=== PATIENT | female | born 1970 | race Caucasian/White ===

== ENCOUNTER 2022-05-10 18:46 | Emergency (ER) | payer BC ==
--- OUTSIDE RECORDS SUMMARY | 2022-05-10 18:49 | XMS REPORT | Continuity of Care Document ---
:1970 Author Organization [facility] t Address [address] [place] [address] Care Team Providers Name Role Phone Pcp, Patient Does Not Have A Primary Care Physician [id number] KAYLYN SAENZ Attending Clinician Unavailable KAYLYN SAENZ Attending Clinician Unavailable MEGAN LIND Attending Clinician Unavailable Tiarra Attending Clinician Unavailable Remberto Ulrich MD Attending Clinician Unavailable Lab, Ang - Db Attending Clinician Unavailable Megan Lind MD Attending Clinician REMBERTO ULRICH Attending Clinician Unavailable Doctor Unassigned, Oretta Attending Clinician Unavailable Mary Ashraf MA Attending Clinician Unavailable Juany Rubin MA Attending Clinician Unavailable Tiarra Admitting Clinician Unavailable Payers Payer Name Policy Type Policy Number Effective Date Expiration Date S ource [place] [id number] 2020 00:00:00 [place] [id number] 2020 00[place]00 [place] Problems Condition Condition Condition Status Onset Resolution Last Treating Co mments Source Name Details Category Date Date Treatment Clinician Date Menopausal Menopausal Disease Active U nivers and female and female 1-16 it y of clim[place] 00 Medica l Branch Overweight Overweight Disease Active U nivers (BMI (BMI 1-16 ity of 25.0-29.9) 25.0-29.9[place] Well woman Well woman Disease Active U nivers exam with exam with 10-28 ity of routine routine 00:00: [place] gynecologi gynecologi 00 Me dical brayden exam brayden exam Branch Hypertensi Hypertensi Disease Active Overview : Univers on on 08-14 Formattin ity of 00:00: g of this note Medical might be Branch different from the original. Last Assessmen t & Plan: Formattin g of this note might be different from the original. Based on her reported Measures at her gynecolog ist office the BP is controlle d on Losartan 50mg. No longer taking the Amlodipin e as in past visits. Will refill for 3 months and she will come in early November for blood draw then a face to face visit to assess BP. Get more exercise and continue to watch diet. 15 minutes spent with this telemed visit. Allergies, Adverse Reactions, Alerts Allergy Allergy Status Severity Reaction(s) Onset Inactive Treating Comm ents Source Name Type Date Date Clinician Hydrocod Propensi Active Unknown - Uni vers one ty to See comments 10-28 ity of adverse 00:00: [place] reaction 00 Medical s to Branch drug Penicill Propensi Active Rash Univer s ins ty to 10-28 ity of adverse 00:00: [place] reaction 00 Medical s Branch PENICILL Drug Active High Rash Univers INS Class 10-28 ity of 00:00: 00 Medical Branch HYDROCOD DRUG Active High Unknown-Cmnt Un brittany ONE INGREDI 10-28 ity of 00:00: 00 Medical Branch Penicill Propensi Active Rash Univer s ins ty to 10-28 ity of adverse 00:00: [place] reaction 00 Medical s Branch Penicill Propensi Active Rash 0 Univer s ins ty to 10-28 ity of adverse 00:00: [place] reaction 00 Medical s Branch NO KNOWN Drug Active Univers ALLERGIE Class ity of S [place] [facility] Hydrocod Allergy Active Naomi one to Orthope substanc dic e Sports Medicin e PENICILL Allergy Active Naomi INS to Orthope substanc dic e Sports Medicin e Social History Social Habit Start Date Stop Date Quantity Comments Source History [facility] o f Alcohol Std [place] Medical Drinks Branch History [facility] o f Alcohol Binge [place] Medic al Branch History [facility] o f Alcohol Comment [place] Med ical Branch Alcohol intake 2022-04-19 2022-04-19 Lifetime University of 00:00:00 00:00:00 non-drinker [facility] (finding) Branch Exposure to 2022-03-28 2022-04-07 Not sure University SARS-CoV-2 00:00:00 13:07:00 [facility] (event) Branch Tobacco use and 2021-12-29 2021-12-29 Smokeless tobacco Un iversity of exposure 00:00:00 00:00:00 non-user [facility] Branch History SDOH 2020-10-28 2020-10-28 1 University o f Alcohol Frequency 00:00:00 00:00:00 [facility] edical [place] Sex [birth year] Universit y of 00:00:00 00:00:00 [facility] Smoking Status Start Date Stop Date Source Never smoked tobacco [facility] Medications Ordered Filled Start Stop Current Ordering Indication Dosage Frequency Signature Comments Components Source Medication Medication Date Date Medication? Clinician (SIG) Name Name estradioL Yes [id number] 2g Insert 2 g Univers (ESTRACE) 1-04 into ity of 0.01 % (0.1 00:[place] mg/gram[place] 00 weekly. Medical vaginal Branch cream estradioL Yes [id number] 2g Insert 2 g Univers (ESTRACE) 1-04 into ity of 0.01 % (0.1 00:00: [place] mg/gram[place] 00 weekly. Medical vaginal Branch cream NUVARING Yes [id number] INSERT 1 Univers 0.12-0.015 7-11 RING ity of mg/24 hr 00:00: [place] vaginal 00 1 TIME Medical insert EVERY Branch MONTH. LEAVE IN PLACE FOR 3 CONSECUTIV E WEEKS, THEN REMOVE FOR 1 WEEK NUVARING Yes [id number] INSERT 1 Univers 0.12-0.015 7-11 RING ity of mg/24 hr 00:00: [place] vaginal 00 1 TIME Medical insert EVERY Branch MONTH. LEAVE IN PLACE FOR 3 CONSECUTIV E WEEKS, THEN REMOVE FOR 1 WEEK NUVARING Yes [id number] INSERT 1 Univers 0.12-0.015 7-11 RING ity of mg/24 hr 00:00: [place]ALLY [place] vaginal 00 1 TIME Medical insert EVERY Branch MONTH. LEAVE IN PLACE FOR 3 CONSECUTIV E WEEKS, THEN REMOVE FOR 1 WEEK NUVARING Yes [id number] INSERT 1 Univers 0.12-0.015 7-11 RING ity of mg/24 hr 00:00: [place]ALLY [place] vaginal 00 1 TIME Medical insert EVERY Branch MONTH. LEAVE IN PLACE FOR 3 CONSECUTIV E WEEKS, THEN REMOVE FOR 1 WEEK NUVARING Yes [id number] INSERT 1 Univers 0.12-0.015 7-11 RING ity of mg/24 hr 00:00: [place]ALLY [place] vaginal 00 1 TIME Medical insert EVERY Branch MONTH. LEAVE IN PLACE FOR 3 CONSECUTIV E WEEKS, THEN REMOVE FOR 1 WEEK NUVARING Yes [id number] INSERT 1 Univers 0.12-0.015 7-11 RING ity of mg/24 hr 00:00: [place]ALLY [place] vaginal 00 1 TIME Medical insert EVERY Branch MONTH. LEAVE IN PLACE FOR 3 CONSECUTIV E WEEKS, THEN REMOVE FOR 1 WEEK NUVARING Yes [id number] INSERT 1 Univers 0.12-0.015 7-11 RING ity of mg/24 hr 00:00: [place]AG[place]ALLY [place] vaginal 00 1 TIME Medical insert EVERY Branch MONTH. LEAVE IN PLACE FOR 3 CONSECUTIV E WEEKS, THEN REMOVE FOR 1 WEEK NUVARING Yes [id number] INSERT 1 Univers 0.12-0.015 7-11 RING ity of mg/24 hr 00:00: [place]ALLY [place] vaginal 00 1 TIME Medical insert EVERY Branch MONTH. LEAVE IN PLACE FOR 3 CONSECUTIV E WEEKS, THEN REMOVE FOR 1 WEEK NUVARING Yes [id number] INSERT 1 Univers 0.12-0.015 7-11 RING ity of mg/24 hr 00:00: [place]AG[place]ALLY [place] vaginal 00 1 TIME Medical insert EVERY Branch MONTH. LEAVE IN PLACE FOR 3 CONSECUTIV E WEEKS, THEN REMOVE FOR 1 WEEK NUVARING Yes [id number] INSERT 1 Univers 0.12-0.015 7-11 RING ity of mg/24 hr 00:00: [place]ALLY [place] vaginal 00 1 TIME Medical insert EVERY Branch MONTH. LEAVE IN PLACE FOR 3 CONSECUTIV E WEEKS, THEN REMOVE FOR 1 WEEK NUVARING Yes [id number] INSERT 1 Univers 0.12-0.015 7-11 RING ity of mg/24 hr 00:00: [place]AG[place]ALLY [place] vaginal 00 1 TIME Medical insert EVERY Branch MONTH. LEAVE IN PLACE FOR 3 CONSECUTIV E WEEKS, THEN REMOVE FOR 1 WEEK NUVARING Yes [id number] INSERT 1 Univers 0.12-0.015 7-11 RING ity of mg/24 hr 00:00: VAG[place]ALLY [place] vaginal 00 1 TIME Medical insert EVERY Branch MONTH. LEAVE IN PLACE FOR 3 CONSECUTIV E WEEKS, THEN REMOVE FOR 1 WEEK NUVARING Yes [id number] INSERT 1 Univers 0.12-0.015 7-11 RING ity of mg/24 hr 00:00: VAG[place]ALLY [place] vaginal 00 1 TIME Medical insert EVERY Branch MONTH. LEAVE IN PLACE FOR 3 CONSECUTIV E WEEKS, THEN REMOVE FOR 1 WEEK NUVARING Yes [id number] INSERT 1 Univers 0.12-0.015 7-11 RING ity of mg/24 hr 00:00: VAGINALLY [place] vaginal 00 1 TIME Medical insert EVERY Branch MONTH. LEAVE IN PLACE FOR 3 CONSECUTIV E WEEKS, THEN REMOVE FOR 1 WEEK NUVARING Yes [id number] INSERT 1 Univers 0.12-0.015 7-11 RING ity of mg/24 hr 00:00: VAGINALLY [place] vaginal 00 1 TIME Medical insert EVERY Branch MONTH. LEAVE IN PLACE FOR 3 CONSECUTIV E WEEKS, THEN REMOVE FOR 1 WEEK famotidine Yes Univers 40 mg 7-06 ity of tablet 00:00: [place] 00 Medical Branch famotidine Yes Univers 40 mg 7- ity of tablet 00:00: [place] 00 Medical Branch famotidine 2021- No Univer s 40 mg -12-29 ity of tablet 00:00: 00:00 [place] 00 :00 Medical Branch famotidine 2021- No Univer s 40 mg 10-07 ity of tablet 00:00: 00:00 [place] 00 :00 Medical Branch DULOXETINE Yes [id number] 20mg TAKE 1 U nivers 20 mg 6-06 CAPSULE BY ity of capsule 00:00: MOUTH [place] 00 DAILY Medical Branch DULOXETINE 2022-0 Yes [id number] 20mg TAKE 1 U nivers 20 mg 6-06 CAPSULE BY ity of capsule 00:00: MOUTH [place] 00 DAILY Medical Branch DULOXETINE 2022-0 Yes [id number] 20mg TAKE 1 U nivers 20 mg 6-06 CAPSULE BY ity of capsule 00:00: MOUTH [place] 00 DAILY Medical Branch DULOXETINE 2022-0 Yes [id number] 20mg TAKE 1 U nivers 20 mg 6-06 CAPSULE BY ity of capsule 00:00: MOUTH [place] 00 DAILY Medical Branch DULOXETINE 2-0 Yes [id number] 20mg TAKE 1 U nivers 20 mg 6-06 CAPSULE BY ity of capsule 00:00: MOUTH [place] 00 DAILY Medical Branch DULOXETINE 2-0 2022- No [id number] 20mg TAKE 1 Univers 20 mg 6-06 -27 CAPSULE BY ity of capsule 00:00: 00:00 [facility] 00 :00 DAILY Medical Branch DULOXETINE 2-0 2022- No [id number] 20mg TAKE 1 Univers 20 mg 6-09 10- CAPSULE BY ity of capsule 00:00: 00:00 [facility] 00 :00 DAILY Medical Branch montelukast 2021-0 Yes 10mg Take 10 mg Univers 10 mg 5-04 by mouth ity of tablet 00:00: in the [place] 00 morning. Medical Branch predniSONE 2021-0 Yes TAKE 3 Unive rs 20 mg 5-04 TABLETS BY ity of tablet 00:00: [place] [address] EVERY DAY Medical FOR 3 DAYS Branch THEN TAKE 2 TABLETS BY MOUTH EVERY DAY FOR 3 DAYS THEN TAKE 1 TABLET BY MOUTH EVERY DAY FOR 3 DAYS montelukast 2021-0 Yes 10mg Take 10 mg Univers 10 mg 5-04 by mouth ity of tablet 00:00: in the [place] 00 morning. Medical Branch predniSONE 2-0 Yes TAKE 3 Unive rs 20 mg 5-04 TABLETS BY ity of tablet 00:00: [place] [address] EVERY DAY Medical FOR 3 DAYS Branch THEN TAKE 2 TABLETS BY MOUTH EVERY DAY FOR 3 DAYS THEN TAKE 1 TABLET BY MOUTH EVERY DAY FOR 3 DAYS montelukast 2022-0 2022- No 10mg Take 10 mg Univers 10 mg 5-04 -27 by mouth ity of tablet 00:00: 00:00 in the [place] 00 :00 morning. Medical Branch predniSONE 2022-0 2021- No TAKE 3 Univ ers 20 mg 08-05 TABLETS BY ity of tablet 00:00: 00:00 MOUTH [place] 00 :00 EVERY DAY Medical FOR 3 DAYS Branch THEN TAKE 2 TABLETS BY MOUTH EVERY DAY FOR 3 DAYS THEN TAKE 1 TABLET BY MOUTH EVERY DAY FOR 3 DAYS montelukast 2021-2021- No 10mg Take 10 mg Univers 10 mg 08-05 by mouth ity of tablet 00:00: 00:00 in the [place] 00 :00 morning. Medical Branch predniSONE 2021-2021- No TAKE 3 Univ ers 20 mg 08-05 TABLETS BY ity of tablet 00:00: 00:00 MOUTH [place] 00 :00 EVERY DAY Medical FOR 3 DAYS Branch THEN TAKE 2 TABLETS BY MOUTH EVERY DAY FOR 3 DAYS THEN TAKE 1 TABLET BY MOUTH EVERY DAY FOR 3 DAYS DULoxetine Yes [id number] 30mg Take 1 U nivers (CYMBALTA) 7-27 capsule by ity of 30 mg 00:00: mouth [place] capsule 00 daily. Medical Branch DULoxetine Yes [id number] 30mg Take 1 U nivers (CYMBALTA) 7-27 capsule by ity of 30 mg 00:00: mouth [place] capsule 00 daily. Medical Branch DULoxetine Yes [id number] 30mg Take 1 U nivers (CYMBALTA) 7-27 capsule by ity of 30 mg 00:00: mouth [place] capsule 00 daily. Medical Branch DULoxetine Yes [id number] 30mg Take 1 U nivers (CYMBALTA) 7-27 capsule by ity of 30 mg 00:00: mouth [place] capsule 00 daily. Medical Branch DULoxetine Yes [id number] 30mg Take 1 U nivers (CYMBALTA) 7-27 capsule by ity of 30 mg 00:00: mouth [place] capsule 00 daily. Medical Branch DULoxetine Yes [id number] 30mg Take 1 U nivers (CYMBALTA) 7-27 capsule by ity of 30 mg 00:00: mouth [place] capsule 00 daily. Medical Branch DULoxetine Yes [id number] 30mg Take 1 U nivers (CYMBALTA) 7-27 capsule by ity of 30 mg 00:00: mouth [place] capsule 00 daily. Medical Branch DULoxetine Yes [id number] 30mg Take 1 U nivers (CYMBALTA) 7-27 capsule by ity of 30 mg 00:00: mouth [place] capsule 00 daily. [facility] Branch DULoxetine Yes [id number] 30mg Take 1 U nivers (CYMBALTA) 7-27 capsule by ity of 30 mg 00:00: mouth [place] capsule 00 daily. [facility] Branch DULoxetine Yes [id number] 30mg Take 1 U nivers (CYMBALTA) 7-27 capsule by ity of 30 mg 00:00: mouth [place] capsule 00 daily. [facility] Branch DULoxetine Yes [id number] 30mg Take 1 U nivers (CYMBALTA) 7-27 capsule by ity of 30 mg 00:00: mouth [place] capsule 00 daily. [facility] Branch DULoxetine Yes [id number] 30mg Take 1 U nivers (CYMBALTA) 7-27 capsule by ity of 30 mg 00:00: mouth [place] capsule 00 daily. [facility] Branch NUVARING Yes [id number] 1{each} Insert 1 Univers (NUVARING) 7-27 Each into ity of 0.12-0.015 00:00: vagina [place] mg/24 hr 00 once every Medic al vaginal month. Branch insert Insert vaginally and leave in place for 3 consecutiv e weeks, then remove for 1 week. DULoxetine Yes [id number] 30mg Take 1 U nivers (CYMBALTA) 7-27 capsule by ity of 30 mg 00:00: mouth [place] capsule 00 daily. [facility] Branch DULoxetine Yes [id number] 20mg Take 1 U nivers (CYMBALTA) 7-27 capsule by ity of 20 mg 00:00: mouth [place] capsule 00 daily. [facility] Branch NUVARING Yes [id number] 1{each} Insert 1 Univers (NUVARING) 7-27 Each into ity of 0.12-0.015 00:00: vagina [place] mg/24 hr 00 once every Medic al vaginal month. Branch insert Insert vaginally and leave in place for 3 consecutiv e weeks, then remove for 1 week. DULoxetine 2020- Yes [id number] 30mg Take 1 U nivers (CYMBALTA) 7-27 capsule by ity of 30 mg 00:00: mouth [place] capsule 00 daily. Medical Branch DULoxetine Yes [id number] 20mg Take 1 U nivers (CYMBALTA) 7-27 capsule by ity of 20 mg 00:00: mouth [place] capsule 00 daily. [facility] Branch NUVARING Yes [id number] 1{each} Insert 1 Univers (NUVARING) 7-27 Each into ity of 0.12-0.015 00:00: vagina [place] mg/24 hr 00 once every Medic al vaginal month. Branch insert Insert vaginally and leave in place for 3 consecutiv e weeks, then remove for 1 week. DULoxetine Yes [id number] 30mg Take 1 U nivers (CYMBALTA) 7-27 capsule by ity of 30 mg 00:00: mouth [place] capsule 00 daily. Medical Branch DULoxetine Yes [id number] 20mg Take 1 U nivers (CYMBALTA) 7-27 capsule by ity of 20 mg 00:00: mouth [place] capsule 00 daily. Medical Branch NUVARING Yes [id number] 1{each} Insert 1 Univers (NUVARING) 7-27 Each into ity of 0.12-0.015 00:00: vagina [place] mg/24 hr 00 once every Medic al vaginal month. Branch insert Insert vaginally and leave in place for 3 consecutiv e weeks, then remove for 1 week. DULoxetine Yes [id number] 30mg Take 1 U nivers (CYMBALTA) 7-27 capsule by ity of 30 mg 00:00: mouth [place] capsule 00 daily. Medical Branch DULoxetine Yes [id number] 20mg Take 1 U nivers (CYMBALTA) 7-27 capsule by ity of 20 mg 00:00: mouth [place] capsule 00 daily. [facility] Branch NUVARING Yes [id number] 1{each} Insert 1 Univers (NUVARING) 7-27 Each into ity of 0.12-0.015 00:00: vagina [place] mg/24 hr 00 once every Medic al vaginal month. Branch insert Insert vaginally and leave in place for 3 consecutiv e weeks, then remove for 1 week. DULoxetine 2020-0 Yes [id number] 30mg Take 1 U nivers (CYMBALTA) 7-27 capsule by ity of 30 mg 00:00: mouth [place] capsule 00 daily. Medical Branch DULoxetine Yes [id number] 30mg Take 1 U nivers (CYMBALTA) - capsule by ity of 30 mg 00:00: mouth [place] capsule 00 daily. Medical Branch DULoxetine Yes [id number] 30mg Take 1 U nivers (CYMBALTA) - capsule by ity of 30 mg 00:00: mouth [place] capsule 00 daily. Medical Branch DULoxetine Yes [id number] 30mg Take 1 U nivers (CYMBALTA) 10-28 capsule by ity of 30 mg 00:00: mouth [place] capsule 00 daily. Medical Branch NUVARING 2021- No [id number] 1{each} Insert 1 Univers (NUVARING) 10-28 07-11 Each into ity of 0.12-0.015 00:00: 00:00 [place] mg/24 hr 00 :00 once every Medic al vaginal month. Branch insert Insert vaginally and leave in place for 3 consecutiv e weeks, then remove for 1 week. DULoxetine 2021- No [id number] 20mg Take 1 Univers (CYMBALTA) 10-28 06-06 capsule by it y of 20 mg 00:00: 00:00 mouth [place] capsule 00 :00 daily. Medical Branch losartan 50 0 Yes Univer s mg tablet 10-23 ity of 00:00: [place] 00 Medical Branch losartan 50 2020-0 Yes Univer s mg tablet 10-23 ity of 00:00: 00 Medical Branch losartan 50 2020-0 Yes Univer s mg tablet 7-22 ity of 00:00: [place] 00 Medical Branch losartan 50 2020-0 Yes Univer s mg tablet 7-22 ity of 00:00: [place] 00 Medical Branch losartan 50 2020-0 Yes Univer s mg tablet 7- ity of 00:00: 00 Medical Branch losartan 50 2020-0 Yes Univer s mg tablet 7-22 ity of 00:00: 00 Medical Branch losartan 50 2020-0 Yes Univer s mg tablet 7-22 ity of 00:00: 00 Medical Branch losartan 50 2020-0 Yes Univer s mg tablet 7-22 ity of 00:00: Medical Branch losartan 50 2020-0 Yes Univer s mg tablet 10-23 ity of 00:00: Medical Branch losartan 50 2020-0 Yes Univer s mg tablet 10-23 ity of 00:00: Medical Branch losartan 50 2020-0 Yes Univer s mg tablet 10-23 ity of 00:00: [place] [facility] losartan 50 2020-0 Yes Univer s mg tablet 10-23 ity of 00:00: [place] Medical [facility] losartan 50 2020-0 Yes Univer s mg tablet 10-23 ity of 00:00: [place] Medical Branch losartan 50 2020-0 Yes Univer s mg tablet 10-23 ity of 00:00: [place] Medical [facility] losartan 50 2020-0 Yes Univer s mg tablet 10-23 ity of 00:00: [place] Medical Branch losartan 50 2020-0 Yes Univer s mg tablet 10-23 ity of 00:00: [place] Medical Branch losartan 50 2020-0 Yes Univer s mg tablet 10-23 ity of 00:00: [place] Medical Branch losartan 50 2020-0 Yes Univer s mg tablet 10-23 ity of 00:00: [place] Medical [facility] losartan 50 2020-0 Yes Univer s mg tablet 10-23 ity of 00:00: [place] [facility] losartan 50 2020-0 Yes Univer s mg tablet 10-23 ity of 00:00: [place] [facility] duloxetine duloxetine No duloxetine Naomi 60 mg 60 mg 60 mg Orthope capsule,del capsule,del capsule,de dic ayed ayed layed Sports release release release Medici n TAKE 1 TAKE 1 TAKE 1 e CAPSULE BY CAPSULE BY CAPSULE BY MOUTH EVERY MOUTH EVERY MOUTH DAY DAY EVERY DAY hydrocodone hydrocodone No 1 Q8H hydrocodon Naomi 5 5 e 5 Orthope mg-acetamin mg-acetamin mg-acetami dic ophen 325 ophen 325 nophen 325 Sports mg tablet mg tablet mg tablet Medicin Take 1 Take 1 Take 1 e tablet tablet tablet every 8 every 8 every 8 hours by hours by hours by oral route oral route oral route as needed. as needed. as needed. meloxicam meloxicam No 1 Q1D meloxicam Naomi 15 mg 15 mg 15 mg Orth[facility] tablet Take tablet Take tablet dic 1 tablet 1 tablet Take 1 Sport s every day every day tablet Med icin by oral by oral every day e route for route for by oral 30 days. 30 days. route for 30 days. methylpredn methylpredn No methylpred Naomi isolone 4 isolone 4 nisolone 4 Orthope mg tablets mg tablets mg tablets dic in a dose in a dose in a dose Sports pack Take pack Take pack Take Medicin by oral by oral by oral e route as route as route as directed directed directed Immunizations Ordered Filled Immunization Date Status Comments [facility] e Immunization Name Name SARS-COV-2 COVID-19 2020-11-18 Completed Unive rsity of PFIZER VACCINE 00:00:00 [facility] SARS-COV-2 COVID-19 2020-11-18 Completed Unive rsity of PFIZER VACCINE 00:00:00 [facility] SARS-COV-2 COVID-19 2020-10-28 Completed Unive rsity of PFIZER VACCINE 00:00:00 [facility] SARS-COV-2 COVID-19 2020-10-28 Completed Unive rsity of PFIZER VACCINE 00:00:00 [facility] Vital Signs Vital Name Observation Time Observation Value Comments Source Systolic blood 2022-04-07 19:23:00 101 mm[Hg] Univer sity of pressure [facility] Diastolic blood 2022-04-07 19:23:00 67 mm[Hg] Unive rsity of pressure [facility] Heart rate 2022-04-07 19:23:00 113 /min [facility] Body height 2022-04-07 19:23:00 167.6 cm [facility] Body weight 2022-04-07 19:23:00 74.39 kg [facility] BMI 2022-04-07 19:23:00 26.47 kg/m2 [facility] Oxygen saturation in 2022-04-07 19:23:00 97 /min [facility] Arterial blood by [facility] [place] [facility] Pulse oximetry Branch Height 2022-03-10 00:00:00 66 [in_i] [facility] BMI (Body Mass 2022-03-10 00:00:00 27.4 kg/m2 Naomi Orthopedic Index) Sports Medicine Body Weight 2022-03-10 00:00:00 170 [lb_av] [facility] Height 2022-02-17 00:00:00 66 [in_i] [facility] BMI (Body Mass 2022-02-17 00:00:00 27.4 kg/m2 Na[facility] Orthopedic Index) Sports Medicine Body Weight 2022-02-17 00:00:00 170 [lb_av] [facility] Height 2022-02-10 00:00:00 66 [in_i] [facility] BMI (Body Mass 2022-02-10 00:00:00 27.4 kg/m2 Naomi Orthopedic Index) Sports Medicine Body Weight 2022-02-10 00:00:00 170 [lb_av] [facility] Systolic blood 2021-12-29 15:22:00 137 mm[Hg] Univer sity of pressure [facility] Diastolic blood 2021-12-29 15:22:00 90 mm[Hg] [facility] Heart rate 2021-12-29 15:20:00 96 /min [facility] Body temperature 2021-12-29 15:20:00 36.83 [facility] Respiratory rate 2021-12-29 15:20:00 16 /min [facility] Body height 2021-12-29 15:20:00 167.6 cm [facility] Body weight 2021-12-29 15:20:00 77.61 kg [facility] BMI 2021-12-29 15:20:00 27.62 kg/m2 [facility] Oxygen saturation in 2021-12-29 15:20:00 100 /min [facility] Arterial blood by [facility] [place] [facility] Pulse oximetry Branch Procedures Procedure Date / Time Performed Performing Clinician Sour e MRI CERVICAL SPINE W/O 2022-03-04 00:00:00 Rubi morales Orthopedic CONTRAST Sports Medicine RADEX SPI LUMBOSAC 2022-02-10 00:00:00 Naomi baugh MINIMUM 4 VIEWS Sports Medicine MRI, lumbar spine, w/o 2022-02-10 00:00:00 Azale a Orthopedic contrast Sports Medicine MRI CERVICAL SPINE W/O 2022-02-10 00:00:00 Rubi morales Orthopedic CONTRAST Sports Medicine ASSIGNMENT OF BENEFITS 2021-12-29 14:59:56 Doctor Unassigned, No [facility] EXTERNAL PROVIDER 2020-12-04 05:01:00 [facility] 2019-10-17 00:00:00 Doctor Unassigned, No Uni versity [facility] EXTERNAL PAP SMEAR 2019-08-15 15:29:00 Doctor Unassigned, No Uni versity of [facility] Knee Surgery Naomi Orthopedi c Sports Medicine Encounters Start End Encounter Admission Attending Care Care Encounter Source Date/Time Date/Time Type Type Clinicians Facility Department ID 2022-06-30 2022-06-30 Outpatient R KAYLYN SAENZ [facility] [id number] Univers 09:00:00 09:00:00 KAYLYN SAENZ [facility] 2022-04-07 2022-04-07 Outpatient R KAYLYN SAENZ [facility] [id number] Univers 13:00:00 13:59:20 KAYLYN SAENZ [facility] 2022-04-07 2022-04-07 Office Eulalio [facility] [id number] [facility] 13:00:00 13:59:20 Visit Kaylyn MARRERO [id number] it y of WOMEN'S [id number] [facility] [id number] [address] 2022-04-06 2022-04-06 Outpatient R JONNY [facility] [id number] Univers 08:30:00 08:30:00 MEGAN rodriguez [facility] 2022-03-19 2022-03-19 Outpatient FOG_Taba_Ho AOSM AOSM [id number] Naomi 00:00:00 00:00:00 [place] [id number] Orthop e dic Sports Medicin e 2022-03-12 2022-03-12 Outpatient FOG_Taba_Ho AOSM AOSM [id number] Naomi 00:00:00 00:00:00 [place] [id number] Orthop e dic Sports Medicin e 2022-03-10 2022-03-10 Outpatient FOG_Taba_Ho AOSM AOSM [id number] Naomi 00:00:00 00:00:00 [place] [id number] Orthop e dic Sports Medicin e 2022-03-10 2022-03-10 [place] [facility]OS[facility] [place] - Ortho [id number] Naomi 00:00:00 00:00:00 MD Nisha: Thais Bhandari [facility] [address] [place], [place] [employer] [address], [place] [address] , Ph. [phone] 2022-03-09 2022-03-09 Outpatient FOG_Taba_Ho AOSM AOSM [id number] Naomi 00:00:00 00:00:00 Yokasta [id number] Orthop e dic Sports Medicin e 2022-03-02 2022-03-02 Outpatient Nan LIND [facility] [id number] Univers 15:00:00 15:00:00 MEGAN rodriguez [facility] 2022-02-17 2022-02-17 Outpatient FOG_Taba_Ho AOSM AOSM [id number] Naomi 00:00:00 00:00:00 Yokasta [id number] Orthop e dic Sports Medicin e 2022-02-17 2022-02-17 [place] - Ortho [id number] Naomi 00:00:00 00:00:00 MD Nisha: Thais Crowder [address] [place], [employer] [address], [place] [address] , Ph. [phone] 2022-02-10 2022-02-10 Outpatient FOG_Taba_Ho AOSM AOSM [id number] Naomi 00:00:00 00:00:00 Yokasta [id number] Orthop e dic Sports Medicin e 2022-02-10 2022-02-10 [place] - Ortho [id number] Naomi 00:00:00 00:00:00 MD Nisha: Thais Aragon - Orthope [address] [place], [place] [address], [place] [address] , Ph. [phone] 2022-02-03 2022-02-03 Outpatient FOG_Taba_Ho AOSM AOSM [id number] Naomi 00:00:00 00:00:00 Yokasta [id number] Orthop e dic Sports Medicin e 2022-02-01 2022-02-01 Refill Remberto Ulrich [facility] 1.2.840.114 [id number] Univers 00:00:00 00:00:00 JAMAAL 350.1.13.10 it [place] [id number] [address] 2022-01-28 2022-01-28 Controller [employer], Ang - Db [facility] 1.2.840.1 [id number] Univers 07:45:00 08:00:00 Visit AdMegan yousif 350.1.13.10 ity of [place] 4.2.7.2.686 Stephen as SANDEEP?BLEA [id number] [facility] [address] MEDICAL OFFICE BUILDING 2022-01-28 2022-01-28 Out[facility] [id number] Univers 07:45:00 07:45:00 MEGAN rodriguez [facility] 2022-01-26 2022-01-26 Outpatient R [facility] [id number] Univers 09:30:00 09:30:00 MEGAN rodriguez [facility] 2022-01-25 2022-01-25 [facility] 1.2.840.114 [id number] Univers 00:00:00 00:00:00 Megan MARRERO 350.1.13.10 i ty of PEDIATRIC 4.2.7.2.686 [facility] [id number] [address] 2022-01-11 2022-01-11 Refill Remberto Ulrich [facility] 1.2.840.114 [id number] Univers 00:00:00 00:00:00 JAMAAL 350.1.13.10 it [place] [id number] [address] 2021-12-30 2021-12-30 Telephone Remberto Ulrich 1.2.840.11 [id number] Univers 00:00:00 00:00:00 JAMAAL 350.1.13.10 it [place] [id number] [address] 2021-12-29 2021-12-29 Office Remberto Ulrich 1.2.840.114 [id number] Univers 10:00:00 10:48:15 Visit JAMAAL 350.1.13.10 it [place] [id number] [address] 2021-12-29 2021-12-29 Outpatient R REMBERTO ULRICH [facility] [id number] Univers 10:00:00 10:48:15 ity [facility] 2021-12-29 2021-12-29 Orders Doctor ALLIE 1.2.840.114 [id number] Univers 00:00:00 00:00:00 Only Unassigned, SURESH 350.1.13.10 ity of [place] [facility] 4.2.7.2.686 Stephen as [id number] [place] [address] [address] 2021-12-22 2021-12-22 Pre Visit SUZANNE Ashraf [id number] Univers 00:00:00 00:00:00 Outreach Mary SOTO 350.1.13.10 [place] [id number] [facility] [address] [place] 2021-10-29 2021-10-29 Outpatient R REMBERTO ULRICH [facility] [id number] Univers 10:00:00 10:00:00 ity [facility] 2021-10-22 2021-10-22 Pre Visit SUZANNE Ashraf [id number] Univers 00:00:00 00:00:00 Outreach Mary SOTO 350.1.13.10 [place] [id number] [facility] [address] 2021-10-11 2021-10-11 Refill Remberto Ulrich [place] 1.2.840.114 [id number] Univers 00:00:00 00:00:00 JAMAAL 350.1.13.10 it [place] [id number] [address] 2021-08-29 2021-08-29 Refill Remberto Ulrich [facility] 1.2.840.114 [id number] Univers 00:00:00 00:00:00 JAMAAL 350.1.13.10 it [place] [id number] [address] 2021-06-19 2021-06-19 Pre Visit SUZANNE Rubin 1.2.840.114 [id number] Univers 00:00:00 00:00:00 Outreach Juany [place] 350.1.13.10 [place] [id number] [address] 2020-12-04 2020-12-04 Orders Doctor ALLIE 1.2.840.114 [id number] Univers 00:00:00 00:00:00 Only Unassigned, SURESH 350.1.13.10 ity of [place] [facility] 4.2.7.2.686 Stephen as [id number] [facility] [address] 2020-11-11 2020-11-11 [facility] 1.2.840.11 [id number] Univers 00:00:00 00:00:00 Jamaal 350.1.13.10 it [place] [id number] [address] 2020-10-28 2020-10-28 Outpatient R REMBERTO ULRICH [facility] [id number] Univers 14:00:00 14:00:00 ity of [facility] Results This patient has no known results.
[2022-05-10] MEDS ORDERED: THIAMINE 200 MG/2 ML INJ ONE ×2 (19:22→20:11)
[2022-05-10] MEDS ORDERED: NA CHLORIDE 0.9% 1,000 ML ONE ×3 (19:22→21:52)
[2022-05-10] MEDS ORDERED: FOLIC ACID 5 MG/ML VIAL ONE (19:23)
[2022-05-10] MEDS ORDERED: MULTIVITAMINS 10 ML VIAL (INJ) IV ONE (19:24)
--- NOTE | 2022-05-10 19:42 | EDPHYS ---
Physician Documentation [facility] Name: Maria Fernanda Walker Age: 51 yrs Sex: Female : 1970 Arrival Date: 05/10/2022 Time: 18:47 Bed 4 Private MD: ED Physician Jaxon Elise HPI: 05/10 19:21 This 51 yrs old Female presents to ER via EMS with complaints of Jaundice, memo Dizziness. Historical: - Allergies: 19:02 PENICILLINS; ss 19:02 Codeine; ss - Home Meds: 19:02 losartan 50 mg oral tab 1 tab once daily [Active]; Cymbalta 60 mg oral cpDR 1 cap once ss daily [Active]; - PMHx: 19:02 Hypertensive disorder; Anxiety; ss - PSHx: 19:02 knee repair; ss - Social history:: Smoking status: unknown Patient uses alcohol, on a daily basis. ROS: 19:22 Constitutional: Negative for fever, chills, and weight loss, ENT: Negative for injury, memo pain, and discharge, Neck: Negative for injury, pain, and swelling, Respiratory: Negative for shortness of breath, cough, wheezing, and pleuritic chest pain, Abdomen/GI: Negative for abdominal pain, nausea, vomiting, diarrhea, and constipation, Back: Negative for injury and pain, : Negative for injury, bleeding, discharge, and swelling, Neuro: Negative for headache, weakness, numbness, tingling, and seizure, Psych: Negative for depression, anxiety, suicide ideation, homicidal ideation, and hallucinations, Allergy/Immunology: Negative for hives, rash, and allergies, Endocrine: Negative for neck swelling, polydipsia, polyuria, polyphagia, and marked weight changes, Hematologic/Lymphatic: Negative for swollen nodes, abnormal bleeding, and unusual bruising. 19:22 Eyes: Positive for icterus. 19:22 Cardiovascular: Positive for palpitations. 19:22 Skin: Positive for jaundice. 19:22 Neuro: Negative for altered mental status. Exam: 19:22 Constitutional: This is a well developed, well nourished patient who is awake, alert, memo and in no acute distress. Head/Face: Normocephalic, atraumatic. Eyes: Pupils equal round and reactive to light, extra-ocular motions intact. Lids and lashes normal. Conjunctiva and sclera are non-icteric and not injected. Cornea within normal limits. Periorbital areas with no swelling, redness, or edema. ENT: Nares patent. No nasal discharge, no septal abnormalities noted. Tympanic membranes are normal and external auditory canals are clear. Oropharynx with no redness, swelling, or masses, exudates, or evidence of obstruction, uvula midline. Mucous membranes moist. Neck: Trachea midline, no thyromegaly or masses palpated, and no cervical lymphadenopathy. Supple, full range of motion without nuchal rigidity, or vertebral point tenderness. No Meningismus. Chest/axilla: Normal chest wall appearance and motion. Nontender with no deformity. No lesions are appreciated. Cardiovascular: Regular rate and rhythm with a normal S1 and S2. No gallops, murmurs, or rubs. Normal PMI, no JVD. No pulse deficits. Respiratory: Lungs have equal breath sounds bilaterally, clear to auscultation and percussion. No rales, rhonchi or wheezes noted. No increased work of breathing, no retractions or nasal flaring. Back: No spinal tenderness. No costovertebral tenderness. Full range of motion. MS/ Extremity: Pulses equal, no cyanosis. Neurovascular intact. Full, normal range of motion. Neuro: Awake and alert, GCS 15, oriented to person, place, time, and situation. Cranial nerves II-XII grossly intact. Motor strength 5/5 in all extremities. Sensory grossly intact. Cerebellar exam normal. Normal gait. Psych: Awake, alert, with orientation to person, place and time. Behavior, mood, and affect are within normal limits. 19:22 Respiratory: the patient does not display signs of respiratory distress, Respirations: normal, Breath sounds: are clear throughout, Respiratory rate: 18 19:22 Abdomen/GI: Inspection: distension, that is mild, Bowel sounds: normal, Palpation: soft, Liver: is firm, is enlarged, palpable 8 cm(s) below rib margin, Hernia: not appreciated. 19:22 Skin: Appearance: Color: jaundiced, Temperature: normal temperature, Moisture: normal moisture, petechiae, not noted, ecchymosis, not noted. 19:22 Neuro: Orientation: is normal, appropriate for stated age, no acute changes, per family, Mentation: is normal, appropriate for stated age, no acute changes, Memory: is normal, appropriate for stated age, no acute changes, Cerebellar function: is grossly normal, Motor: is normal, no acute changes, moves all fours, strength is 5/5 in all extremities, Sensation: is normal, no obvious gross deficits, appropriate no acute changes, Babinski testing is normal, seizure activity, is not displayed by the patient. 20:22 ECG was reviewed by the Attending Physician. [facility] 20:22 Abdomen/GI: Rectal exam: rectal tone normal, hemorrhoid(s), are not appreciated, mass, is not appreciated, swelling, is not appreciated, tenderness, is not appreciated, fecal impaction, is not appreciated, no melena, no gross blood, the exam is chaperoned by the nurse. Vital Signs: 18:58 BP 93 / 47; Pulse 102; Resp 18; Temp 97.8(O); Pulse Ox 100% on R/A; ss 20:40 BP 102 / 58; Pulse 105; Resp 15; Pulse Ox 98% on R/A; lg3 20:57 Weight 81.65 kg; mw2 21:02 BP 102 / 59; Pulse 104; Resp 19 S; Pulse Ox 98% on R/A; ha1 23:19 BP 98 / 46; Pulse 105; Resp 17 S; Pulse Ox 99% on R/A; lg3 23:55 BP 76 / 46; Pulse 106; Resp 17; Temp 97.8(O); Pulse Ox 97% on R/A; lg3 02/07 00:40 BP 86 / 41; Pulse 108; Resp 20; Pulse Ox 97% on R/A; lg3 01:40 BP 97 / 66; Pulse 108; Resp 19; Temp 97.7; Pulse Ox 99% on R/A; lg3 02:45 BP 80 / 38; Pulse 107; Resp 19; Pulse Ox 98% on R/A; lg3 03:15 BP 99 / 74; Pulse 106; Resp 19; Temp 97.6; Pulse Ox 97% on R/A; lg3 Procedures: 01:11 Central Line: the site was prepped with Betadine, in sterile fashion, a triple lumen memo catheter was inserted, in the right femoral vein, in 1 attempts. placement was verified, by blood return, the site was dressed with using sterile technique, the patient tolerated the procedure, well. MDM: 05/10 19:05 Patient medically screened. memo 19:35 Differential diagnosis: generalized weakness, GI bleed, idiopathic dizziness. Data [facility] reviewed: vital signs, nurses notes, lab test result(s), EKG, radiologic studies, CT scan, plain films. Consideration of Admission/Observation Patient was admitted/placed on observation. Escalation of care including admission/observation considered. I considered the following discharge prescriptions or medication management in the emergency department Medications were administered in the Emergency Department. See MAR. Test considered but Not performed: MRI: mri abd pelvis. Care significantly affected by the following chronic conditions: Hypertension. 05/10 18:53 Order name: Basic Metabolic Panel; Complete Time: 20:50 snw 05/10 18:53 Order name: CBC with Diff; Complete Time: 22:10 snw 05/10 18:53 Order name: LFT's; Complete Time: 20:50 snw 05/10 18:53 Order name: Magnesium; Complete Time: 20:50 snw 05/10 18:53 Order name: NT PRO-BNP; Complete Time: 20:50 snw 05/10 18:53 Order name: PT-INR; Complete Time: 20:29 snw 05/10 18:53 Order name: Troponin HS; Complete Time: 20:50 snw 05/10 18:53 Order name: Acetaminophen; Complete Time: 20:50 snw 05/10 18:53 Order name: ETOH Level; Complete Time: 20:04 snw 05/10 18:53 Order name: Salicylate; Complete Time: 22:43 snw 05/10 19:21 Order name: Lipase; Complete Time: 20:50 memo 05/10 19:21 Order name: Blood Culture Adult (2) [facility] 05/10 19:21 Order name: Lactate w/ 2H reflex if indic.; Complete Time: 20:50 memo 05/10 18:53 Order name: XRAY Chest (1 view); Complete Time: 20:04 snw 05/10 19:22 Order name: AMMONIA; Complete Time: 20:50 memo 05/10 20:07 Order name: SARS RAPID; Complete Time: 22:10 mw2 05/10 20:12 Order name: Type And Screen [facility] 05/10 20:50 Order name: Osmolality, Serum [facility] 05/10 21:16 Order name: Manual Differential; Complete Time: 22:10 EDMS 05/10 22:33 Order name: Osmolality, Serum; Complete Time: 22:43 EDDC 05/10 23:49 Order name: Packed RBCs (Additional Unit) EDDC 05/11 01:24 Order name: CBC with Diff [facility] 05/11 01:24 Order name: Comprehensive Metabolic Panel [facility] 05/11 02:39 Order name: Manual Differential EDDC 05/10 18:53 Order name: EKG; Complete Time: 18:54 snw 05/10 18:53 Order name: Cardiac monitoring; Complete Time: 19:04 snw 05/10 18:53 Order name: EKG - Nurse/Tech; Complete Time: 19:04 snw 05/10 18:53 Order name: IV Saline Lock; Complete Time: 20:05 snw 05/10 18:53 Order name: Labs collected and sent; Complete Time: 20:05 snw 05/10 18:53 Order name: O2 Per Protocol; Complete Time: 19:04 snw 05/10 18:53 Order name: O2 Sat Monitoring; Complete Time: 19:04 snw 05/10 19:21 Order name: Foot Left 3 View XRAY; Complete Time: 20:04 [facility] 05/10 19:50 Order name: Head C Spine Cap Wo Con; Complete Time: 20:50 EDDC 05/10 20:12 Order name: Transfuse; Complete Time: 02:36 [facility] 05/10 21:01 Order name: IV Saline Lock - Large Bore; Complete Time: 23:21 [facility] 05/11 00:37 Order name: Central Line Kit; Complete Time: 00:56 [facility] EC:22 Rate is 102 beats/min. Rhythm is regular. QRS [place] is Normal. [place] interval is normal. [facility] QRS interval is normal. QT interval is normal. No Q waves. T waves are Normal. No ST changes noted. Clinical impression: Sinus tachycardia and No evidence of ischemia. Interpreted by me. Reviewed by me. Administered Medications: 19:36 Drug: Banana Bag - (NS 0.9% 1000 ml, foLIC Acid 1 mg, Thiamine 100 mg, Multivitamin 1 lg3 amp) Route: IV; Rate: 100 calculated rate; Site: right forearm; 23:22 Follow up: IV Status: Infusion continued upon transfer; IV Intake: 300ml lg3 20:32 Drug: Thiamine 100 mg Route: IV; Rate: per protocol; Site: right forearm; lg3 20:34 Follow up: IV Status: Completed infusion lg3 20:32 Drug: ProTONIX (pantoprazole) 40 mg Route: IVP; Site: right forearm; lg3 20:44 Follow up: Response: No adverse reaction lg3 20:32 Drug: NS 0.9% 1000 ml Route: IV; Rate: 1 bolus; Site: right forearm; lg3 20:45 Follow up: IV Status: Completed infusion; IV Intake: 1000ml lg3 20:45 Drug: Rocephin (cefTRIAXone) 1 grams Route: IV; Rate: per protocol; Site: right forearm;ha1 23:22 Follow up: IV Status: Completed infusion lg3 20:55 Drug: Ativan (LORazepam) 2 mg Route: IVP; Site: right forearm; ha1 23:22 Follow up: Response: No adverse reaction; RASS: Alert and Calm (0) lg3 21:01 Drug: Vitamin K1 (phytonadione) 10 mg Route: Sub-Q; Site: abdomen; ha1 23:22 Follow up: Response: No adverse reaction lg3 05/11 02:00 Drug: Magnesium Sulfate 1 grams Route: IVPB; Infused Over: 1 hrs; Site: right femoral; lg3 02:52 Follow up: Response: No adverse reaction; IV Status: Completed infusion; IV Intake: lg3 100ml 02:36 Drug: Silvadene (silver sulfADIAZINE) Cream 1 % 1 application Route: Topical; Site: lg3 affected area; 02:45 Drug: Levophed (norepinephrine) 0.1 mcg/kg/min Route: IV; Rate: calculated rate; Site: lg3 right femoral; 02:49 Follow up: Rate change 10 ml/hr lg3 03:16 Follow up: IV Status: Infusion continued upon transfer lg3 Disposition Summary: 05/10/22 19:42 Transfer Ordered Transfer Location: [facility] memo Reason: Higher level of care memo Condition: Fair memo Problem: new memo Symptoms: are unchanged memo Accepting Physician: to liver team(05/11/22 03:28) lg3 Diagnosis - Acute and subacute hepatic failure memo - Hepatic failure, unspecified without coma memo - Alcohol abuse memo - Anemia, unspecified memo - Elevated white blood cell count, unspecified memo - Hypo-osmolality and hyponatremia memo - Other acute kidney failure memo - Coronavirus infection, unspecified memo - SARS-associated coronavirus as the cause of diseases classified elsewhere [facility] Forms: - Medication Reconciliation Form memo - SBAR form [facility] Signatures: Dispatcher [employer] EDJaxon Zimmerman MD MD cha Waters, Shelly, WORD PROCESSING MACHINE OPERATOR-C WORD PROCESSING MACHINE OPERATOR-Amiew Brandee Camp RN RN ss Germán Lopez, WORD PROCESSING MACHINE OPERATOR-C WORD PROCESSING MACHINE OPERATOR-Cla1 Moni Kiser RN RN lg3 Tarsha Sanders RN RN ha1 Corrections: (The following items were deleted from the chart) 05/10 20:26 19:42 to liver team formerly [facility] 20:52 20:26 to liver team formerly [facility] 21:01 20:52 to liver team formerly [facility] 05/11 02:36 00:41 FRESH FROZEN PLASMA+BB.LAB.BRZ ordered. EDDC EDMS 03:28 05/10 21:01 to liver team [facility]
--- NOTE | 2022-05-10 19:42 | ER ---
Nurse's Notes [facility] Name: Maria Fernanda Walker Age: 51 yrs Sex: Female : 1970 Arrival Date: 05/10/2022 Time: 18:47 Bed 4 Private MD: Diagnosis: Acute and subacute hepatic failure;Hepatic failure, unspecified without coma;Alcohol abuse;Anemia, unspecified;Elevated white blood cell count, unspecified;Hypo-osmolality and hyponatremia;Other acute kidney failure;Coronavirus infection, unspecified;SARS-associated coronavirus as the cause of diseases classified elsewhere Presentation: 05/10 18:58 Chief complaint: Parent and/or Guardian states: diarrhea that began a week ago. Family ss noticed that patient's skin was yellow 2 days ago. EMS reports that BP was reading low 80/40s, prehospital glucose normal. Pt reports that she drinks 2 boxes of wine daily. Pt appears jaundice. Coronavirus screen: Client denies travel out of the [place] in the last 14 days. Ebola Screen: Patient denies exposure to infectious person. Patient denies travel to an Ebola-affected area in the 21 days before illness onset. Initial Sepsis Screen: Does the patient have a suspected source of infection? No. Patient's initial sepsis screen is negative. Initial Sepsis Screen: Does the patient meet any 2 criteria? No. Patient's initial sepsis screen is negative. Risk Assessment: Do you want to hurt yourself or someone else? Patient reports no desire to harm self or others. Onset of symptoms is unknown. 18:58 Method Of Arrival: EMS: [facility] 18:58 Acuity: YONI 2 ss Historical: - Allergies: 19:02 PENICILLINS; ss 19:02 Codeine; ss - Home Meds: 19:02 losartan 50 mg oral tab 1 tab once daily [Active]; Cymbalta 60 mg oral cpDR 1 cap once ss daily [Active]; - PMHx: 19:02 Hypertensive disorder; Anxiety; ss - PSHx: 19:02 knee repair; ss - Social history:: Smoking status: unknown Patient uses alcohol, on a daily basis. Screenin:40 [facility] ED Fall Risk Assessment (Adult) History of falling in the last 3 months, lg3 including since admission No falls in past 3 months (0 pts). Abuse screen: Denies threats or abuse. Denies injuries from another. Nutritional screening: No deficits noted. Tuberculosis screening: No symptoms or risk factors identified. Assessment: 20:40 General: Appears in no apparent distress. comfortable, Behavior is calm, cooperative. lg3 Pain: Denies pain. Neuro: No deficits noted. Clifton Agitation-Sedation Scale (RASS): 0 - Alert and Calm Level of Consciousness is awake, alert, obeys commands, Oriented to person, place, time, situation, Speech is normal. Cardiovascular: No deficits noted. Denies chest pain, shortness of breath, Capillary refill < 3 seconds Clubbing of nail beds is absent JVD is absent Patient's skin is warm and dry. Respiratory: No deficits noted. Airway is patent Trachea midline Respiratory effort is even, unlabored, Respiratory pattern is regular, symmetrical, Denies cough, shortness of breath labored breathing. GI: Abdomen is round non-distended, Abd is soft X 4 quads Abd is non tender Reports diarrhea. : No deficits noted. No signs and/or symptoms were reported regarding the genitourinary system. Reports inability to void. EENT: Eyes yellow in color. Derm: Skin is intact, is healthy with good turgor, Skin is dry, Skin is jaundiced, Skin temperature is warm. Musculoskeletal: No deficits noted. No signs and/or symptoms reported regarding the musculoskeletal system. Circulation, motion, and sensation intact. Range of motion: intact in all extremities. 21:02 Reassessment: Patient and/or family updated on plan of care and expected duration. Pain ha1 level reassessed. Patient is alert, oriented x 3, equal unlabored respirations, skin warm/dry/pink. Patient denies pain at this time. 23:19 Reassessment: Patient appears in no apparent distress at this time. No changes from lg3 previously documented assessment. Patient and/or family updated on plan of care and expected duration. Pain level reassessed. Patient is alert, oriented x 3, equal unlabored respirations, skin warm/dry/pink. Patient denies pain at this time. 05/11 01:50 Reassessment: Patient appears in no apparent distress at this time. No changes from lg3 previously documented assessment. Patient and/or family updated on plan of care and expected duration. Pain level reassessed. Patient is alert, oriented x 3, equal unlabored respirations, skin warm/dry/pink. Patient denies pain at this time. 03:20 Reassessment:. General: Appears in no apparent distress. comfortable, Behavior is calm, lg3 cooperative. Pain: Denies pain. Neuro: No deficits noted. Clifton Agitation-Sedation Scale (RASS): 0 - Alert and Calm Level of Consciousness is awake, alert, obeys commands, Oriented to person, place, time, situation, Speech is normal. Cardiovascular: No deficits noted. Denies chest pain, shortness of breath. Respiratory: No deficits noted. Musculoskeletal: No deficits noted. Circulation, motion, and sensation intact. Range of motion: intact in all extremities. 03:23 General: blood transfusion continued upon transfer . lg3 Vital Signs: 05/10 18:58 BP 93 / 47; Pulse 102; Resp 18; Temp 97.8(O); Pulse Ox 100% on R/A; ss 20:40 BP 102 / 58; Pulse 105; Resp 15; Pulse Ox 98% on R/A; lg3 20:57 Weight 81.65 kg; mw2 21:02 BP 102 / 59; Pulse 104; Resp 19 S; Pulse Ox 98% on R/A; ha1 23:19 BP 98 / 46; Pulse 105; Resp 17 S; Pulse Ox 99% on R/A; lg3 23:55 BP 76 / 46; Pulse 106; Resp 17; Temp 97.8(O); Pulse Ox 97% on R/A; lg3 07 00:40 BP 86 / 41; Pulse 108; Resp 20; Pulse Ox 97% on R/A; lg3 01:40 BP 97 / 66; Pulse 108; Resp 19; Temp 97.7; Pulse Ox 99% on R/A; lg3 02:45 BP 80 / 38; Pulse 107; Resp 19; Pulse Ox 98% on R/A; lg3 03:15 BP 99 / 74; Pulse 106; Resp 19; Temp 97.6; Pulse Ox 97% on R/A; lg3 ED Course: 05/10 18:47 Patient arrived in ED. snw 19:02 Triage completed. ss 19:02 Arm band placed on right wrist. ss 19:04 Jaxon Elise MD is Attending Physician. memo 19:14 Loren Hines, RN is Primary Nurse. ld1 19:36 XRAY Chest (1 view) In Process Unspecified. EDMS 19:36 Foot Left 3 View XRAY In Process Unspecified. EDMS 20:16 Head C Spine Cap Wo Con In Process Unspecified. EDMS 20:28 initiated a transfer with Hardeep from [facility] [place]. mw2 20:32 Type And Screen Sent. lg3 20:32 SARS RAPID Sent. lg3 20:40 Patient has correct armband on for positive identification. Placed in gown. Bed in low lg3 position. Call light in reach. Side rails up X 1. Client placed on continuous cardiac and pulse oximetry monitoring. NIBP monitoring applied. security monitor on. Door closed. Noise minimized. Warm blanket given. Family accompanied patient. 20:40 Maintain EMS IV. Dressing intact. Good blood return noted. Site clean \T\ dry. Gauge \T\ lg 3 site: 20 R forearm. 20:49 Notified ED physician of a critical lab result(s). trop 65.1, tbili 13.5, cloride 84, bb Na 119. Dr Elise notified. 20:58 contacted Hardeep to inform him about the Covid result. mw2 21:29 [facility] denied due to capacity. mw2 21:33 initiated a transfer with Maral from [facility] Transfer [place]. mw2 21:40 initiated a transfer with Aleyda from [facility] [place]. mw2 21:48 [facility] denied due to capacity. mw2 22:01 Inserted saline lock: 22 gauge in left forearm, using aseptic technique. Blood oe collected. 22:13 [facility] denied due to capacity. mw2 22:24 initiated a transfer with Phong from [facility] Transfer [place]. mw2 22:[address] Elise with the GI Doctor from [facility]. mw2 22:[address] Elise with the Inspector Rag Sorting from [facility]. mw2 22:59 administrative approval given by Phong Gregg/ patient has been accepted to [address] to the ER/ Dr. Rodríguez accepted the patient in transfer/report to be called to [phone]. 07 01:50 Assisted provider with central line placement. Set up central line tray. Triple lumen lg3 line placed in right femoral. Line placed by Jaxon Elise MD Patient tolerated well. 01:55 Comprehensive Metabolic Panel Sent. lg3 01:55 CBC with Diff Sent. lg3 02:35 Packed RBCs (Additional Unit) Sent. lg3 03:26 Patient transferred, IV remains in place. intact, No redness/swelling at site. lg3 Administered Medications: 05/10 19:36 Drug: Banana Bag - (NS 0.9% 1000 ml, foLIC Acid 1 mg, Thiamine 100 mg, Multivitamin 1 lg3 amp) Route: IV; Rate: 100 calculated rate; Site: right forearm; 23:22 Follow up: IV Status: Infusion continued upon transfer; IV Intake: 300ml lg3 20:32 Drug: Thiamine 100 mg Route: IV; Rate: per protocol; Site: right forearm; lg3 20:34 Follow up: IV Status: Completed infusion lg3 20:32 Drug: ProTONIX (pantoprazole) 40 mg Route: IVP; Site: right forearm; lg3 20:44 Follow up: Response: No adverse reaction lg3 20:32 Drug: NS 0.9% 1000 ml Route: IV; Rate: 1 bolus; Site: right forearm; lg3 20:45 Follow up: IV Status: Completed infusion; IV Intake: 1000ml lg3 20:45 Drug: Rocephin (cefTRIAXone) 1 grams Route: IV; Rate: per protocol; Site: right forearm;ha1 23:22 Follow up: IV Status: Completed infusion lg3 20:55 Drug: Ativan (LORazepam) 2 mg Route: IVP; Site: right forearm; ha1 23:22 Follow up: Response: No adverse reaction; RASS: Alert and Calm (0) lg3 21:01 Drug: Vitamin K1 (phytonadione) 10 mg Route: Sub-Q; Site: abdomen; ha1 23:22 Follow up: Response: No adverse reaction lg3 05/11 02:00 Drug: Magnesium Sulfate 1 grams Route: IVPB; Infused Over: 1 hrs; Site: right femoral; lg3 02:52 Follow up: Response: No adverse reaction; IV Status: Completed infusion; IV Intake: lg3 100ml 02:36 Drug: Silvadene (silver sulfADIAZINE) Cream 1 % 1 application Route: Topical; Site: lg3 affected area; 02:45 Drug: Levophed (norepinephrine) 0.1 mcg/kg/min Route: IV; Rate: calculated rate; Site: lg3 right femoral; 02:49 Follow up: Rate change 10 ml/hr lg3 03:16 Follow up: IV Status: Infusion continued upon transfer lg3 Medication: 05/10 23:19 VIS not applicable for this client. lg3 Intake: 20:45 IV: 1000ml; Total: 1000ml. lg3 23:22 IV: 300ml; Total: 1300ml. lg3 05/11 02:52 IV: 100ml; Total: 1400ml. lg3 Outcome: 05/10 19:42 ER care complete, transfer ordered by . [facility] 05/11 03:26 Transferred by ground EMS Transfer form completed. lg3 Condition: stable Instructed on the need for transfer, Demonstrated understanding of instructions. 03:28 Patient left the ED. 3 Signatures: Dispatcher [employer] EDMS Jaxon Elise MD MD cha Waters, Shelly, DEVELOPMENT MECHANIC-C DEVELOPMENT MECHANIC-Csnw Sonia Escamilla, RN RN bb Brandee Camp RN RN ss Alexandro Hoffmann MyKena 2 Moni Kiser RN SRIKANTH 3 Loren Hines RN RN ld1 Tarsha Sanders RN RN ha1 Corrections: (The following items were deleted from the chart) 01:51 02 23:19 No provider procedures requiring assistance completed. lg3 [facility] 05/11 01:51 02 23:19 Patient transferred, IV remains in place. intact, No redness/swelling at [facility] site. 3 05/11 03:26 02 23:19 Transferred by ground EMS Transfer form completed. lg3 lg3 05/11 03:26 02 23:19 Condition: stable lg3 3 05/11 03:26 05/10 23:19 Instructed on the need for transfer, Demonstrated understanding of 3 instructions, lg3
--- NOTE | 2022-05-10 19:43 | RAD REPORT ---
EXAM DESCRIPTION: Karla Single View05/10/2022 7:34 pm CLINICAL HISTORY: Abdominal pain COMPARISON: none FINDINGS: The lungs appear clear of acute infiltrate. The heart is normal size IMPRESSION: No acute abnormalities displayed
--- NOTE | 2022-05-10 19:46 | RAD REPORT ---
EXAM DESCRIPTION: RAD - Foot Left 3 View - 05/10/2022 7:34 pm CLINICAL HISTORY: Left Foot pain FINDINGS: Curvilinear lucency is present within the proximal to mid aspect of the first distal phala nx. This may represent a prominent trabecula or nondisplaced fracture and should be correlated clinic ally No dislocation Large plantar calcaneal spur. Moderate posterior calcaneal spur
[2022-05-10 19:53] LABS: Absolute Lymphocytes (CBC) 3.6 K/uL (0.7-4.9); Hematocrit 19.3 % (36.0-45.0); Lymphocytes % 17.5 % (15.3-44.8); MCV 96.5 fL (80-100); MPV 9.9 fL (7.6-11.3)
[2022-05-10] MEDS ORDERED: PANTOPRAZOLE 40 MG INJ ONE (20:11)
[2022-05-10] MEDS ORDERED: SILVER SULFADIAZINE 1% 25 GM TOP ONE (20:11)
[2022-05-10 20:20] LABS: Protime INR 1.41
--- NOTE | 2022-05-10 20:35 | RAD REPORT ---
EXAM DESCRIPTION: CT - Head C Spine Cap Wo Con - 05/10/2022 8:15 pm CLINICAL HISTORY: Head and neck injury with chest and abdominal pain status post fall TECHNIQUE: Computed axial tomography of head, neck, chest, abdomen and pelvis obtained. IV and oral contrast not requested. Coronal and sagittal reconstruction performed. All CT scans are performed using dose optimization technique as appropriate and may include automated exposure control or mA/KV adjustment according to patient size. COMPARISON: None FINDINGS: An intracranial bleed is not seen. The ventricles are normal in caliber. An extra-axial fluid collection is not noted. . Fluid within the sinuses/mastoids is not seen. A cervical fracture is not seen. No dislocation is noted. The evaluation of mediastinum, brandon, vessels, solid organs and bowel are limited secondary to the lac k of contrast administration. A mediastinal hematoma is not noted. A pleural effusion is not seen. A lung contusion is not present. The liver,spleen, pancreas, adrenals,kidneys and bladder do not demonstrate an acute traumatic injury The liver is moderately enlarged with marked fatty infiltration. The stomach is compressed by the ga er. Schmorl node invagination into the superior vertebral endplate of L2 5 millimeter nodular opacity of abuts the right fissure IMPRESSION: No acute intracranial abnormality is seen. A cervical fracture is not visualized. If the patient continues have symptoms to suggest intracrania l/spinal cord pathology MRI be recommended No acute traumatic abnormality involving the chest/abdomen/pelvis. Moderate hepatomegaly with marked fatty infiltration 5 millimeter nodular opacity abuts the right fissure. It probably is benign. A followup CT chest in 6 months recommended
[2022-05-10 20:46] LABS: ALT/SGPT 71 U/L (13-56); AST/SGOT 144 U/L (15-37); Alkaline Phosphatase 408 U/L (45-117); BUN Blood Urea Nitrogen 33 mg/dL (7-18); Bicarbonate 19 mmol/L (21-32); Bilirubin Direct 11.2 mg/dL (0-0.2); Bilirubin Total 13.5 mg/dL (0.2-1.0); Glomerular Filtration Rate 15 ml/min (=/>90); Glucose Level 90 mg/dL (74-106); Magnesium 1.9 mg/dL (1.6-2.4); NT PRO-BNP 943 pg/mL (<125); Protein, Total 5.9 g/dL (6.4-8.2); Sodium Level 119 mmol/L (136-145)
[2022-05-10] MEDS ORDERED: LORazepam 2 MG/ML VIAL ONE (20:47)
[2022-05-10] MEDS ORDERED: CEFTRIAXONE 1000 MG/VIAL ONE (20:48)
[2022-05-10] MEDS ORDERED: NA CHLORIDE 0.9% 50 ML ONE (20:48)
[2022-05-10] MEDS ORDERED: VITAMIN K (ADULT) 10 MG/ML ONE (20:48)
[2022-05-10 20:49] LABS: Troponin High Sensitivity 65.1 pg/mL (<58.9)
[2022-05-10 20:58] LABS: SARS-CoV-2 Antigen Rapid Res Positive (Negative)
[2022-05-10 21:16] LABS: Anisocytosis 1+; Blood Morphology Comment NOTED (NOT SEEN); Platelet Estimate ADEQ; Poikilocytosis 1+
[2022-05-10] MEDS ORDERED: NA CHLORIDE 0.9% 500 ML ONE (21:35)
[2022-05-11] MEDS ORDERED: NA CHLORIDE 0.9% 500 ML ONE (01:39)
[2022-05-11] MEDS ORDERED: MAGNESIUM SULFATE 1 gm IVPB 1 GM/100 ML BAG IV ONE (02:00)
[2022-05-11 02:21] LABS: Hematocrit 21.5 % (36.0-45.0); MCV 93.5 fL (80-100); MPV 8.5 fL (7.6-11.3)
[2022-05-11 02:36] LABS: Albumin 1.9 g/dL (3.4-5.0); Bilirubin Total 12.5 mg/dL (0.2-1.0); Potassium 4.7 mmol/L (3.5-5.1); Protein, Total 5.5 g/dL (6.4-8.2)
[2022-05-11] MEDS ORDERED: NOREPINEPHRINE BITARTRATE/D5W 4 MG/250 ML BAG IV ONE (02:46)
[2022-05-11 03:46] LABS: Blood Morphology Comment NOT SEEN (NOT SEEN); Platelet Estimate ADEQ
[2022-05-11 04:40] VITALS: BP 99/74; TEMP 97.6; O2SAT 97
== END 2022-05-11 03:28 | disposition short-term general hospital (02) ==
LOC: ER 18:46
PROC: 06HM33Z Insertion of Infusion Device into Right Femoral Vein, Percutaneous Approach (ICD-10-PCS; principal; 2022-05-11)
DX: K72.00 Acute and subacute hepatic failure without coma (principal); N17.9 Acute kidney failure, unspecified; U07.1 COVID-19; F10.10 Alcohol abuse, uncomplicated; D64.9 Anemia, unspecified; E87.1 Hypo-osmolality and hyponatremia; D72.829 Elevated white blood cell count, unspecified; I10 Essential (primary) hypertension; F41.9 Anxiety disorder, unspecified; Z88.0 Allergy status to penicillin; Z88.5 Allergy status to narcotic agent
CPT/HCPCS: 93005; 87040 ×2; 85025 ×2; 80048; 36415; 82140; 86900; 83735; 86850; 85610; 86901; 80076; 83605; 84484; 83690; 80053; 83880; 83930; 70450; 71250; 72125; 71045; 73630; 87811; 36556; J3411 ×2; J3430; C9113; J3475; P9016 ×2; J7040 ×2; J7030 ×3; G0480 ×3

== ENCOUNTER 2022-06-09 22:47 | Emergency (ER) | payer BC ==
--- OUTSIDE RECORDS SUMMARY | 2022-06-09 22:57 | XMS REPORT | Continuity of Care Document ---
:1970 Author Organization [facility] t Address [address] [place] [address] [address] [place] [address] Care Team Providers Name Role Phone PCP, PATIENT DOES NOT HAVE A Primary Care Physician Unavaila SHABANA Nayak Attending Clinician Unavailable SHABANA SAENZ Attending Clinician Unavailable SHENA RAZA Attending Clinician Unavailable Xena Govea Attending Clinician Unavailable Josesito DUKE, Sri Attending Clinician Unavailable Tania Manzano Attending Clinician [phone] Doctor Unassigned, [place] Attending Clinician Unavailable Maya Chin Attending Clinician Unavailable HANNY LANGE Attending Clinician Unavailable RAVINDRA SO Attending Clinician Unavail able Joanna Shook MD, Ravindra Lares Attending Clinician [phone] Claribel OCONNOR, Kennedy Newton Attending Clinician Ramón OCONNOR, Cecy Quintana Attending Clinician Dk OCONNOR, Kelly Prado Attending Clinician Nazario OCONNOR, Hanny Chiang Attending Clinician Trinidad OCONNOR, Haim Attending Clinician Sheikh ELVIN, Verenice Melgar Attending Clinician Edmund Palma MD Attending Clinician Oscar Hinton CRNA Attending Clinician VERENICE JOHNSON Attending Clinician Unavailable Allie Ng MD Attending Clinician Trish Jimenez Attending Clinician Unavailable Brannon Cruz Attending Clinician Unavailable MEGAN LIND Attending Clinician Unavailable Tiarra Attending Clinician Unavailable Remberto Ulrich MD Attending Clinician Unavailable Lab, Ang - Db Attending Clinician Unavailable Megan Lind MD Attending Clinician REMBERTO ULRICH Attending Clinician Unavailable Mary Ashraf MA Attending Clinician Unavailable Juany Rubin MA Attending Clinician Unavailable HAIM FELICIANO Admitting Clinician Unavailable Brannon Cruz Admitting Clinician Unavailable UNDEFINED Admitting Clinician Unavailable Tiarra Admitting Clinician Unavailable Payers Payer Name Policy Type Policy Number Effective Date Expiration Date S ource [employer] [place] [id number] 2020 00:00:00 BCBS PPO POS EPO [id number] 2020 00:00:00 CHOICE PPO/EPO - BCBS [id number] [place] [id number] [place] [id number] 2020 00:00:00 [place] Problems Condition Condition Condition Status Onset Resolution Last Treating Co mments Source Name Details Category Date Date Treatment Clinician Date Negative Negative Disease [facility] serology [facility]: Medica l 00 [place] Septic Septic Disease Active [facility] shock shock 2-10 [facility] 00:00: Medical 00 [place] Acute Acute Disease Active [facility] 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 [facility] hepatitis hepatitis 00[facility]00: [facility] brayden 00 Center JUAN PABLO (acute JUAN PABLO (acute Disease Active [facility] kidney kidney 2-10 [facility] injury) injury) 00:00: Medical 00 [place] Hyponatrem Hyponatrem Disease Active [facility] ia ia 2-10 [facility] 00:[facility] Medical 00 Center Other Other Disease Active [facility] specified specified 2-10 [facility] anemias anemias 00:00: Medical 00 Center Acute Acute Disease Active [facility] metabolic metabolic 2-10 [facility] encephalop encephalop 00:00: Me dical athy athy 00 Center Hepatitis Hepatitis Disease Active [facility] 2[facility]09 [facility] 00:[facility]: Medical 00 Center Menopausal Menopausal Disease Active U nivers and female and female 1-16 it y of climacteri [place]acter[place] 00 Medica l Branch Overweight Overweight Disease Active U nivers (BMI (BMI 1-16 ity of 25.0-29.9) 25.0-29.9) [place] Well woman Well woman Disease Active U nivers exam with exam with 7-27 ity of routine routine 00:00: [place] gynecologi gynecologi 00 Me dical brayden exam brayden exam Branch Hypertensi Hypertensi Disease Active Overview : Univers on on 08-14 Formatt[place] ity of 00:00: g of this [place] [address] note Medical might be Branch different from [...] 15 minutes spent with this telemed visit. Decompensa Decompensa Disease Active [facility] amanda Reyan hepatic hepatic Medical cirrhosis cirrhosis Cent er Allergies, Adverse Reactions, Alerts Allergy Allergy Status Severity Reaction(s) Onset Inactive Treating Comm ents Source Name Type Date Date Clinician Penicill DA Active SV [facility]ES/ [facility] TH[facility] 05-11 [place] CLOSING 00:00: Health [address] codeine DA Active SV HIVEES [facility] 2- [place] 00[facility]00: Health 00 are [facility] st Codeine Drug Active Hives [facility] Allergy 2-06 [facility] 00:00: Medical 00 [place] CODEINE Allergy Active High Hives 2023-[address] [facility] [facility] 2-06 [facility] 00[facility]00: Medical 00 Center Hydrocod Drug Active Severe Other [facility] one Allergy 7 reaction( [facility] 00:00: s): Medical 00 Unknown - Center See comments Penicill Drug Active Hives, Rash Other [facility] ins Allergy 7 reaction( [facility] 00:00: s): Medical 00 HIVES/ Center THROAT CLOSING Hydrocod Propensi Active Unknown - Uni vers one ty to See comments 7 ity of adverse 00:00: [place] reaction 00 Medical s to Branch drug Penicill Propensi Active Rash Univer s ins ty to 7 ity of adverse 00:00: [place] reaction 00 Medical s Branch PENICILL Drug Active High Rash Univers INS Class 7- ity of 00:00: [place] 00 Medical Branch HYDROCOD DRUG Active High Unknown-Cmnt Un brittany ONE INGREDI 7- ity of 00:00: [place] 00 Medical Branch Penicill Propensi Active Rash Univer s ins ty to 7 ity of adverse 00:00: [place] reaction 00 Medical s Branch Penicill Propensi Active Rash 0 Univer s ins ty to 7 ity of adverse 00:00: [place] reaction 00 Medical s Branch HYDROCOD Allergy Active High 2020- [facility] ONE 7 [facility] 00:[facility]: Medical 00 Center PENICILL Allergy Active High Hives [facility] INS 7 [facility] 00:[facility]: Medical 00 Center NO KNOWN Drug Active Univers ALLERGIE Class ity of S [facility] [place] [facility] Hydrocod Allergy Active [facility] one to [facility] e PENICILL Allergy Active [facility] INS to Orthope substanc dic e Sports Medicin e Social History Social Habit Start Date Stop Date Quantity Comments Source History SDOH [facility] Alcohol Frequency Medical Center History SDOH [facility] Alcohol Std Drinks Medica l Center History SDOH [facility] Alcohol Binge Medical Jai ter History SDOH [facility] Transport Non-Med Medical Center Alcohol intake 2022-05-25 2022-05-25 [facility]er [facility]00 of alcohol Medical Center (finding) Exposure to 2022-05-04 2022-05-[address] [facility] SARS-CoV-2 (event) 00:00:00 05:25:00 Medica l Center Tobacco use and 2022-05-14 2022-05-[address] [facility] exposure 00:00:00 00:00:00 Medical Center History [facility] 2022-05-14 2022-05-14 [address] [facility] Alcohol Comment 00:00:00 00:00:00 per pt. Medical C enter History [facility] 2022-05-14 2022-05-[address] [facility] Transport Med 00:00:00 00:00:[address] History [facility] 2022-05-14 2022-05-[address] [facility] Housing Unable to 00:00:00 00:00:00 Medical Center Pay History [facility] 2022-05-14 2022-05-[address] [facility] Housing Places 00:00:00 00:00:00 Medical Ce nter Lived History [facility] 2022-05-14 2022-05-[address] [facility] Housing Homeless 00:00:00 00:00:00 Medical Center Last Year Sex Assigned At [birth year] [facility] 00:00:00 00:00:00 Medical Center Smoking Status Start Date Stop Date Source Former smoker 2022-05-14 00:00:00 2022-05-14 00:00:[address] [facility] Never smoked tobacco [facility] Medications Ordered Filled Start Stop Current Ordering Indication Dosage Frequency Signature Comments Components Source Medication Medication Date Date Medication? Clinician (SIG) Name Name rifAXIMin Yes Hepatic 550mg Q.5D Take [address] (Xifaxan) 06-08 encephalopa tablet L ukes 550 mg Tab 00:00: thy (550 mg Medi brayden 00 total) by Center mouth 2 (two) times daily. magnesium 2023- Yes Low 400mg Q.[id number] Take [address] oxide 06-08 03-06 magnesium [id number] tablet [facility] (MAG-OX) 00:00: 23:59 level 3D (400 mg Medi brayden 400 mg 00 :00 total) by Center (241.3 mg mouth 3 magnesium) (three) tablet times daily. ergocalcife 2022- No [id number] Q7D Take [address] rol - 03-07 capsule [facility] (ERGOCALCIF 00:00: 00:00 (50,000 Me dical MIESHA) 1,250 00 :00 Units Center mcg (50,000 total) by unit) mouth once capsule a week. famotidine Yes 20mg QD Take 1 [facility] (PEPCID) 20 2-21 tablet (20 [facility] MG tablet 00:00: mg total) Med ical 00 by mouth Center daily. folic acid 2023- Yes 1mg QD Take [address] (FOLVITE) 1 -25 05- tablet (1 [facility] MG tablet 00:00: 23:59 mg total) Me dical 00 :00 by mouth Center daily. levothyroxi 2023- Yes 50ug Take [address] [facility] [facility] ne -25 05- tablet (50 [facility] (SYNTHROID, 00:00: 23:59 mcg total) Medical LEVOTHROID) 00 :00 by mouth Cent er 50 MCG Every tablet morning on an empty stomach. multivitami 2023- Yes 1{tbl} QD Take [address] n -25 05- tablet by [facility] (THERAGRAN) 00:00: 23:59 mouth Medi brayden tablet 00 :00 daily. [place] spironolact 2023- Yes 25mg QD Take [address] [facility] one 2-25 05- tablet (25 [facility] (ALDACTONE) 00:00: 23:59 mg total) Medical 25 MG 00 :00 by mouth Center tablet daily. thiamine 2023- Yes 100mg QD Take 1 [facility] 100 MG -25 05- tablet [facility] tablet 00:00: 23:59 (100 mg Medical 00 :00 total) by Center mouth daily. losartan Yes Take by [facility] potassium 2-20 mouth Dose Luke s (LOSARTAN 22:57: not known Med ical ORAL) 33 . [place] duloxetine Yes Take by [facility] HCl 2-20 mouth Dose [facility] (CYMBALTA 22:57: not known Med ical ORAL) 33 . [place] MELOXICAM 2022- No Take by [facility] ORAL 2-20 02-20 mouth [facility] 12:14: 00:00 Taking Medical 22 :00 daily Center prior to admission, unknown frequency or dose . lactulose 0 Yes 20g Q.[id number] Take [address] (CHRONULAC) 2-20 [id number] mLs (20 g [facility] 20 gram/30 00:00: 3D total) by Me dical mL solution 00 mouth 3 Cente r (three) times daily. pantoprazol 0 Yes 40mg Q.5D Take [address] [facility] e 2-20 tablet (40 [facility] (PROTONIX) 00:00: mg total) Me dical 40 MG 00 by mouth 2 Center tablet (two) times daily. pantoprazol 0 Yes 40mg Q.5D Take [address] [facility] e 2-20 tablet (40 [facility] (PROTONIX) 00:00: mg total) Me dical 40 MG 00 by mouth 2 Center tablet (two) times daily. furosemide 0 2023- Yes 20mg QD Take [address] (LASIX) 20 2-20 02-20 tablet (20 [facility] MG tablet 00:00: 23:59 mg total) Me dical 00 :00 by mouth Center daily. cholestyram 0 2023- Yes 1{packe Q.5D Take [address] [facility] ine 2-20 02-20 t} packet by [facility] (QUESTRAN) 00:00: 23:59 mouth 2 Med ical 4 gram PwPk 00 :00 (two) Center packet times daily. midodrine 2022- Yes 5mg Take 1 [facility] (PROAMATINE 2-20 -22 tablet (5 [facility] ) 5 MG 00:00: 23:59 mg total) Medic al tablet 00 :00 by mouth 2 Center (two) times daily before meals for 30 days. furosemide 0 2022- No 20mg QD Take [address] (LASIX) 20 2-20 02-20 tablet (20 [facility] MG tablet 00:00: 00:00 mg total) Me dical 00 :00 by mouth Center daily. losartan 0 Yes Take by [facility] potassium 2-11 mouth Dose Luke s (LOSARTAN 14:53: not known Med ical ORAL) 12 . Center duloxetine 0 Yes Take by [facility] HCl 2-11 mouth Dose [facility] (CYMBALTA 14:53: not known Med ical ORAL) 12 . Center MELOXICAM Yes Take by [facility] ORAL 2-11 mouth [facility] 14:53: Taking Medical 12 daily Center prior to admission, unknown frequency or dose . losartan Yes Take by [facility] St potassium 2-11 mouth Dose Luke s (LOSARTAN 14:53: not known Med ical ORAL) 12 . Center duloxetine Yes Take by [facility] St HCl 2-11 mouth Dose [facility] (CYMBALTA 14:53: not known Med ical ORAL) 12 . Center MELOXICAM Yes Take by [facility] S t ORAL 2-11 mouth [facility]ukes 14:53: Taking Medical 12 daily Center prior to admission, unknown frequency or dose . estradioL Yes [id number] 2g Insert 2 g Univers (ESTRACE) 1-04 into ity of 0.01 % (0.1 00:00: [place] mg/gram[place] 00 weekly. Medical vaginal Branch cream estradioL Yes [id number] 2g Insert 2 g Univers (ESTRACE) 1-04 into ity of 0.01 % (0.1 00:00: [place] mg/gram) 00 weekly. Medical vaginal Branch cream estradioL Yes [id number] 2g Insert 2 g Univers (ESTRACE) 1-04 into ity of 0.01 % (0.1 00:00: [place] mg/gram) 00 weekly. Medical vaginal Branch cream NUVARING Yes [id number] INSERT 1 Univers 0.12-0.015 7-11 RING ity of mg/24 hr 00:00: [place] vaginal 00 1 TIME Medical insert EVERY Branch MONTH. LEAVE IN PLACE FOR 3 CONSECUTIV E WEEKS, THEN REMOVE FOR 1 WEEK NUVARING Yes [id number] INSERT 1 Univers 0.12-0.015 7-11 RING ity of mg/24 hr 00:00: [place] vaginal 00 1 TIME Medical insert EVERY Branch MONTH. LEAVE IN PLACE FOR 3 CONSECUTIV E WEEKS, THEN REMOVE FOR 1 WEEK NUVARING Yes [id number] INSERT 1 Univers 0.12-0.015 7-11 RING ity of mg/24 hr 00:00: [place]ALLY [place] vaginal 00 1 TIME Medical insert EVERY Branch MONTH. LEAVE IN PLACE FOR 3 CONSECUTIV E WEEKS, THEN REMOVE FOR 1 WEEK NUVARING Yes [id number] INSERT 1 Univers 0.12-0.015 7-11 RING ity of mg/24 hr 00:00: [place]ALLY [place] vaginal 00 1 TIME Medical insert EVERY Branch MONTH. LEAVE IN PLACE FOR 3 CONSECUTIV E WEEKS, THEN REMOVE FOR 1 WEEK NUVARING Yes [id number] INSERT 1 Univers 0.12-0.015 7-11 RING ity of mg/24 hr 00:00: [place]AG[place]ALLY [place] vaginal 00 1 TIME Medical insert EVERY Branch MONTH. LEAVE IN PLACE FOR 3 CONSECUTIV E WEEKS, THEN REMOVE FOR 1 WEEK NUVARING Yes [id number] INSERT 1 Univers 0.12-0.015 7-11 RING ity of mg/24 hr 00:00: [place]AG[place]ALLY [place] vaginal 00 1 TIME Medical insert EVERY Branch MONTH. LEAVE IN PLACE FOR 3 CONSECUTIV E WEEKS, THEN REMOVE FOR 1 WEEK NUVARING Yes [id number] INSERT 1 Univers 0.12-0.015 7-11 RING ity of mg/24 hr 00:00: VAGINALLY [place] vaginal 00 1 TIME Medical insert EVERY Branch MONTH. LEAVE IN PLACE FOR 3 CONSECUTIV E WEEKS, THEN REMOVE FOR 1 WEEK NUVARING Yes [id number] INSERT 1 Univers 0.12-0.015 7-11 RING ity of mg/24 hr 00:00: [place]AG[place]ALLY [place] vaginal 00 1 TIME Medical insert EVERY Branch MONTH. LEAVE IN PLACE FOR 3 CONSECUTIV E WEEKS, THEN REMOVE FOR 1 WEEK NUVARING Yes [id number] INSERT 1 Univers 0.12-0.015 7-11 RING ity of mg/24 hr 00:00: [place]AG[place]ALLY [place] vaginal 00 1 TIME Medical insert EVERY Branch MONTH. LEAVE IN PLACE FOR 3 CONSECUTIV E WEEKS, THEN REMOVE FOR 1 WEEK NUVARING Yes [id number] INSERT 1 Univers 0.12-0.015 7-11 RING ity of mg/24 hr 00:00: [place]AG[place]ALLY [place] vaginal 00 1 TIME Medical insert EVERY Branch MONTH. LEAVE IN PLACE FOR 3 CONSECUTIV E WEEKS, THEN REMOVE FOR 1 WEEK NUVARING Yes [id number] INSERT 1 Univers 0.12-0.015 7-11 RING ity of mg/24 hr 00:00: [place]AG[place]ALLY [place] vaginal 00 1 TIME Medical insert EVERY Branch MONTH. LEAVE IN PLACE FOR 3 CONSECUTIV E WEEKS, THEN REMOVE FOR 1 WEEK NUVARING Yes [id number] INSERT 1 Univers 0.12-0.015 7-11 RING ity of mg/24 hr 00:00: [place]AG[place]ALLY [place] vaginal 00 1 TIME Medical insert EVERY Branch MONTH. LEAVE IN PLACE FOR 3 CONSECUTIV E WEEKS, THEN REMOVE FOR 1 WEEK NUVARING Yes [id number] INSERT 1 Univers 0.12-0.015 7-11 RING ity of mg/24 hr 00:00: VAG[place]ALLY [place] vaginal 00 1 TIME Medical insert EVERY Branch MONTH. LEAVE IN PLACE FOR 3 CONSECUTIV E WEEKS, THEN REMOVE FOR 1 WEEK NUVARING Yes [id number] INSERT 1 Univers 0.12-0.015 7-11 RING ity of mg/24 hr 00:00: VAG[place]ALLY [place] vaginal 00 1 TIME Medical insert EVERY Branch MONTH. LEAVE IN PLACE FOR 3 CONSECUTIV E WEEKS, THEN REMOVE FOR 1 WEEK NUVARING Yes [id number] INSERT 1 Univers 0.12-0.015 7-11 RING ity of mg/24 hr 00:00: VAGINALLY [place] vaginal 00 1 TIME Medical insert EVERY Branch MONTH. LEAVE IN PLACE FOR 3 CONSECUTIV E WEEKS, THEN REMOVE FOR 1 WEEK NUVARING Yes [id number] INSERT 1 Univers 0.12-0.015 7-11 RING ity of mg/24 hr 00:00: VAGINALLY [place] vaginal 00 1 TIME Medical insert EVERY Branch MONTH. LEAVE IN PLACE FOR 3 CONSECUTIV E WEEKS, THEN REMOVE FOR 1 WEEK famotidine Yes Univers 40 mg 7-06 ity of tablet 00:00: [place] 00 [facility] Branch famotidine Yes Univers 40 mg 7-06 ity of tablet 00:00: [facility] Branch famotidine 0 2021- No Univer s 40 mg 7- 09-27 ity of tablet 00:00: 00:00 [place] 00 :00 Medical Branch famotidine 2022-0 2022- No Univer s 40 mg 10-07 ity of tablet 00:00: 00:00 [place] 00 :00 Medical Branch DULOXETINE 2-0 Yes [id number] 20mg TAKE 1 U nivers 20 mg 6-06 CAPSULE BY ity of capsule 00:00: MOUTH [place] 00 DAILY Medical Branch DULOXETINE 2-0 Yes [id number] 20mg TAKE 1 U nivers 20 mg 6-06 CAPSULE BY ity of capsule 00:00: MOUTH [place] 00 DAILY Medical Branch DULOXETINE 2-0 Yes [id number] 20mg TAKE 1 U nivers 20 mg 6-06 CAPSULE BY ity of capsule 00:00: MOUTH [place] 00 DAILY Medical Branch DULOXETINE 2021-0 Yes [id number] 20mg TAKE 1 U nivers 20 mg 6-06 CAPSULE BY ity of capsule 00:00: MOUTH [place] 00 DAILY Medical Branch DULOXETINE 2-0 Yes [id number] 20mg TAKE 1 U nivers 20 mg 6-06 CAPSULE BY ity of capsule 00:00: MOUTH [place] 00 DAILY Medical Branch DULOXETINE 2021-0 2022- No [id number] 20mg TAKE 1 Univers 20 mg 612-29 CAPSULE BY ity of capsule 00:00: 00:00 [facility] 00 :00 DAILY Medical Branch DULOXETINE 2021-0 2- No [id number] 20mg TAKE 1 Univers 20 mg -09 10- CAPSULE BY ity of capsule 00:00: 00:00 [facility] 00 :00 DAILY Medical Branch montelukast 2021-0 Yes 10mg Take 10 mg Univers 10 mg 5-04 by mouth ity of tablet 00:00: in the [place] 00 morning. Medical Branch predniSONE 2021-0 Yes TAKE 3 Unive rs 20 mg 5-04 TABLETS BY ity of tablet 00:00: MOUTH [place] [address] EVERY DAY Medical FOR 3 DAYS Branch THEN TAKE 2 TABLETS BY MOUTH EVERY DAY FOR 3 DAYS THEN TAKE 1 TABLET BY MOUTH EVERY DAY FOR 3 DAYS montelukast 2021-0 Yes 10mg Take 10 mg Univers 10 mg 5-04 by mouth ity of tablet 00:00: in the [place] 00 morning. Medical Branch predniSONE 2021-0 Yes TAKE 3 Unive rs 20 mg 5-04 TABLETS BY ity of tablet 00:00: MOUTH [place] [address] EVERY DAY Medical FOR 3 DAYS Branch THEN TAKE 2 TABLETS BY MOUTH EVERY DAY FOR 3 DAYS THEN TAKE 1 TABLET BY MOUTH EVERY DAY FOR 3 DAYS montelukast 2021- No 10mg Take 10 mg Univers 10 mg 08-05 by mouth ity of tablet 00:00: 00:00 in the [place] 00 :00 morning. Medical Branch predniSONE 2021- No TAKE 3 Univ ers 20 mg 08-05 TABLETS BY ity of tablet 00:00: 00:00 MOUTH [place] 00 :00 EVERY DAY Medical FOR 3 DAYS Branch THEN TAKE 2 TABLETS BY MOUTH EVERY DAY FOR 3 DAYS THEN TAKE 1 TABLET BY MOUTH EVERY DAY FOR 3 DAYS montelukast 2021- No 10mg Take 10 mg Univers 10 mg 08-05 by mouth ity of tablet 00:00: 00:00 in the [place] 00 :00 morning. Medical Branch predniSONE 2021- No TAKE 3 Univ ers 20 mg 08-05 TABLETS BY ity of tablet 00:00: 00:00 MOUTH [place] 00 :00 EVERY DAY Medical FOR 3 DAYS Branch THEN TAKE 2 TABLETS BY MOUTH EVERY DAY FOR 3 DAYS THEN TAKE 1 TABLET BY MOUTH EVERY DAY FOR 3 DAYS DULoxetine Yes [id number] 30mg Take 1 U nivers (CYMBALTA) 7-27 capsule by ity of 30 mg 00:00: mouth [place] capsule 00 daily. Medical Branch DULoxetine Yes [id number] 30mg Take 1 U nivers (CYMBALTA) 7-27 capsule by ity of 30 mg 00:00: mouth [place] capsule 00 daily. Medical Branch DULoxetine Yes [id number] 30mg Take 1 U nivers (CYMBALTA) 7-27 capsule by ity of 30 mg 00:00: mouth [place] capsule 00 daily. Medical Branch DULoxetine Yes [id number] 30mg Take 1 U nivers (CYMBALTA) 7-27 capsule by ity of 30 mg 00:00: mouth [place] capsule 00 daily. Medical Branch DULoxetine Yes [id number] 30mg Take 1 U nivers (CYMBALTA) 7-27 capsule by ity of 30 mg 00:00: mouth [place] capsule 00 daily. Medical Branch DULoxetine Yes [id number] 30mg Take 1 U nivers (CYMBALTA) 7-27 capsule by ity of 30 mg 00:00: mouth [place] capsule 00 daily. Medical Branch DULoxetine Yes [id number] 30mg Take 1 U nivers (CYMBALTA) 7-27 capsule by ity of 30 mg 00:00: mouth [place] capsule 00 daily. Medical Branch DULoxetine Yes [id number] 30mg Take 1 U nivers (CYMBALTA) 7-27 capsule by ity of 30 mg 00:00: mouth [place] capsule 00 daily. Medical Branch DULoxetine Yes [id number] 30mg Take 1 U nivers (CYMBALTA) 7-27 capsule by ity of 30 mg 00:00: mouth [place] capsule 00 daily. Medical Branch DULoxetine Yes [id number] 30mg Take 1 U nivers (CYMBALTA) 7-27 capsule by ity of 30 mg 00:00: mouth [place] capsule 00 daily. Medical Branch DULoxetine Yes [id number] 30mg Take 1 U nivers (CYMBALTA) 7-27 capsule by ity of 30 mg 00:00: mouth [place] capsule 00 daily. Medical Branch DULoxetine Yes [id number] 30mg Take 1 U nivers (CYMBALTA) 7-27 capsule by ity of 30 mg 00:00: mouth [place] capsule 00 daily. Medical Branch DULoxetine Yes [id number] 30mg Take 1 U nivers (CYMBALTA) 7-27 capsule by ity of 30 mg 00:00: mouth [place] capsule 00 daily. Medical Branch NUVARING Yes [id number] 1{each} Insert 1 Univers (NUVARING) 7-27 Each into ity of 0.12-0.015 00:00: vagina [place] mg/24 hr 00 once every Medic al vaginal month. Branch insert Insert vaginally and leave in place for 3 consecutiv e weeks, then remove for 1 week. DULoxetine Yes [id number] 30mg Take 1 U nivers (CYMBALTA) 7-27 capsule by ity of 30 mg 00:00: mouth [place] capsule 00 daily. Medical Branch DULoxetine Yes [id number] 20mg Take 1 U nivers (CYMBALTA) 7-27 capsule by ity of 20 mg 00:00: mouth [place] capsule 00 daily. Medical Branch NUVARING 2021-0 Yes [id number] 1{each} Insert 1 Univers (NUVARING) 7-27 Each into ity of 0.12-0.015 00:00: vagina [place] mg/24 hr 00 once every Medic al vaginal month. Branch insert Insert vaginally and leave in place for 3 consecutiv e weeks, then remove for 1 week. DULoxetine 2020-0 Yes [id number] 30mg Take 1 U nivers (CYMBALTA) 7-27 capsule by ity of 30 mg 00:00: mouth [place] capsule 00 daily. Medical Branch DULoxetine 2020-0 Yes [id number] 20mg Take 1 U nivers (CYMBALTA) 7-27 capsule by ity of 20 mg 00:00: mouth [place] capsule 00 daily. Medical Branch NUVARING 0 Yes [id number] 1{each} Insert 1 Univers (NUVARING) 7-27 Each into ity of 0.12-0.015 00:00: vagina [place] mg/24 hr 00 once every Medic al vaginal month. Branch insert Insert vaginally and leave in place for 3 consecutiv e weeks, then remove for 1 week. DULoxetine 2020-0 Yes [id number] 30mg Take 1 U nivers (CYMBALTA) 7-27 capsule by ity of 30 mg 00:00: mouth [place] capsule 00 daily. Medical Branch DULoxetine 0 Yes [id number] 20mg Take 1 U nivers (CYMBALTA) 7-27 capsule by ity of 20 mg 00:00: mouth [place] capsule 00 daily. Medical Branch NUVARING 2020-0 Yes [id number] 1{each} Insert 1 Univers (NUVARING) 7-27 Each into ity of 0.12-0.015 00:00: vagina [place] mg/24 hr 00 once every Medic al vaginal month. Branch insert Insert vaginally and leave in place for 3 consecutiv e weeks, then remove for 1 week. DULoxetine 2020-0 Yes [id number] 30mg Take 1 U nivers (CYMBALTA) 7-27 capsule by ity of 30 mg 00:00: mouth [place] capsule 00 daily. Medical Branch DULoxetine 2020-0 Yes [id number] 20mg Take 1 U nivers (CYMBALTA) 7-27 capsule by ity of 20 mg 00:00: mouth [place] capsule 00 daily. Medical Branch NUVARING Yes [id number] 1{each} Insert 1 Univers (NUVARING) - Each into ity of 0.12-0.015 00:00: vagina [place] mg/24 hr 00 once every Medic al vaginal month. Branch insert Insert vaginally and leave in place for 3 consecutiv e weeks, then remove for 1 week. DULoxetine Yes [id number] 30mg Take 1 U nivers (CYMBALTA) 10-28 capsule by ity of 30 mg 00:00: mouth [place] capsule 00 daily. Medical Branch DULoxetine Yes [id number] 30mg Take 1 U nivers (CYMBALTA) 7-27 capsule by ity of 30 mg 00:00: mouth [place] capsule 00 daily. Medical Branch DULoxetine Yes [id number] 30mg Take 1 U nivers (CYMBALTA) 7- capsule by ity of 30 mg 00:00: mouth [place] capsule 00 daily. Medical Branch DULoxetine Yes [id number] 30mg Take 1 U nivers (CYMBALTA) 7-27 capsule by ity of 30 mg 00:00: mouth [place] capsule 00 daily. Medical Branch NUVARING 2021- No [id number] 1{each} Insert 1 Univers (NUVARING) 10-28 07-11 Each into ity of 0.12-0.015 00:00: 00:00 [place] mg/24 hr 00 :00 once every Medic al vaginal month. Branch insert Insert vaginally and leave in place for 3 consecutiv e weeks, then remove for 1 week. DULoxetine 2021- No [id number] 20mg Take 1 Univers (CYMBALTA) 10-28 06-06 capsule by it y of 20 mg 00:00: 00:00 mouth [place] capsule 00 :00 daily. Medical Branch losartan 50 2020-0 Yes Univer s mg tablet 7-22 ity of 00:00: [place] 00 Medical Branch losartan 50 2020-0 Yes Univer s mg tablet 7-22 ity of 00:00: [place] 00 Medical Branch losartan 50 2020-0 Yes Univer s mg tablet 7-22 ity of 00:00: [place] 00 Medical Branch losartan 50 2020-0 Yes Univer s mg tablet 7-22 ity of 00:00: [place] [facility] losartan 50 1-0 Yes Univer s mg tablet 10-23 ity of 00:00: [place] [facility] losartan 50 1-0 Yes Univer s mg tablet 10-23 ity of 00:00: [place] [facility] losartan 50 1-0 Yes Univer s mg tablet 10-23 ity of 00:00: [place] [facility] losartan 50 1-0 Yes Univer s mg tablet 10-23 ity of 00:00: [place] [facility] losartan 50 1-0 Yes Univer s mg tablet 10-23 ity of 00:00: [place] [facility] losartan 50 1-0 Yes Univer s mg tablet 10-23 ity of 00:00: [place] [facility] losartan 50 1-0 Yes Univer s mg tablet 10-23 ity of 00:00: [place] [facility] losartan 50 1-0 Yes Univer s mg tablet 10-23 ity of 00:00: [place] [facility] losartan 50 1-0 Yes Univer s mg tablet 10-23 ity of 00:00: [place] [facility] losartan 50 1-0 Yes Univer s mg tablet 10-23 ity of 00:00: [place] [facility] losartan 50 1-0 Yes Univer s mg tablet 10-23 ity of 00:00: [place] [facility] losartan 50 1-0 Yes Univer s mg tablet 10-23 ity of 00:00: [place] [facility] losartan 50 2021-0 Yes Univer s mg tablet 10-23 ity of 00:00: [place] [facility] losartan 50 1-0 Yes Univer s mg tablet 10-23 ity of 00:00: [place] [facility] losartan 50 1-0 Yes Univer s mg tablet 10-23 ity of 00:00: [place] [facility] losartan 50 1-0 Yes Univer s mg tablet 10-23 ity of 00:00: [place] [facility] losartan 50 1-0 Yes Univer s mg tablet 10-23 ity of 00:00: [place] [facility] methylpredn methylpredn No methylpred Naomi isolone 4 isolone 4 nisolone 4 [facility] mg tablets mg tablets mg tablets dic in a dose in a dose in a dose Sports pack Take pack Take pack Take Medicin by oral by oral by oral e route as route as route as directed directed directed duloxetine duloxetine No duloxetine Naomi 60 mg [...] days. 30 days. route for 30 days. Immunizations Ordered Filled Immunization Date Status Comments [facility] e Immunization Name Name SARS-COV-2 COVID-19 2020-11-18 Completed Unive rsity of PFIZER VACCINE 00:00:00 [facility] SARS-COV-2 COVID-19 2020-11-18 Completed Unive rsity of PFIZER VACCINE 00:00:00 [facility] SARS-COV-2 COVID-19 2020-11-18 Completed Unive rsity of PFIZER VACCINE 00:00:00 [facility] SARS-COV-2 COVID-19 2020-10-28 Completed Unive rsity of PFIZER VACCINE 00:00:00 [facility] SARS-COV-2 COVID-19 2020-10-28 Completed Unive rsity of PFIZER VACCINE 00:00:00 [facility] SARS-COV-2 COVID-19 2020-10-28 Completed Unive rsity of PFIZER VACCINE 00:00:00 [facility] Vital Signs Vital Name Observation Time Observation Value Comments Source WEIGHT 2022-05-24 05:24:00 85.3 kg WEIGHT 2022-05-22 05:51:00 84.913 kg WEIGHT 2022-05-21 06:00:00 85.004 kg WEIGHT 2022-05-20 06:00:00 84.913 kg WEIGHT 2022-05-17 05:53:00 85.231 kg WEIGHT 2022-05-15 05:00:00 86.1 kg WEIGHT 2022-05-14 05:00:00 84.7 kg HEIGHT 2022-05-14 04:00:00 167.6 cm WEIGHT 2022-05-13 20:00:00 84.7 kg WEIGHT 2022-05-24 05:24:00 85.3 kg WEIGHT 2022-05-22 05:51:00 84.913 kg WEIGHT 2022-05-21 06:00:00 85.004 kg WEIGHT 2022-05-20 06:00:00 84.913 kg WEIGHT 2022-05-17 05:53:00 85.231 kg WEIGHT 2022-05-15 05:00:00 86.1 kg WEIGHT 2022-05-14 05:00:00 84.7 kg HEIGHT 2022-05-14 04:00:00 167.6 cm WEIGHT 2022-05-13 20:00:00 84.7 kg WEIGHT 2022-05-24 05:24:00 85.3 kg WEIGHT 2022-05-22 05:51:00 84.913 kg WEIGHT 2022-05-21 06:00:00 85.004 kg WEIGHT 2022-05-20 06:00:00 84.913 kg WEIGHT 2022-05-17 05:53:00 85.231 kg WEIGHT 2022-05-15 05:00:00 86.1 kg WEIGHT 2022-05-14 05:00:00 84.7 kg HEIGHT 2022-05-14 04:00:00 167.6 cm WEIGHT 2022-05-13 20:00:00 84.7 kg Systolic blood 2022-04-07 19:23:00 101 mm[Hg] Univer sity of pressure [facility] Diastolic blood 2022-04-07 19:23:00 67 mm[Hg] Unive rsity of pressure [facility] Heart rate 2022-04-07 19:23:00 113 /min [facility] Body height 2022-04-07 19:23:00 167.6 cm [facility] Body weight 2022-04-07 19:23:00 74.39 kg [facility] BMI 2022-04-07 19:23:00 26.47 kg/m2 [facility] Oxygen saturation in 2022-04-07 19:23:00 97 /min [facility] Arterial blood by [facility] Pulse oximetry Branch Height 2022-03-10 00:00:00 66 [...] 15:22:00 137 mm[Hg] Univer sity of pressure [facility] Diastolic blood 2021-12-29 15:22:00 90 mm[Hg] Unive rsity of [facility] Heart rate 2021-12-29 15:20:00 96 /min [facility] Body temperature 2021-12-29 15:20:00 36.83 Mady [facility] 2021-12-29 15:20:00 16 /min [facility] Body height 2021-12-29 15:20:00 167.6 cm [facility] Body weight 2021-12-29 15:20:00 [facility] 2021-12-29 15:20:00 27.62 kg/m2 [facility] Oxygen saturation in 2021-12-29 15:20:00 100 /min University Arterial blood by [facility] Pulse oximetry Branch Heart rate 2022-05-24 16:50:00 68 /min [facility] Respiratory rate 2022-05-24 16:50:00 18 /min [facility] Oxygen saturation in 2022-05-24 16:50:00 98 /min [facility] Arterial blood by Medical Ce nter Pulse oximetry Systolic blood 2022-05-24 15:47:00 94 mm[Hg] [facility] Diastolic blood 2022-05-24 15:47:00 61 mm[Hg] [facility] Body temperature 2022-05-24 15:47:00 36.72 Mady [facility] Body weight 2022-05-24 05:24:00 85.3 kg [facility] 2022-05-24 05:24:00 30.35 kg/m2 [facility] Heart rate 2022-05-21 07:43:00 93 /min [facility] Oxygen saturation in 2022-05-21 07:43:00 99 /min [facility] Arterial blood by [facility] Pulse oximetry Systolic blood 2022-05-21 07:41:30 101 mm[Hg] [facility] Diastolic blood 2022-05-21 07:41:30 65 mm[Hg] [facility] Body weight 2022-05-21 06:00:00 85.004 kg [facility] BMI 2022-05-21 06:00:00 30.25 kg/m2 [facility] Respiratory rate 2022-05-21 05:22:24 18 /min [facility] Body temperature 2022-05-21 05:22:06 37 Mady [facility] Body weight 2022-05-20 06:00:00 84.913 kg [facility] BMI 2022-05-20 06:00:00 30.21 kg/m2 [facility] Heart rate 2022-05-20 04:31:45 89 /min [facility] Respiratory rate 2022-05-20 04:31:45 18 /min [facility] Oxygen saturation in 2022-05-20 04:31:45 100 /min [facility] Arterial blood by Medical [facility]ter Pulse oximetry Body temperature 2022-05-20 04:31:09 37.5 Mady [facility] Systolic blood 2022-05-20 04:31:00 113 mm[Hg] [facility] Diastolic blood 2022-05-20 04:31:00 67 mm[Hg] [facility] Body height 2022-05-14 15:15:00 167.6 cm [facility] Procedures Procedure Date / Time Performing Clinician Source Performed EXTERNAL PROVIDER RECORDS 2022-06-03 06:01:00 Doctor Unassigned, [facility] POCT-GLUCOSE METER 2022-05-24 17:33:00 Hanny Lange [facility] POCT-GLUCOSE METER 2022-05-24 12:48:00 Nazario Henry [facility] POCT-GLUCOSE METER 2022-05-24 08:34:00 Hanny Lange [facility] COMPREHENSIVE METABOLIC 2022-05-24 05:54:00 Hanny Lange [facility] CBC (HEMOGRAM ONLY) 2022-05-24 05:54:00 Hanny Lange [facility] MAGNESIUM 2022-05-24 05:54:00 Tracy Ruiz [facility] PREPARE LEUKO-REDUCED RBC 2022-05-23 23:54:00 Hanny Lange [facility] POCT-GLUCOSE METER 2022-05-23 21:30:00 Hanny Lange [facility] POCT-GLUCOSE METER 2022-05-23 17:47:00 Hanny Lange [facility] POCT-GLUCOSE METER 2022-05-23 12:07:00 Hanny Lange [facility] POCT-GLUCOSE METER 2022-05-23 08:33:00 Nazario Henry [facility] COMPREHENSIVE METABOLIC 2022-05-23 06:20:00 Nazario [facility] PANEL Center CBC (HEMOGRAM ONLY) 2022-05-23 06:20:00 Nazario [facility] POCT-GLUCOSE METER 2022-05-22 21:03:00 Nazario Henry [facility] POCT-GLUCOSE METER 2022-05-22 17:47:00 Nazario Henry [facility] TRANSFUSE LEUKO-REDUCED 2022-05-22 14:36:00 Nazario [facility] RED BLOOD CELLS Center POCT-GLUCOSE METER 2022-05-22 12:53:00 Nazario Henry [facility] TYPE AND SCREEN, AUTOMATED 2022-05-22 10:25:00 Nazario [facility] POCT-GLUCOSE METER 2022-05-22 07:57:00 Nazario Henry [facility] BASIC METABOLIC PANEL 2022-05-22 04:55:00 Dk [facility] CBC W/PLT COUNT & AUTO 2022-05-22 04:55:00 Dk [facility] HEPATIC FUNCTION PANEL 2022-05-22 04:55:00 Dk [facility] CBC W/PLT COUNT & AUTO 2022-05-22 04:55:00 Dk [facility] (CELLAVISION MANUAL DIFF) 2022-05-22 04:55:00 Kelly Root [facility] POCT-GLUCOSE METER 2022-05-21 21:12:00 Nazario Henry [facility] POCT-GLUCOSE METER 2022-05-21 17:13:00 Nazario Henry [facility] POCT-GLUCOSE METER 2022-05-21 12:09:00 Nazario Henry [facility] POCT-GLUCOSE METER 2022-05-21 07:44:00 Nazario Henry [facility] SARS-COV2/RT-PCR ([facility] & 2022-05-21 06:10:[facility] MAGNESIUM 2022-05-21 03:28:00 Ariane Dash [facility] BASIC METABOLIC PANEL 2022-05-21 03:28:00 [facility] & AUTO 2022-05-21 03:28:00 Dk [facility] HEPATIC FUNCTION PANEL 2022-05-21 03:28:00 Dk [facility] CBC W/PLT COUNT & AUTO 2022-05-21 03:28:00 Dk [facility] POCT-GLUCOSE METER 2022-05-20 20:39:00 Nazario Henry [facility] POCT-GLUCOSE METER 2022-05-20 11:45:00 Nazario Henry [facility] POCT-GLUCOSE METER 2022-05-20 08:21:00 Hanny Lange [facility] BASIC METABOLIC PANEL 2022-05-20 06:26:00 Dk [facility] CBC W/PLT COUNT & AUTO 2022-05-20 06:26:00 Dk [facility] HEPATIC FUNCTION PANEL 2022-05-20 06:26:00 Dk [facility] CBC W/PLT COUNT & AUTO 2022-05-20 06:26:00 Dk [facility] (CELLAVISION MANUAL DIFF) 2022-05-20 06:26:00 Dk [facility] PREPARE LEUKO-REDUCED RBC 2022-05-19 23:54:00 Ariane Dash [facility] POCT-GLUCOSE METER 2022-05-19 21:15:00 Nazario Henry [facility] REPORT OF PROCEDURE - 2022-05-19 17:15:43 Verenice Johnson [facility] ENDOSCOPY URL Center REPORT OF PROCEDURE - 2022-05-19 16:55:57 Verenice Johnson [facility] ENDOSCOPY URL Center TISSUE EXAM 2022-05-19 16:47:00 Verenice Johnson [facility] ENDOSCOPY, UPPER GI TRACT, 2022-05-19 16:09:00 Verenice Johnson i [facility] WITH BIOPSY Center COLONOSCOPY 2022-05-19 16:09:00 Verenice Johnson [facility] US BREAST BILATERAL 2022-05-19 14:22:00 Laxmi Rincon [facility] POCT-GLUCOSE METER 2022-05-19 12:42:00 Hanny Lange [facility] CAROTID DOPPLER BILATERAL 2022-05-19 11:15:00 Laxmi Rincon [facility] POCT-GLUCOSE METER 2022-05-19 07:34:00 Hanny Lange [facility] CARBOHYDRATE ANTIGEN 19-9 2022-05-19 05:54:00 Holley Garcia [facility] (CA 19-9) [place] BASIC METABOLIC PANEL 2022-05-19 05:54:00 Kelly Root [facility] CBC W/PLT COUNT & AUTO 2022-05-19 05:54:00 Dk [facility] HEPATIC FUNCTION PANEL 2022-05-19 05:54:00 Dk [facility] CARCINOEMBRYONIC ANTIGEN 2022-05-19 05:54:00 Holley Garcia [facility] (CEA) Center CBC W/PLT COUNT & AUTO 2022-05-19 05:54[facility]00 [facility] 2022-05-19 05:54:00 [facility] PO[facility]SE [facility]ER 2022-05-18 21:30:00 Dk [facility] ECHO W/ CONTRAST LIMITED 2022-05-18 18:31:11 Hiren Kim [facility] STUDY Center ZINC 2022-05-18 18:21:00 Laxmi Rincon [facility] ALPHA-1 ANTITRYPSIN 2022-05-18 18:21:00 Laxmi Rinocn [facility] MUTATION ANALYSIS Center STRONGYLOIDES ANTIBODY, 2022-05-18 18:21:00 Laxmi Rincon [facility] IGG Center CALCIUM, IONIZED 2022-05-18 18:21:00 Laxmi Rincon [facility] HEMOGLOBIN A1C 2022-05-18 18:21:00 Laxmi Rincon [facility] CBC (HEMOGRAM ONLY) 2022-05-18 18:21:00 Ariane Dash [facility] MUMPS ANTIBODY, IGG 2022-05-18 18:20:00 Laxmi Rincon [facility] CARBOHYDRATE ANTIGEN 19-9 2022-05-18 18:20:00 Laxmi Rincon [facility] (CA 19-9) Center COCCIDIOIDES ANTIBODIES 2022-05-18 18:20:00 Laxmi Rincon [facility] RUBEOLA ANTIBODY IGG 2022-05-18 18:20:00 Laxmi Rincon [facility] RUBELLA ANTIBODY, IGG 2022-05-18 18:20:00 Laxmi Rincon [facility] VARICELLA ZOSTER ANTIBODY, 2022-05-18 18:20:00 Laxmi Rincon [facility] IGG Center CRYPTOCOCCAL ANTIGEN 2022-05-18 18:20:00 Laxmi Rincon [facility] TRANSFERRIN 2022-05-18 18:20:00 Laxmi Rincon [facility] CARCINOEMBRYONIC ANTIGEN 2022-05-18 18:20:00 Laxmi Rincon [facility] (CEA) Center T3 2022-05-18 18:20:00 Laxmi Rincon [facility] T4 2022-05-18 18:20:00 Laxmi Rincon [facility] ETHANOL 2022-05-18 18:20:00 Laxmi Rincon [facility] TOXOPLASMA GONDII 2022-05-18 18:20:00 Laxmi Rincon [facility] ANTIBODY, IGG Center XR MANDIBLE 4 VIEWS MIN 2022-05-18 16:53:00 Mckenzie [facility] BLOOD GAS, ARTERIAL 2022-05-18 15:06:00 Mckenzie [facility] TRANSFUSE LEUKO-REDUCED 2022-05-18 12:50:[facility] POCT-GLUCOSE METER 2022-05-18 11:02:00 Dk [facility] TYPE AND SCREEN, AUTOMATED 2022-05-18 10:52:00 [facility] BASIC [facility]OLIC PANEL 2022-05-18 04:50:00 Dk [facility] CBC W/PLT COUNT & AUTO 2022-05-18 04:50:00 Dk [facility] HEPATIC FUNCTION PANEL 2022-05-18 04:50:00 Dk [facility] URIC ACID 2022-05-18 04:50:00 Mckenzie [facility] LIPID PANEL 2022-05-18 04:50:00 Mckenzie [facility] CBC W/PLT COUNT & AUTO 2022-05-18 04:50:00 Dk [facility] (CELLAVISION MANUAL DIFF) 2022-05-18 04:50:00 Dk [facility] PREPARE RBC 2022-05-17 23:54:00 Haim Feliciano [facility] POCT-GLUCOSE METER 2022-05-17 22:11:[address] [facility] [address] CHEST WITHOUT IV 2022-05-17 19:08:00 Hardy [facility] CONTRAST Center POCT-GLUCOSE METER 2022-05-17 17:43:00 Dk [facility] POCT-GLUCOSE METER 2022-05-17 13:20:00 Root, Kelly [facility] 2D ECHO W/ DOPPLER 2022-05-17 12:33:26 [facility] (CW/PW/COLOR) [place] PROTHROMBIN TIME/INR 2022-05-17 09:16:00 Shena Raza [facility] ALPHA FETOPROTEIN (AFP), 2022-05-17 09:16:00 Kelly Root [facility] TUMOR MARKER Center POCT-GLUCOSE METER 2022-05-17 07:41:00 Kelly Root [facility] POCT-GLUCOSE METER 2022-05-17 05:37:00 Dk [facility] BASIC METABOLIC PANEL 2022-05-17 04:02:00 Dk [facility] CBC W/PLT COUNT & AUTO 2022-05-17 04:02:00 Dk [facility] HEPATIC FUNCTION PANEL 2022-05-17 04:02:00 Kelly Root [facility] FIBRINOGEN 2022-05-17 04:02:00 [facility] CBC W/PLT COUNT & AUTO 2022-05-17 04:02:00 Dk [facility] DIFFERENTIAL [place] (CELLAVISION MANUAL DIFF) 2022-05-17 04:02:00 Dk [facility] POCT-GLUCOSE METER 2022-05-16 21:25:00 Dk [facility] TRANSFUSE LEUKO-REDUCED 2022-05-16 16:22:00 Ariane Dash [facility] RED BLOOD CELLS Center POCT-GLUCOSE METER 2022-05-16 12:01:00 Dk [facility] PT/APTT 2022-05-16 09:47:00 [facility] PROTHROMBIN TIME/INR 2022-05-16 09:47:00 Cecy Melgar [facility] B-TYPE NATRIURETIC FACTOR 2022-05-16 09:47:00 Phong Ramos [facility] (BNP) [place] FIBRINOGEN 2022-05-16 09:47:00 IsaiJoss [facility] CBC W/PLT COUNT & AUTO 2022-05-16 09:47[facility]00 [facility] & AUTO 2022-05-16 09:47:00 [facility] ([facility]UAL DIFF) 2022-05-16 09:47:00 Dk [facility] BASIC METABOLIC PANEL 2022-05-16 09:46:00 Dk [facility] HEPATIC FUNCTION PANEL 2022-05-16 09:46:00 Dk [facility] MR ABDOMEN WITH & WITHOUT 2022-05-16 09:15:00 Joss Alex [facility] CONTRAST [place] POCT-GLUCOSE METER 2022-05-16 06:48:00 Ramón [facility] POCT-GLUCOSE METER 2022-05-16 02:49:00 [facility] POCT-GLUCOSE METER 2022-05-15 21:02:00 Claribel Kennedy [facility] PROTEIN, RANDOM URINE 2022-05-15 19:57:00 Phong Ramos [facility] SODIUM, RANDOM URINE 2022-05-15 19:57:00 Phong Ramos [facility] Abigail [facility] CREATININE, RANDOM URINE 2022-05-15 19:57:00 Phong Ramos [facility] EOSINOPHIL SMEAR, URINE 2022-05-15 19:57:00 Phong Ramos [facility], [facility] POCT-GLUCOSE METER 2022-05-15 18:27:00 [facility] POCT-GLUCOSE METER 2022-05-15 11:25:00 Claribel Kennedy [facility] POCT-GLUCOSE METER 2022-05-15 07:39:00 Claribel Kennedy [facility] POCT-GLUCOSE METER 2022-05-15 05:41:00 Kennedy [facility] CBC W/PLT COUNT & AUTO 2022-05-15 05:27:00 [facility] Center HEPATIC FUNCTION PANEL 2022-05-15 05:27:00 Isai, Or [facility] BASIC METABOLIC PANEL 2022-05-15 05:27:00 Isai, Or [facility] PT/APTT 2022-05-15 05:27:00 Isai, Or [facility] FIBRINOGEN 2022-05-15 05:27:00 Isai, Or [facility] CBC W/PLT COUNT & AUTO 2022-05-15 05:27:00 Neema Horan [facility] (CELLAVISION MANUAL DIFF) 2022-05-15 05:27:00 Neema Horan [facility] POCT-GLUCOSE METER 2022-05-15 03:59:00 Kennedy [facility] POCT-GLUCOSE METER 2022-05-15 02:07:00 Claribel [facility] POCT-GLUCOSE METER 2022-05-15 00:11:00 Claribel Kennedy [facility] URINE CULTURE 2022-05-14 23:47:00 Jenaro Minaya [facility] SCREEN, URINE 2022-05-14 23:47:00 Neema Horan [facility] URINALYSIS W/ REFLEX URINE 2022-05-14 23:47:00 Jenaro Minaya [facility] CULTURE Center OSMOLALITY, URINE 2022-05-14 23:47:00 Aung Neema [facility] SODIUM, RANDOM URINE 2022-05-14 23:47:00 Aung Neema [facility] RAPID DRUG SCREEN, URINE 2022-05-14 23:47:00 Jenaro Minaya [facility] CREATININE, RANDOM URINE 2022-05-14 23:47:00 Jenaro Minaya [facility] POTASSIUM, RANDOM URINE 2022-05-14 23:47:00 Jenaro Minaya [facility] UREA NITROGEN, RANDOM 2022-05-14 23:47:00 Jenaro Minaya [facility] URINE Center POCT-GLUCOSE METER 2022-05-14 21:53:00 Kennedy [facility] POCT-GLUCOSE METER 2022-05-14 19:52:00 Claribel Kennedy [facility] POCT-GLUCOSE METER 2022-05-14 16:54:00 Claribel [facility] XR CHEST 1 VIEW PORTABLE / 2022-05-14 15:25:00 Jenaro Minaya [facility] HEREDITARY HEMOCHROMATOSIS 2022-05-14 15:23:00 Jenaro Minaya [facility] POCT-GLUCOSE METER 2022-05-14 15:21:00 Claribel Kennedy [facility] US DOPPLER AORTA / IVC 2022-05-14 12:40:00 Soni Schultz [facility] POCT-GLUCOSE METER 2022-05-14 12:19:00 Kennedy [facility] ABORH, MANUAL 2022-05-14 10:42:00 Louisa Pagan [facility] T SPOT TB 2022-05-14 10:39:00 Jenaro Minaya [facility] MITOCHONDRIA M2 ANTIBODY 2022-05-14 10:33:00 Jenaro Minaya [facility] (IGG) [place] HEMOGLOBIN AND HEMATOCRIT 2022-05-14 10:33:00 Soni Schultz CH, I [facility] FIBRINOGEN 2022-05-14 10:33:00 Jenaro Minaya [facility] [id number]\\, 2022-05-14 10:33:00 Jenaro Minaya [facility] SERUM [place] CERULOPLASMIN 2022-05-14 10:33:00 Jenaro Minaya [facility] PHOSPHATIDYLETHANOL, BLOOD 2022-05-14 10:33:00 Jenaro Minaya [facility] TYPE AND SCREEN, AUTOMATED 2022-05-14 10:33:00 Jenaro Minaya [facility] POCT-GLUCOSE METER 2022-05-14 10:30:00 Kennedy [facility] Lamar [place] ANTI-NUCLEAR ANTIBODY 2022-05-14 08:34:00 Isai, [facility] (MORENITA) [place] PTH, INTACT 2022-05-14 08:34:00 Jenaro Minaya [facility] CYTOMEGALOVIRUS ANTIBODY, 2022-05-14 08:34:00 Jenaro Minaya [facility] IGG Center EBV ANTIBODY, IGM 2022-05-14 08:34:00 Jenaro Minaya [facility] POCT-GLUCOSE METER 2022-05-14 07:44:00 Joanna Shook [facility] Ravindra Arnaud [place] MITOCHONDRIAL AB SCREEN 2022-05-14 07:03:00 Isai, Joss [facility] MITOCHONDRIAL AB TITER 2022-05-14 07:03:00 Isai, Or [facility] ACETAMINOPHEN LEVEL 2022-05-14 07:03:00 Neema Horan [facility] HEPATITIS PANEL, ACUTE 2022-05-14 07:03:00 Jenaro Minaya [facility] HEPATITIS A PANEL 2022-05-14 07:03:00 Jenaro Minaya [facility] HEPATITIS B PANEL 2022-05-14 07:03:00 [facility]TIBODY 2022-05-14 07:03:00 Jenaro Minaya [facility] ALPHA FETOPROTEIN (AFP), 2022-05-14 07:03:00 Jenaro Minaya [facility] TUMOR MARKER Center ACTIN (SMOOTH MUSCLE) 2022-05-14 07:03:00 Isai, Or [facility] ANTIBODY, IGG Center CBC W/PLT COUNT & AUTO 2022-05-14 05:02:00 Isai, Or [facility] DIFFERENTIAL Center HEPATIC FUNCTION PANEL 2022-05-14 05:02:00 Isai, Or [facility] BASIC METABOLIC PANEL 2022-05-14 05:02:00 Isai, Or [facility] PT/APTT 2022-05-14 05:02:00 Isai, Or [facility] CREATINE KINASE (CK) 2022-05-14 05:02:[address] [facility] CBC W/PLT COUNT & AUTO 2022-05-14 05:02:00 Aung [facility] DIFFERENTIAL [facility] (CELLAVISION MANUAL DIFF) 2022-05-14 05:02:00 Aung [facility] AMMONIA 2022-05-14 05:01:00 Jenaro Minaya [facility] [place] ABDOMEN COMPLETE 2022-05-14 04:10:[address] [facility] HAPTOGLOBIN 2022-05-14 00:44:00 Aung [facility] IRON, TIBC, % SAT. 2022-05-14 00:44:00 [facility] (WITHOUT FERRITIN) [facility] FERRITIN 2022-05-14 00:44:00 Aung [facility] OSMOLALITY, SERUM 2022-05-14 00:44:00 Aung [facility] POCT-GLUCOSE METER 2022-05-14 00:17:00 Joanna Shook [facility] Ravindra Arnaud [place] ECG 12-LEAD 2022-05-13 23:07:08 Unknown, H[facility] ECG 12-LEAD 2022-05-13 23:07:08 [facility] 12-[facility]AD 2022-05-13 23:07:08 Unknown, H[facility] ECG 12-LEAD 2022-05-13 23:03:08 Unknown, [facility] ECG 12-LEAD 2022-05-13 23:03:08 Unknown, Hl[facility] BLOOD CULTURE 2022-05-13 22:49:00 Aung, [facility] BLOOD CULTURE 2022-05-13 22:35:00 Aung, [facility] SARS-COV2/RT-PCR ([facility] & 2022-05-13 22:32:00 [facility] [place] CBC W/PLT COUNT & AUTO 2022-05-13 21:31:00 Aung [facility] BASIC METABOLIC PANEL 2022-05-13 21:31:00 Aung [facility] HEPATIC FUNCTION PANEL 2022-05-13 21:31:00 Aung [facility] PT/APTT 2022-05-13 21:31:00 Aung [facility] LACTIC ACID, VENOUS 2022-05-13 21:31:[address] [facility] TSH/FREE T4 IF INDICATED 2022-05-13 21:31:00 Aung [facility] VITAMIN B12 2022-05-13 21:31:00 Aung [facility] VITAMIN D, 25-HYDROXY 2022-05-13 21:31:00 Aung [facility] MAGNESIUM 2022-05-13 21:31:00 Aung [facility] PHOSPHORUS 2022-05-13 21:31:00 Aung [facility] HC LAB HIV-1 AG W/HIV-1&2 2022-05-13 21:31:00 [facility] RPR 2022-05-13 21:31:00 [facility] PERIPHERAL BLOOD SMEAR - 2022-05-13 21:31:[address] [facility] PATHOLOGIST REVIEW [facility] LACTATE DEHYDROGENASE 2022-05-13 21:31:00 Neema Horan [facility] (LDH) [facility] GAMMA GLUTAMYL TRANSFERASE 2022-05-13 21:31:00 Neema Horan [facility] (GGT) [facility] CBC W/PLT COUNT & AUTO 2022-05-13 21:31:00 [facility] DIFFERENTIAL [facility] (CELLAVISION MANUAL DIFF) 2022-05-13 21:31:00 Neema Horan [facility] [id number] 2022-05-11 00:00:00 [facility] MRI CERVICAL SPINE W/O 2022-03-04 00:00:00 Rubi morales Orthopedic CONTRAST Sports Medicine RADEX SPI LUMBOSAC MINIMUM 2022-02-10 00:00:00 Javy cash Orthopedic 4 VIEWS Sports Medicine MRI, lumbar spine, w/o 2022-02-10 00:00:00 Rubi morales Orthopedic contrast Sports Medicine MRI CERVICAL SPINE W/O 2022-02-10 00:00:00 Rubi morales Orthopedic CONTRAST Sports Medicine ASSIGNMENT OF BENEFITS 2021-12-29 14:59:56 Doctor Unassigned, [facility] EXTERNAL PROVIDER RECORDS 2020-12-04 05:01:00 Doctor Unasscristóbal, [facility] EXTERNAL MAMMOGRAM 2019-10-17 00:00:00 Doctor Unassigned, [facility] EXTERNAL PAP SMEAR 2019-08-15 15:29:00 Doctor Unassigned, [facility] Name Medical Branch Knee Surgery Naomi Orthopedi c Sports Medicine Plan of Care Planned Activity Planned Date Details Comments Source Future Scheduled Test 2032-05-19 [facility] colon (procedure) [code = 232649834] Future Scheduled Test 2032-05-19 [facility] (procedure) [code = 377794253] Future Scheduled Test 2025-05-[address] [facility] 00:00:00 (procedure) [code = [facility] 40778815] Future Scheduled Test 2025-05-[address] [facility] 00:00:00 (procedure) [code = [facility] 60810841] Future Scheduled Test 2025-05-[address] [facility] 00:00:00 (procedure) [code = [facility] 47927730] Future Scheduled Test 2023-05-[address] [facility] 00:[facility]:00 Counseling [facility] Medical Cente r Screening (12+) [code = Tobacco Cessation Counseling and Screening (12+)] Future Scheduled Test 2023-05-[address] [facility] 00:00:00 Counseling [facility] Medical Cente r Screening (12+) [code = Tobacco Cessation Counseling and Screening (12+)] Future Scheduled Test 2023-05-[address] [facility] 00:00:00 Counseling and Medical Cente r Screening (12+) [code = Tobacco Cessation Counseling and Screening (12+)] Future Scheduled Test 2022-04-[address] [facility] 00:00:00 (12+) [code = [facility] DEPRESSION SCREENING (12+)] Future Scheduled Test 2022-04-[address] [facility] 00:00:00 (12+) [code = Medical Center DEPRESSION SCREENING (12+)] Future Scheduled Test 2022-04-[address] [facility] 00:00:00 (12+) [code = Medical Center DEPRESSION SCREENING (12+)] Future Scheduled Test 2021-12-03 INFLUENZA VACCINE (#1) [facility] 00:00:00 [code = INFLUENZA Medical Ce nter VACCINE (#1)] Future Scheduled Test 2021-12-03 INFLUENZA VACCINE (#1) [facility] 00:00:00 [code = INFLUENZA Medical Ce nter VACCINE (#1)] Future Scheduled Test 2021-12-03 INFLUENZA VACCINE (#1) [facility] 00:00:00 [code = INFLUENZA Medical Ce nter VACCINE (#1)] Future Scheduled Test 2021-08-09 SHINGLES VACCINES ([address] [facility] 00:00:00 of 2) [code = SHINGLES Medic al Center VACCINES (1 of 2)] Future Scheduled Test 2021-08-09 SHINGLES VACCINES ([address] [facility] 00:00:00 of 2) [code = SHINGLES Medic al Center VACCINES (1 of 2)] Future Scheduled Test 2021-08-09 SHINGLES VACCINES ([address] [facility] 00:00:00 of 2) [code = SHINGLES Medic al Center VACCINES (1 of 2)] Future Scheduled Test 2021-04-20 COVID-19 VACCINE (3 - [facility] 00:00:00 Booster for Pfizer Medical C enter series) [code = COVID-19 VACCINE (3 - Booster for Pfizer series)] Future Scheduled Test 2021-04-20 COVID-19 VACCINE (3 - [facility] 00:00:00 Booster for Pfizer Medical C enter series) [code = COVID-19 VACCINE (3 - Booster for Pfizer series)] Future Scheduled Test 2021-04-20 COVID-19 VACCINE (3 - [facility] 00:00:00 Booster for Pfizer Medical C enter series) [code = COVID-19 VACCINE (3 - Booster for Pfizer series)] Future Scheduled Test 1992-08-09 [facility]:00 malignant neoplasm of [facility] Center cervix (procedure) [code = 492049329] Future Scheduled Test 1992-08-09 [facility]:00 malignant neoplasm of [facility] cervix (procedure) [code = 463832791] Future Scheduled Test 1992-08-09 [facility]ening [facility]:00 malignant neoplasm of [facility] Center cervix (procedure) [code = 845852922] Future Scheduled Test 1990-08-09 DTAP/TDAP/TD VACCINES [facility] 00:00:00 (1 - Tdap) [code = Medical C enter DTAP/TDAP/TD VACCINES (1 - Tdap)] Future Scheduled Test 1990-08-09 DTAP/TDAP/TD VACCINES [facility] 00:00:00 (1 - Tdap) [code = Medical C enter DTAP/TDAP/TD VACCINES (1 - Tdap)] Future Scheduled Test 1990-08-09 DTAP/TDAP/TD VACCINES [facility] 00:00:00 (1 - Tdap) [code = Medical C enter DTAP/TDAP/TD VACCINES (1 - Tdap)] Future Scheduled Test 1971 [facility]:00 malignant neoplasm of [facility] Center breast (procedure) [code = 819218001] Future Scheduled Test [address] [facility] 00:00:00 (combo) [code = CT Medical C enter Colonography (combo)] Future Scheduled Test 1971 [facility] 00:[facility]:00 malignant neoplasm of [facility] Center colon (procedure) [code = 561685611] Future Scheduled Test 1971 [facility] 00:00:00 malignant neoplasm of [facility] Center colon (procedure) [code = 037355185] Future Scheduled Test 1971 Sigmoidoscopy [code = [facility] 00:00:00 Sigmoidoscopy] Medical Cente r Future Scheduled Test 1971 [facility] 00:[facility]:00 malignant neoplasm of [facility]ica [facility] Center breast (procedure) [code = 799435961] Future Scheduled Test [address] [facility] 00:00:00 (combo) [code = CT Medical C enter Colonography (combo)] Future Scheduled Test 1971 [facility] 00:[facility]:00 malignant neoplasm of [facility] Center colon (procedure) [code = 566661324] Future Scheduled Test 1971 [facility] 00:00:00 malignant neoplasm of [facility] Center colon (procedure) [code = 233871330] Future Scheduled Test 1971 [facility] 00:00:00 malignant neoplasm of [facility] Center colon (procedure) [code = 970704442] Future Scheduled Test 1971 [facility] 00:00:00 malignant neoplasm of [facility] Center colon (procedure) [code = 580501986] Future Scheduled Test 1971 Sigmoidoscopy [code = [facility] 00:00:00 Sigmoidoscopy] Medical Darvin [place] Future Scheduled Test 1971 [facility] 00:00:00 malignant neoplasm of [facility] Center breast (procedure) [code = 723339231] Future Scheduled Test [address] [facility] 00:00:00 (combo) [code = CT Medical C enter Colonography (combo)] Future Scheduled Test 1971 [facility] 00:00:00 malignant neoplasm of [facility]ica [facility] Center colon (procedure) [code = 822732101] Future Scheduled Test 1971 [facility] 00:00:00 malignant neoplasm of [facility] Center colon (procedure) [code = 858314155] Future Scheduled Test 1971 [facility] 00:00:00 malignant neoplasm of [facility] Center colon (procedure) [code = 475952033] Future Scheduled Test 1971 [facility] 00:00:00 malignant neoplasm of [facility]ica [facility] Center colon (procedure) [code = 854306065] Future Scheduled Test 1971 Sigmoidoscopy [code = [facility] 00:00:00 Sigmoidoscopy] [place]al [place] Future Appointment 2022-06-10 Shena Raza MD, [facility] 13:00:00 [address] [facility] [address] [address] Encounters Start End Encounter Admission Attending Care Care Encounter Source Date/Time Date/Time Type Type Clinicians Facility Department ID 2022-06-30 2022-06-30 Outpatient R SHABANA SAENZ [facility] B [id number] Univers 09:00:00 09:00:00 SHABANA SAENZ [facility] 2022-06-10 2022-06-10 Outpatient DAVID CROW [facility] [id number] SLE 00:00:00 00:00:00 SHENA 2022-06-10 2022-06-10 Outpatient [facility] [id number] [facility] 00:00:00 00:00:00 2022-06-10 2022-06-10 Outpatient [facility] [id number] [facility] 00:00:00 00:00:00 2022-06-09 2022-06-09 Telephone Jeferson [facility] [id number] [facility] 00[facility]00 [facility] 2022-06-08 2022-06-08 Orders Josesito [facility] [id number] 00:00:00 00:00:00 Only [facility] 2022-06-08 2022-06-08 Documentat Jeferson [facility] [id number] [facility] 00:[facility] 00:00:00 ion [facility] 2022-06-08 2022-06-08 [id number] 00:[facility]00 00:00:00 [facility] 2022-06-08 2022-06-08 Orders Josesito [facility] [id number] 00:00:00 00:00:00 Only [facility] 2022-06-07 2022-06-07 Documentat Tab [facility] [id number] 00:00:00 00:00:00 ion [facility] 2022-06-03 2022-06-03 Orders Doctor KELLEY 1.2.840.114 [id number] Univers 00:00:00 00:00:00 Only Unassigned, SURESH 350.1.13.10 ity of [place] [facility] 4.2.7.2.686 Stephen as [id number] [place] [address] [place] 2022-06-03 2022-06-03 Telephone Josesito [facility] [id number] 00:00:00 00:00:00 [facility] 2022-06-03 2022-06-03 Telephone Josesito [facility] [id number] 00:00:00 00:00:00 [facility] 2022-06-03 2022-06-03 Orders Josesito [facility] [id number] 00:00:00 00:00:00 Only [facility] 2022-06-01 2022-06-01 Documentelly Chin, [facility] [id number] 00:00[facility]00 00:00:00 [facility] 2022-06-01 2022-06-01 Documentelly Chin [facility] [id number] 00:00:00 00:00:00 [facility] 2022-05-26 2022-05-26 Documentelly Chin [facility] [id number] 00:00[facility]00 00:00:00 [facility] 2022-05-13 2022-05-24 Inpatient UR DAVID LANGE [facility] [id number] SLE 19:09:00 22:55:00 HANNY 2022-05-13 2022-05-24 [facility] [id number] [facility] 19:09:00 22:55:00 [facility] Hanny Lange Dana 2022-05-24 2022-05-24 Documentelly Chin [facility] [id number] 00:00:00 00:00:00 [facility] 2022-05-24 2022-05-24 Kelsey Chin [facility] [id number] 00:00:00 00:00:00 [facility] 2022-05-20 2022-05-20 Documentelly Chin [facility] [id number] 00:00:00 00:00:00 [facility] 2022-05-20 2022-05-20 Kelsey Chin [facility] [id number] 00:00:00 00:00:00 [facility] 2022-05-19 2022-05-19 John Johnson [facility] [id number] 16:45:00 17:40:00 [facility] 2022-05-19 2022-05-19 Surgery , [facility] [id number] 16:45:00 17:40:00 [facility] 2022-05-19 2022-05-19 Anesthesia Edmund Palma [facility] [id number] 16:19:00 17:30:00 Event [facility] 2022-05-19 2022-05-19 Anesthesia Edmund Palma [facility] [id number] 16:19:00 17:30:00 Event [facility] 2022-05-19 2022-05-19 Outpatient SHEIKH [facility] [id number] [facility] 08:12:42 08:12:42 [facility] 2022-05-19 2022-05-19 Outpatient SHEIKH [facility] [id number] [facility] 08:12:32 08:12:32 [facility] 2022-05-19 2022-05-19 Documentelly Chin [facility] [id number] 00:00:00 00:00:00 [facility] 2022-05-19 2022-05-19 Documentat Jeferson [facility] [id number] [facility] 00:00[facility]00 00:00:00 [facility] 2022-05-19 2022-05-19 Kelsey Chin [facility] [id number] 00:00:00 00:00:00 [facility] 2022-05-19 2022-05-19 Documentat Jeferson [facility] [id number] [facility] 00:00:00 00:00:00 [facility] 2022-05-18 2022-05-18 Kelsey Chin [facility] [id number] 00:00:00 00:00:00 [facility] 2022-05-18 2022-05-18 Documentelly Giuseppe [facility] [id number] 00:00:00 00:00:00 [facility] 2022-05-14 2022-05-14 Abstract Allie Ng [facility] [id number] 00:00:00 00:00:00 [facility] 2022-05-14 2022-05-14 Travel [facility] [id number] [facility] 00:00:00 00:00:00 [facility] 2022-05-14 2022-05-14 Documentelly Jimenez [facility] [id number] 00:00:00 00:00:00 [facility] 2022-05-14 2022-05-14 Abstract Berenice Allie [facility] [id number] 00:00:00 00:00:00 [facility] 2022-05-14 2022-05-14 Travel [facility] [id number] [facility] 00:00:00 00:00:00 [facility] 2022-05-14 2022-05-14 Documentelly Jimenez [facility] [id number] 00:00:00 00:00:00 [facility] 2022-05-11 2022-05-13 Inpatient EM Brannon Cruz [facility] [id number] [facility] 04:40:00 18:00:00 16 [facility] 2022-05-13 2022-05-13 Orders [facility] [id number] 00:00:00 00:00:00 Only [facility] 2022-05-13 2022-05-13 Telephone Joanna [facility] [id number] 00:00:00 00:00:00 [facility] 2022-05-13 2022-05-13 Orders [facility] [id number] 00:00:00 00:00:00 Only [facility] 2022-05-13 2022-05-13 Telephone Joanna [facility] [id number] [facility] 00:00:00 00:00:00 Lj Shook [facility] 2022-05-12 2022-05-12 Outpatient Brannon Cruz HCANW REF BN0 [id number] [facility] 08:13:00 08:13:00 01 [facility] 2022-04-07 2022-04-07 Outpatient R SHABANA SAENZ [facility] B [id number] [facility] 13:00:00 13:59:20 SHABANA SAENZ [facility] 2022-04-07 2022-04-07 Office Eulalio [facility] 1.2.840.114 [id number] [facility] 13:00:00 13:59:20 Visit Shabana HINTON 350.1.13.10 y WOMENS 4.2.7.2.686 [facility] [id number] [address] 2022-04-06 2022-04-06 Outpatient R JONNY [facility] [id number] Univers 08:30:00 08:30:00 MEGAN rodriguez [facility] 2022-03-19 2022-03-19 Outpatient FOG_Taba_Ho [facility]OSM AOSM [id number] Naomi 00:00:00 00:00:00 Yokasta [id number] [facility] 2022-03-12 2022-03-12 Outpatient FOG_Taba_Ho AOSM AOSM [id number] Naomi 00:00:00 00:00:00 Yokasta [id number] [facility] 2022-03-10 2022-03-10 Outpatient FOG_Taba_Ho AOSM AOSM [id number] Naomi 00:00:00 00:00:00 Yokasta [id number] [facility] 2022-03-10 2022-03-10 Houtan A AOS[facility] [place] - [place]o [id number] 00:00:00 00:00:00 MD Nisha: Thais Crowder [address] [place], [address], [place] [address] , Ph. [phone] 2022-03-09 2022-03-09 Outpatient FOG_Taba_Ho AOSM AOSM [id number] Naomi 00:00:00 00:00:00 Yokasta [id number] [facility] 2022-03-02 2022-03-02 Outpatient Nan LIND [facility] [id number] Univers 15:00:00 15:00:00 MEGAN rodriguez [facility] 2022-02-17 2022-02-17 Outpatient FOG_Taba_Ho AOSM AOSM [id number] Naomi 00:00:00 00:00:00 Yokasta [id number] [facility] 2022-02-17 2022-02-17 [place]outan A [facility] [place] - [place] [id number] Naomi 00:00:00 00:00:00 MD Nisha: Thais Bhandari Orthopausten [address] [place], [address], [place] [address] , Ph. [phone] 2022-02-10 2022-02-10 Outpatient FOG_Taba_Ho AOSM AOSM [id number] Naomi 00:00:00 00:00:00 Yokasta [id number] [facility] 2022-02-10 2022-02-10 [place] [facility] [place] [id number] Naomi 00:00:00 00:00:00 MD Nisha: Thais Bhandari Orthopausten [address] [place], [address], [place] [address] , Ph. [phone] 2022-02-03 2022-02-03 Outpatient FOG_Taba_Ho AOSM AOSM [id number] Naomi 00:00:00 00:00:00 Yokasta 537021 [facility] 2022-02-01 2022-02-01 Refill FishEldern [facility] 1.2.840.114 [id number] Univers 00:00:00 00:00:00 JAMAAL 350.1.13.10 it [place] [id number] [address] 2022-01-28 2022-01-28 Retrieval Specialist Lab, Ang - Db [facility] 1.2.840.1 [id number] Univers 07:45:00 08:00:00 Visit Adnica Megan PABON 350.1.13.10 ity of [place] 4.2.7.2.686 Stephen as SANDEEP?BLEA [id number] [address] MEDICAL OFFICE BUILDING 2022-01-28 2022-01-28 [facility] [id number] Univers 07:45:00 07:45:00 MEGAN [facility] 2022-01-26 2022-01-26 [facility] [id number] Univers 09:30:00 09:30:00 MEGAN [facility] 2022-01-25 2022-01-25 Telephone [facility] 1.2.840.114 [id number] Univers 00:00:00 00:00:00 Megan HINTON 350.1.13.10 i [place] [facility] [id number] [address] 2022-01-11 2022-01-11 Refill Remberto Ulrich [facility] 1.2.840.114 [id number] Univers 00:00:00 00:00:00 JAMAAL 350.1.13.10 [place] [id number] [address] 2021-12-30 2021-12-30 Telephone Remberto Ulrich [facility] 1.2.840.11 [id number] Univers 00:00:00 00:00:00 JAMAAL 350.1.13.10 it [place] [id number] [address] 2021-12-29 2021-12-29 Office Remberto Ulrich JUDITH 1.2.840.114 [id number] Univers 10:00:00 10:48:15 Visit JAMAAL 350.1.13.10 it [place] [id number] [address] 2021-12-29 2021-12-29 Outpatient R REMBERTO ULRICH [facility] [id number] Univers 10:00:00 10:48:15 ity [facility] 2021-12-29 2021-12-29 Orders Doctor ALLIE 1.2.840.114 [id number] Univers 00:00:00 00:00:00 Only Unassigned, SURESH 350.1.13.10 ity [place] [facility] 4.2.7.2.686 Setphen as [id number] [address] 2021-12-22 2021-12-22 Pre Visit SUZANNE Ashraf 1.2.016.524 [id number] Univers 00:00:00 00:00:00 Outreach Mary SOTO 350.1.13.10 [place] [id number] [address] 2021-10-29 2021-10-29 Outpatient R REMBERTO ULRICH [facility] [id number] Univers 10:00:00 10:00:00 ity of [facility] 2021-10-22 2021-10-22 Pre Visit SUZANNE Ashraf 1.2.270.258 [id number] Univers 00:00:00 00:00:00 Outreach Mary SOTO 350.1.13.10 [place] [id number] [place] [address] [place] 2021-10-11 2021-10-11 Refill Remberto Ulrich [facility] 1.2.840.114 [id number] Univers 00:00:00 00:00:00 JAMAAL 350.1.13.10 it [place] [id number] [address] 2021-08-29 2021-08-29 Refill Remberto Ulrich [facility] 1.2.840.114 [id number] Univers 00:00:00 00:00:00 JAMAAL 350.1.13.10 it [place] [phone] [facility] [address] 2021-06-19 2021-06-19 Pre Visit SUZANNE Rubin 1.2.840.114 [id number] Univers 00:00:00 00:00:00 Outreach Juany Soco [place] 350.1.13.10 [place] [id number] [facility] [address] 2020-12-04 2020-12-04 Orders Doctor ALLIE 1.2.840.114 [id number] Univers 00:00:00 00:00:00 Only Unassigned, SURESH 350.1.13.10 ity of [place] [facility] 4.2.7.2.686 Stephen as [id number] [facility] [address] 2020-11-11 2020-11-11 Telephone Remberto Ulrich [facility] 1.2.840.11 4 [id number] Univers 00:00:00 00:00:00 Jamaal 350.1.13.10 [place] [id number] [facility] [address] 2020-10-28 2020-10-28 Outpatient R REMBERTO ULRICH [facility] [id number] Univers 14:00:00 14:00:00 ity of [facility] Results Test Description Test Time Test Comments Results Result Comments Source Tissue Exam 2022-05-25 09:48:55 Test Item Value Reference Range Interpretation Comme nts Case Report (test code = 104) Surgical Pathology Report Case: [id number] Authorizing Provider: Verenice Johnson MD Collected: 05/19/2022 04:47 PM Ordering Location: [address] Received: 05/20/2022 08:15 AM Service Pathologist: Jayleen Craven MD Specimens: A) - Biopsy, Gastric, bx random r/o H-Pylori B) - Biopsy, Gastroesophageal Junction, bx G-junction nodule ADDENDUM (test code = 3381) p5ihjCPtEDTqyZZ4VuUlNSEah8ewm2JvbDLprSD yXG mhsVOxvlEuzh06kJV8dI16HC2jHUJaCxP2ILUtpqL4 Ttn6ALDjTIMypNUaW165m7hmx7kwioRtfHD8lUmnAS JrquxsEuY3UDmcJGLhwcqbYQb5YFhpNROprJS1LSDg rXCzL7NuVLYtXZ4ownb8VYQ7AZuhMXHaGlR8LMBkgQ WuMEMjaYiiNLvkk323FYA3RuUjHBGrwgElsXwoiG0h HcZmSHUOMZUGG04dDm2RAOHOQDEPLZSIIxMHCcNKAU GOIiQvAS3DRN3MI4KJZS3kY12tQEEDXWBYRGUvlmlu TWZcUaEHMNfMQjtqYRNaVZ9HIO3LU5MBWS7tIv3EAX vvPRrZR4SNFaTDTHeQDGsYMG5pxCJxaC== DIAGNOSIS (test code = 3220) h1zdhGWqFSHxz6fmFKBkyVUcJwIxWjYsCdYjRr pcdW TcFWlxadGdFOnyyJwgVWUmPcngpaCxKSXrgOWpZ9Mu xckdOHytMA4xIG1qrGonhUYwwZBgFLAoWpXqc3ksi0 93wDGwj5sgKHFSulptrDq6nGcrM37cn8C3KapqY0tm OZPiNWotZYEoHNufrBRuQDv8OSQduIFczzZzVuJbEG LddBTsbXC9KMSlEF0nutnsZYtpZDroLGFiugU9SVPe cDXpS3SoZTHjKY8digwvUOO1RGayHHDjPXX7EkUsEV Wfl6Maicw3NpVkzDKeSLgnlFCktbzbjwGwKNSwRUwv JfQpS6THBXZHTNqwAXFoRATYQE7NB89sKJZbHZTMKC 1QF1wuYnPxERBLGXHmAEB1CXHykdvmEhQxWZ6wOZEF NHYDRYWLLdOuI1zXPgYSDnRLOKUYM3EoL3wXIANSAM mQGVVUEr0ZDBXbXG6HGWRISBSEGJ8CDBUbludhBtEw LS1lWU6YT1WRVNSAUXOVNeWVEKgZE20BGVVMZSDaQQ sYX9NFMY6CB5VELPNRAkMRNKTOInZfY3OVEW3anKTh BFHcNOCZCHdTMCgWDDWOF9PfFW2LESNLBA3VFNJVYZ FTHHcOT4wQBLUTSTXQJNZPQDTfLQ7GLTuSAaSPL2pn tCXsGRThQSivALGySz8bR0ZFSHGDPLGHFJkJB9NMUK UWYY2BKQbXRcoqNa9HMCiCEFSXDO9TQ9w3YMHdehjh QwYxFC0lFRNbKNKkEZ3YEQQSRBYiM35UIX0PQCAuZ0 AtYHLRBGQQV1MuQ9wJEJGzQ7QySB4JUQQMHTQIWoRO AS1QMZsRNngOCNTUKKfOJvJBQvLQELCCYWTRPIFpL0 TkNMPMNNpGHF3VGBrqUNWyYF7pBZ1WVGCxN6dQF12I ElJPNcTWWD2LOQJIT78uWX4RARKILIPPWZBVPKXKBX 8FHKWwvZLnzJlwloUrZVsoi7UeFUyiICGdPM7hlTwh KBFcKA3hUZVgK0ctmL9vury9EcUdHBHlGgB6QUVmdk Z6Ifb2AABlDCkhs5bgb0FoDWQpFKo6cBjrYaBjFELn m6amsrZpSsJwRTPsIRByZXYjiTHaT864s5qqh0moiu OfsIB5NYTpYWD1OIkzmmZdhiT0XHlrmRZoFkT0WAha ldGpUBuecjPaefNcBte2QJKyL575CSH0nVpog8krOM O6UOTuFUFkFbShCt6dvTQeC079GIRiLMHDLAXhaGx6 MWKdqmSmvdXlwDAKh558K913r0kaBLMqskKseEgJun keb9qqK719NVHroXWzerKkKqIpHFMubPXoaVT6DPQp MY6oklstPLphYRzzLQOsazV3FLRmkVTuC7CfSZUdKV 2elchgVIR8PQnaBQBfUUY9ZyNoIIOnv3Hadps7MiUi jo9mfz75SLF8o8QxcRhwCBG6FTK6TkAqLy6jhTYqIM UvUS0uBmBpyVWlXHHtkv58yHjbZXoxUYC0RDFlmxCz p1Koi0moFzDahaHzB6bfL9LaLWTsGCDpZCJaWwAugz Wha8Yka4TcnEResQq7g6ccBVVaLUAkyQpic0udYSB7 DMRdoZPtM2laoT9iPFWjDA9rnvqhb4ctGFnkDJptLT EmjFD7hxC9XIAvbZZkW8YhbQ8uJHPaTOcqSYSxlsy7 TwQfVi4bkEGgoJyhWIjnJcjkOKwsXAIqmnNtmrMdzW duZGVjXHBsYWluXHBsYWluXGYwXGZzMjRccWxcbGFu XzCcAsNwoVkjtFilHIqrNvWnFEJrJEpsG2kyOtFuTs DzDpa9EZYsnLBwIWAiPkd0IBGbiZOfNDFYiVvvzS5q VNSpzLhhzW3jfKQ2FRAfnrIqjRSYeT6mMUMQvH2cCj Z0HBBqQhn3NKI7OlOxdKKtaK4= COMMENT (test code = 3359) h3xonHSxSXLmuNR0OxFaQQJui0jsp0EzcJZdvUCv XG fpcYDwxwCtsx38cDG6gJ33OW9oMBJpTwP5XXUymdU3 Dys4WZOdEDPilYIxN600s2tmb3xhdrGxnLO3sEnnQS VltjeuVyF5FYhcARTmurkwKFe6RKwwAJSueMR4YXEq eGWbY5HaMXLkRK0vvlt7LBW7QOhqZMMrBoB9UIAyrY NeELXxkXitCMzli802EHW5YdKrQLWwdqVqkWljoS2t KuUuYTEWCzVSjV81ud9vuUQfvmTrl1RlCA8gfUkafi oamVVevNScBQgrVdBjqvGye2kmmHCuQVZaMTEfasVq JAWcesSoiuWzSBUpzzE0fN6tnGNvSGQvauZlpOLugB == CPT Code(s) (test code = 7234) k6mkgDQcKFLwjDJ9NdQqDZGzv3xpx9HhuVOv cGFyXG oopBConvJwnu30uRX6bB93IA8dZGQaUrF2EAHrvoF3 Hre5UDPiZGLjrBEhX839i0ztq4rgllTbeIW3hDesOV VfbfoeZlF6FPjmBLXvtiohVHl0TWhpLZSugED9JBSm pMTxW6TiMFPlAK3osno1HFU8LVslFSTbNvK9UCWooF GnZPGzeHetMZyjk661DEV4ZcPkWKEycgMhzWqzbJ8w PrQpLBK8EDQgGDgxPRDchdY8QXX1LfljEUS5 CLINICAL HISTORY (test code = 7546) q1mggUVeTWZjgHE9SoXzSRSwx2rj l8KfpHHqoOEoIJ bhvBJdhtCxhk44oIV5jS78PT4yOMJtYjK7SUIlmeP1 Iyt6OHDhDHNgmYYvJ020v5uly2zudwWazHB0zXpyBH QdqdctZxG8CBvjAITjfcebLTo8YEqaOXOecGJ0HBIp yEJrJ2ZfGHQuGK8ckkm6UUZ4LBilAUGjSqL4PXFbsL KvLBHbfDixFCmmv134UXS1NjSzQEMpbrCvgYvjdA4t HqXfHCHVIWQ8pk6kjqJby2TjdwZsCAauxI8sxlfvQ6 WhPBQoDN0gHKdeHYN0 GROSS DESCRIPTION (test code = j6kjhTDlBXEjbHFXIULxI3fvuwHbLUYwrGZv [facility] [id number]) dfSOsiCL8tLC3lnGeivCPvzHVfDF7IOLObCbMdGUDs gSMvewQlFcLeJXDtkZHrjWY2LGIwSO5iudmlFQvdQY lsJLXzlcA5FBNgmVPiP0DgKVQwEM2cfmdvYFC8NCkv fW9vuhWCJuspGy3gySUgyYyjSuTxUdHaJLRsGGNwKD EjrTlgPLOcCDp9xE9OIicjR80ad6W2Wgi9CQHmYIYd R3KbMD9ySXSmmUOrW04KXpniPCD1AODWVlytUGIyNO 4Uq0lnWTVpyRZwOGQ9ZPvoiLKjWSEkLBDrLMn8QWXx RSadpFVnVQ9foFakNtlbpJuim3IwaUKtRTeaMMKcTD VyKPvgIJVwOU3QYhOiNFl6UlHvXhPzAXo1IJp3HD6C ElPtYNPvOgFaTDr0CkJnHEq4VLpmMA3UWYM3XKpsWu WgWQL0WKHhDZBwINPhYwRmMHOhZMWcJGljVHgxjWPm UT1eeSgegJDjzxVBOfZTpW2ow4tzXWitq6JzxFAmCK BhciANClxlcGljTmVzdERvYzEgDQpcbHRycGFyXGxp bjBccmluMCANClxsdHJjaFxjZjFcZnMyMCBSZWNlaX GuMXYlmaVtf4KvDOdfdcKpIPSriSEsVMlvuAsokIpb EEKijWnoxoLcQ2M6rqHnVY2hXVYhYCDdZ6DkXKSnH8 2iGRRahH4sDOKrSE0xEZv4OSLtKMTxSbsfUozgxLZ8 HCQoOHW3iwydCmQavaHvNwH7KI5tq32hdEM0wTQjgH HdVtXcE97tmoAiZBSbiadyrjlzMH2oDXGhJgAstMHk fLMqfJS1OMWucB7nnA29drKjinBYOX2haESsKK0FSR BhciANClxjZjBcZnMyMiANClxwbGFpblxlcGljTmVz iSHeWzUeyNaqjI79EQBtjJLxLXB0BF8jBVFglmarZD XeMLXiOOL1EVeilO91eIIvPWGtUIGhyERzrQ2Py0yt JXWpuSHdASL9SKmvmBJpETMpISUiZNapNuRtL7VSSJ HeUgN6RLWvBpFbSEm0XVdbK2KYXETeKLOtDgCaLvC4 KgG2AXq8XQQBYf3eYvy5CSF7TrOhGBO3JHKxWJhdoE QkYVpyHyVOtsmciOJbQYVsPUmoigP4LERwUUBxeLdy tO3sRn2fLgqhvXG2VUEWBWH6ul9ah41acVHaZBVaTG t8ttE0sI2xLgjbVEOgRKufPIHoY22zc3YGp0KqKS5F LXy7tcCwzqdgaS1jOVYvgxRkBMbhxLDcS5vkO1RiWU KyHkUvFsReUNm8DCKjxN1hMz5ilMEogM8hmFMmEXww QAT7hZIbKJPfINNjTXTfXU47SXwLUUTkqtRdQHugvG VkaWNhbCByZWNvcmQgbnVtYmVyIGFuZCBcdTgyMjAg NLf6G8Uvm4PjsDocI0TmdFKqRFUdpZpvN7DegNPvxA 5nuQltlzEbpCApYLDfUtBhN29nl7fhxRMdc93oeYJ2 zHItgSVwLeKwH58ghfCff3VmjOr1hLNiWXyhELKrqT 8unP1oYgBbQBDvmhPJRlmwCQHcVDsLmKWdw1AqRRtf ZKYuBWJIJREoJRPQOIyGM9GRGAJoFEXpjyKHHolaOV BtFZryA5IvBSMkKfMgDEhqpZwcfL4pFBPoW59ir6MQ y1YqWBUyJQxyr5fsiSnhv3YteHEpDIppYBZusVOjHH mosY8kKtGss0avcOb1JSbiexE1XVVrec9XJecmtS7e PyZor5pzaHt2TTSQXmywiiO7v7jhjFdvp2NgtEQmSD 0NCn0= MICROSCOPIC DESCRIPTION (test code = y6hqzECwTGRxpGD5GzTgYDY bn1hlx1CyuXKujYVrKG 3371) udkTJntgNfzo79dEI8hE46FO9tRXIwGzH9SWSaojG4 Kgn0PBOkPSJhkNGwC671p1nsk0wjgzRkzKW8oGckRQ HzzqxcIkA9WAyrLGUkuuxyXMq3HMnlONPdpQB9YHCq bSUpU4SyVIHzUE8hhtt7GOL2QPbwNWEhEbT1UMYxlM RgGEHwtJrdXKjft221HFP6NiTpXSAtstJtfCxvbL7r EaMbIRZMSJCuf2DuURArOKWmhkubZXQgYCMaqk2= SPECIAL STUDIES (test code = 3376) a1ksvNOaQKQhb6vkGVMlpHBuQoOuJcJf ZnRuYmpcdW VkAVhcgmJwLNymm6GrI3HaIbNmELdqpaQuRHEnEkzm ulekHWOsEMA6kuUdQAIrZFhrBIZqYPsxJz9ftZEasM tkLoUvHHJji5rqkaLAtyhtqWt8w9raIKBcFwX4jKTy AHtnG3taanAlaBYfS2ZilBBofBf0y4yuCzXgRgW5hN NyTQueJ2crhyEskNClURVrUUu5yM08OHNydP9ygFUp BYdrdqQlNgQ9KTtsWAIlXuL6TPBikPYtADRkW4dtUC FlPBtbXEUzKFgybTUyHTR5pIxfo3V9vZPwpORunJtj VvZaHhIpHuLPj4VjKPf9cGonG4ZtEZWoObS0hPJyIV XhGQbzSYYzIMPfdtE7cVjbhqKmm41pnKTlPJQuAGGq XbMvySwpACMvSELZk0HciAxaQAS6gNi0iFghEowdJZ U7Kht3TH9gwf01kgo5mQwwSHWikpauNxI9DGinDCPi yzwbXCo7EIvqLZHduFI0VGZweXDrM9GrXHOcBW1jvr o5OUJ6ANptKNDqHeV5ZSYvmUCpZKWqmSdiRSzwu245 OCW4ZoGgUZ4dW5Mbi3Z8qM7qyPUaPLJrhCLrXzYlUN Wbaw0fnUVuWGzwl9XfRVY6mpE8zDWcyCBjZLZfNS41 Ocxgu1QyVligv8JqD99cxVS7NAgxy8zkTT5yGpH7ef HxYOfmu6igmR9cDaS4FFmrAC5cIC8rFZOgpY9hrvbq WMVbOmOprirpCKKjfFookzYoIj3scOwuSCW1TBesH5 nwwY3sLaN6UFtcT9ffmC9sEQa7JQdnuTJ2YPVyxZ7k KV6yspzka7wzYEtqOCqlDOPasbR5tyF3XRAemXTlD4 KyfP9eRLAkNQ4hceuad4wfXBM2WGqzORIaSEP4ElZj BBPfa2Ejned6GsMxm6SjiPAxXIvvG89tv114RLKsrl GsV2fzoVKtfizzuONtijhwWNecanD1MVGqAXOwHVrp XGYxXGZzMjJcbGFuZzEwMzNcaGljaFxmMVxkYmNoXG OpTYznG6mdJnHfG2IdZJLkIxSqQEkrOPlugIRsoRNw uPF8mW8pAD3fGLZbsSHkX9OgGFNyewDjiAQvBOA1sV QmgKLyPE5oRHekfMFfl4oyh2YbR1lbgPkklJP7AQ4i BKPvENYxRNraq8CxsS6gKhainXPwagyfXBvyeeJoQR lrhojdKRPcFDqbO9kuTjCcFGMwaXjjCFlar2VnUYMr DXUeOmpzsbEeFRo8mcGsIBGzdxrfWRTqjVojlZ0iEj ZyRgCuMxznDJ3xWDHbM1apqIJzGGJwMFKnR2brRwWs zE4lnTxxOJruEiAyNnFxLrOVq506ww5mJKTtjPKbqj RWyERoaE9zJJltWTagVWsjsMBzQQcwg4xeBYZco8l9 zWApYCWokgOai1ktUOwgcbCrIONtiFNozZJmHILbh3 0bGOjikPlacSaoPDNae2EywNdbe3UqDbHaFCadc4Qz E82peZPxeZItmMngWAJsclVgDQSik07da7zkNCSyFx B9dYJorRA2pPImwYRpq1SqvPjhKJIuv1huIAYfwf4u oydyeWSlm5RmyR5gpwnrNJvhqNIogcHwESSmd6n7iL LfGAXsPWGuBTgyzKu4ZLUvo759wb2hojZ3dGOfSUV3 YWlsYWJsZSBhcmUgZXZhbHVhdGVkXHBsYWluXGYxXG ZzMjJcbGFuZzEwMzNcaGljaFxmMVxkYmNoXGYxXGxv D0xoXcBlJ3QiJZHgJuYwfFBeJ7mgwLEvNAMhVIdkSG YxXGZzMjJcbGFuZzEwMzNcaGljaFxmMVxkYmNoXGYx MPdnE0ksDkUwG2SvHVJzXeYiOVeqqGTvgufiPBxqrs TaQDvaudijHOKrJAebX5luNnNsZPIfpSvhHFqwn7Zx CMItBYYjOnadkfCoVTh5hkMjDQFsagberPJkbtjmFS cevsCmEAfycppdSUXyJHpaF3frKvDhRAVpfBafKXoa e0YfNWNgFRMnNvnenbKxFHhikQVwm3dxm8UgJ9funF nynOC9OXMnZ7hesVHabVD3EKM7fQ7zWEwplmTtXMKs k7WcMDKwBLPbEcY8jM9xXKJ9RlYTvCmfIPPxBCinTN YxXGZzMjJcbGFuZzEwMzNcaGljaFxmMVxkYmNoXGYx QLkvJ7akDzKpY3DeUUGoJvWgiEbvGZriLRv2HzuueW PwgjyeIPuqcpHiXCxyrmqsIAZjHYjcP6giHbLjPZQd pBpjSPyhi8PtQBUjHIBaLlzihgCzAWBqEQXvlZTqwD VYIS94YGHeEPKxmMrsaA6yaRSDBCAowxY7t3U5ASgb UFKzZMi8QKkvfkLrQYWknE8eHJHwWQ7fWCy3caBnGR Pkx9KbYZ0oTFOqpYRkLIG8BLBzc1WuI2Eox9QsWFBc HUIpcf2aziBeXoURdBDaSNFbku55TKSxLY2vT1npWH MbARZhuyFfzFDhp0EcPXUkuJE6oAMwOA8KGbTAu56e POQlORIJtcAmGKTjfOujsCX7dgY4yZ8hRuDLvSNlGw HHCLszqrBjJYVfyw4droKwKLHcDPZdg7BkkIDeiIBz cqOwD7Fel8SnKMVwtj50ADhhuRJrid21KH4rX0Fnb8 JmpL7dHDzuXYLow7WecWXdcPTxLYMwp6JqP3uuhqzd PKijnYQawQ7gZLHsTBp1XAVtk2UkLFPyp0VsTrAqba NyBEQdNRBeIDAicQ93HYE0lTqfuHnmhfAfHT1fIRHc bcSoYAOcYGTqcA7rSOifkbEsKJJnfuD7j1D6QDmwOA YawfQqGyduCEY1ftMggjX9xSFlK5ysssjjEMljKQAm s6TclQ2eqOCPwABli3CrkFEiuWNFwQLtSF8csoVpCX 3rEFD4MDtpXYGFFYSdJMlbIIYbAZH9PMqgPatrCKD7 tsBhOFFlq3HlAHdaT1vcU93zhHantNu8vRQetTimrV LerPZdHRXxnsN4v6X7NTLnm3FyivnqJIGwSDczFMFx XGZzMjJcbGFuZzEwMzNcaGljaFxmMlxkYmNoXGYyXG tzZ6uaTwSmOkCfNkvkMGY8sL== [facility] [id number] 09:48:55Surgical Pathology Report Case: [id number] Authorizing Provider: Verenice Johnson MD Collected: 05/19/2022 04:47 PM Ordering Location: [address] Received: 05/20/2022 08:15 AM Service Pathologist: Jayleen Craven MD Specimens: A) - Biopsy, Gastric, bx random r/o H-Pylori B) - Biopsy, Gastroesophageal Junction, bx G-junction nodule REASON FOR ADDENDUM: TO REPORT IMMUNOSTAIN ON PART A RESULT:IMMUNOSTAIN FOR H.PYLORI: NEGATIVE.Addendum electronically signed by Jayleen Craven MD on 05/25/2022 at 9:48 AMA. STOMACH, RANDOM BIOPSIES: - ANTRAL AND OXYNTIC MUCOSA WITH MILD CHRONIC INFLAMMATION - NEGATIVE FOR HELICOBACTER PYLORI ORGANISMS BY H&E STAIN - NEGATIVE FOR INTESTINAL META PLASIA, DYSPLASIA, MALIGNANCYB. GASTROESOPHAGEAL JUNCTION, NODULE, BIOPSY: - POLYPOID COLUMNAR MUCOSA WITH NO EVIDENCE OF GOBLET CELLS OR DYSPLASIA OR MALIGNANCY - MILD CHRONIC INFLAMMATION AND REACTIVE CHANGES Signing Pathologist Direct Phone Line: [phone] signed by Jayleen Craven MD on 05/21/2022 at 9:36 AMA. Immunostain for H.pylori is pending and will be reported in an addendum.[id number] hemorrhage, anemiaA. Biopsy, Gastric.Received in formalin labeled with the patient's name, medical record number and "biopsy, gastric" are 3 dominguez soft tissue fragments ranging 0.1- 0.3 cm submitted in toto in A1.B. Biopsy, Gastroesophageal Junction.Received in formalin labeled with the patient's name, medical record number and "biopsy, gastroesophageal junction" is a 0.2 cm white soft tissue fragment submitted in toto in B1.TANA Rachel PA (ASCP)cmPerformed.Theinterpretation of this case included the use of immunohistochemistry or special stains.Control Slides Examined: In-house known positive controls were evaluated along with the test tissue. These controlslides run alongside of the patients sample show appropriate staining. Internal positive and negative controls when available are evaluated Immunohistochemistry technical testing was performed at [facility], Pathology Laboratory where it was developed and its performance characteristics were determined. It has not been cleared or approved by the U.S. Food and Drug Administration. The FDA has determined that such clearance or approval is not necessary. The test is used for clinical purposes. It should not be regarded as investigational or for research. This laboratory is certified under the Clinical Laboratory Improvement Amendments of 1988 (CLIA-88) as qualified to perform high complexity clinical laboratory testing.POC-Glucose [id number] 17:47:46 Test Item Value Reference Range Interpretation Comments POC-Glucose Meter (test 98 mg/dL 70-110 : TE STED AT [facility] code = 1538) [address] [facility], 770 30: Shopper Marketing Manager/Techni shaunna ID = [id number] for ARIANA, SABINO Lab Interpretation (test Normal code = 34051-5) [facility] [place] [id number] 17:47:46 Test Item Value Reference Range Interpretation Comments POC-GLUCOSE METER 98 mg/dL 70-110 : TESTED A T [facility] 6720 (BEAKER) (test code = [facility], 153) [address]: Shopper Marketing Manager/Techni shaunna ID = [id number] for GLORIA OS, SABINO POCT-GLUCOSE [id number] 13:05:17 Test Item Value Reference Range Interpretation Comments POC-GLUCOSE METER 93 mg/dL 70-110 : TESTED A T [facility] 6720 (BEAKER) (test code = [facility], 1538) [address]1723: Shopper Marketing Manager/Techni shaunna ID = [id number] for GLORIA OS, SABINO POCT-GLUCOSE [id number] 08:51:23 Test Item Value Reference Range Interpretation Comments POC-GLUCOSE METER 91 mg/dL 70-110 : TESTED A T [facility] 6720 (BEAKER) (test code = [facility], 153) [address]35: Shopper Marketing Manager/Techni shaunna ID = [id number] for GLORIA OS, SABINO COMPREHENSIVE METABOLIC [id number] 06:27:35 Test Item Value Reference Range Interpretation Comments TOTAL PROTEIN 4.9 gm/dL 6.0-8.3 L (BEAKER) (test code = 770) ALBUMIN (BEAKER) 2.2 g/dL 3.5-5.0 L (test code = 1145) ALKALINE 204 U/L 40-150 H PHOSPHATASE (BEAKER) (test code = 346) BILIRUBIN TOTAL 18.2 mg/dL 0.2-1.2 H (BEAKER) (test code = 377) SODIUM (BEAKER) 134 meq/L 136-145 L (test code = 381) POTASSIUM (BEAKER) 3.6 meq/L 3.5-5.1 (test code = 379) CHLORIDE (BEAKER) 109 meq/L 98-107 H (test code = 382) CO2 (BEAKER) (test 15 meq/L 22-29 L code = 355) BLOOD UREA 21 mg/dL 7-21 NITROGEN (BEAKER) (test code = 354) CREATININE 0.81 mg/dL 0.57-1.25 (BEAKER) (test code = 358) GLUCOSE RANDOM 96 mg/dL 70-105 (BEAKER) (test code = 652) CALCIUM (BEAKER) 8.3 mg/dL 8.4-10.2 L (test code = 697) AST (SGOT) 154 U/L 5-34 H (BEAKER) (test code = 353) ALT (SGPT) 92 U/L 6-55 H (BEAKER) (test code = 347) EGFR (BEAKER) 88 Interpretatio n of eGFR (test code = 1092) mL/min/1.[address] age Description sq m Result G1 Renetta l or high >=90 G2 Mildly decreased 60-89 G3a Mildl y to moderately 45-5 9 G3b Moderately to s everely 30-44 G4 Severl y decreased 15-29 G5 Kidney failure <15Reported eGF R is based on the CKD-EPI 2021 equation that d oes not use a race coefficientEsti mated GFR is not as accur ate as Creatinine Chiquita conklin in predicting glom erular filtration rate . Estimated GFR is not appl icable for dialysis patien ts Shopper Marketing Manager ID - MARCOSpecimen markedly [id number] 06:27:34 Test Item Value Reference Range Interpretation Comments MAGNESIUM (BEAKER) (test code = 1.5 mg/dL 1.6-2.6 L 627) Shopper Marketing Manager ID - MARCOCBC (HEMOGRAM ONLY)2022-05-24 06:11:33 Test Item Value Reference Range Interpretation Comments WHITE BLOOD CELL COUNT (BEAKER) 15.1 K/ L 3.5-10.5 H (test code = 775) RED BLOOD CELL COUNT (BEAKER) 2.52 M/ L 3.93-5.22 L (test code = 761) HEMOGLOBIN (BEAKER) (test code = 7.8 GM/DL 11.2-15.7 L 410) HEMATOCRIT (BEAKER) (test code = 22.6 % 34.1-44.9 L 411) MEAN CORPUSCULAR VOLUME (BEAKER) 90 fL 79-95 (test code = 753) MEAN CORPUSCULAR HEMOGLOBIN 31.0 pg 25.6-32.2 (BEAKER) (test code = 751) MEAN CORPUSCULAR HEMOGLOBIN CONC 34.5 GM/DL 32.2-35.5 (BEAKER) (test code = 752) RED CELL DISTRIBUTION WIDTH 19.5 % 11.7-14.4 H (BEAKER) (test code = 412) PLATELET COUNT (BEAKER) (test 262 K/CU MM 150-450 code = 756) MEAN PLATELET VOLUME (BEAKER) 11.6 fL 9.4-12.3 (test code = 754) NUCLEATED RED BLOOD CELLS 0 /100 WBC 0-0 (BEAKER) (test code = 413) Prepare Leuko-Red [id number] 23:54:00 Test Item Value Reference Range Interpretation Comments CROSSMATCH (test code = 2264) COMPATIBLE Unit ABO (test code = O Neg [id number]) UNIT NUMBER (test code = [id number] 934-0) Status (test code = 9481624) TX_TIMEINCHART Blood Bank Product (test code RED BLOOD CELLS = 2263) PRODUCT CODE (test code = S0235L54 933-2) [facility] [place] [id number] 21:42:25 Test Item Value Reference Range Interpretation Comments POC-GLUCOSE METER 96 mg/dL 70-110 : TESTED A T [facility] 6720 (BEAKER) (test code = [place], 1538) [id number]: Shopper Marketing Manager/Techni shaunna ID = [id number] for SANDER WHITNEY POCT-GLUCOSE [id number] 18:01:08 Test Item Value Reference Range Interpretation Comments POC-GLUCOSE METER 85 mg/dL 70-110 : TESTED A T [facility] 6720 (BEAKER) (test code = [facility], 1538) [id number]: Shopper Marketing Manager/Techni shaunna ID = [id number] for LISA IRCHARD, ABDIAZIZ POCT-GLUCOSE [id number] 12:19:44 Test Item Value Reference Range Interpretation Comments POC-GLUCOSE METER 106 mg/dL 70-110 : TESTED A T [facility] 6720 (BEAKER) (test code = [facility], 1538) 30940: Shopper Marketing Manager/Techni shaunna ID = [id number] for ABDIAZIZ MARAVILLA POCT-GLUCOSE [id number] 08:50:27 Test Item Value Reference Range Interpretation Comments POC-GLUCOSE METER 95 mg/dL 70-110 : TESTED A T [facility] 6720 (BEAKER) (test code = [facility], 1538) 57636: Shopper Marketing Manager/Techni shaunna ID = [id number] for LISA RICHARD, ABDIAZIZ COMPREHENSIVE METABOLIC [id number] 07:13:01 Test Item Value Reference Range Interpretation Comments TOTAL PROTEIN 5.2 gm/dL 6.0-8.3 L (BEAKER) (test code = 770) ALBUMIN (BEAKER) 2.3 g/dL 3.5-5.0 L (test code = 1145) ALKALINE 207 U/L 40-150 H PHOSPHATASE (BEAKER) (test code = 346) BILIRUBIN TOTAL 18.7 mg/dL 0.2-1.2 H (BEAKER) (test code = 377) SODIUM (BEAKER) 134 meq/L 136-145 L (test code = 381) POTASSIUM (BEAKER) 3.9 meq/L 3.5-5.1 (test code = 379) CHLORIDE (BEAKER) 109 meq/L 98-107 H (test code = 382) CO2 (BEAKER) (test 16 meq/L 22-29 L code = 355) BLOOD UREA 20 mg/dL 7-21 NITROGEN (BEAKER) (test code = 354) CREATININE 0.99 mg/dL 0.57-1.25 (BEAKER) (test code = 358) GLUCOSE RANDOM 98 mg/dL 70-105 (BEAKER) (test code = 652) CALCIUM (BEAKER) 8.4 mg/dL 8.4-10.2 (test code = 697) AST (SGOT) 161 U/L 5-34 H (BEAKER) (test code = 353) ALT (SGPT) 101 U/L 6-55 H (BEAKER) (test code = 347) EGFR (BEAKER) 69 Interpretatio n of eGFR (test code = 1092) mL/min/1.[address] age Description sq m Result G1 Norm al or high >=90 G2 Mildly decreased 60-89 G3a Mildl y to moderately 45-5 9 G3b Moderately to s everely 30-44 G4 Severl y decreased 15-29 G5 Kidne y failure <15Reported eGF R is based on the CKD-EPI 2020 equation that d oes not use a race coefficientEsti mated GFR is not as accur ate as Creatinine Chiquita rubin in predicting glom erular filtration rate . Estimated GFR is not appl icable for dialysis patien ts Shopper Marketing Manager ID - MARCOSpecimen markedly ictericCBC (HEMOGRAM ONLY)2022-05-23 07:00:38 Test Item Value Reference Range Interpretation Comments WHITE BLOOD CELL COUNT (BEAKER) 18.2 K/ L 3.5-10.5 H (test code = 775) RED BLOOD CELL COUNT (BEAKER) 2.78 M/ L 3.93-5.22 L (test code = 761) HEMOGLOBIN (BEAKER) (test code = 8.5 GM/DL 11.2-15.7 L 410) HEMATOCRIT (BEAKER) (test code = 24.8 % 34.1-44.9 L 411) MEAN CORPUSCULAR VOLUME (BEAKER) 89 fL 79-95 (test code = 753) MEAN CORPUSCULAR HEMOGLOBIN 30.6 pg 25.6-32.2 (BEAKER) (test code = 751) MEAN CORPUSCULAR HEMOGLOBIN CONC 34.3 GM/DL 32.2-35.5 (BEAKER) (test code = 752) RED CELL DISTRIBUTION WIDTH 19.8 % 11.7-14.4 H (BEAKER) (test code = 412) PLATELET COUNT (BEAKER) (test 261 K/CU MM 150-450 code = 756) MEAN PLATELET VOLUME (BEAKER) 11.7 fL 9.4-12.3 (test code = 754) NUCLEATED RED BLOOD CELLS 0 /100 WBC 0-0 (BEAKER) (test code = 413) POCT-GLUCOSE [id number] 21:15:15 Test Item Value Reference Range Interpretation Comments POC-GLUCOSE METER 96 mg/dL 70-110 : TESTED A T [facility] 6720 (BEAKER) (test code = [facility], 1538) 41936: Shopper Marketing Manager/Techni shaunna ID = [id number] for Lilly Victoria POCT-GLUCOSE [id number] 17:59:29 Test Item Value Reference Range Interpretation Comments POC-GLUCOSE METER 91 mg/dL 70-110 : TESTED A T [facility] 6720 (BEAKER) (test code = [facility], 1538) 685[address]: Shopper Marketing Manager/Techni shaunna ID = [id number] for ANA MORENOINA POCT-GLUCOSE [id number] 14:26:12 Test Item Value Reference Range Interpretation Comments POC-GLUCOSE METER 99 mg/dL 70-110 : TESTED A T [facility] 6720 (BEAKER) (test code = [facility], 1538) 49064: Shopper Marketing Manager/Techni shaunna ID = [id number] for GLORIA KENNEDY, SABINO POCT-GLUCOSE [id number] 08:17:17 Test Item Value Reference Range Interpretation Comments POC-GLUCOSE METER 99 mg/dL 70-110 : TESTED A T [facility] 6720 (BEAKER) (test code = [facility], 1538) 81356: Shopper Marketing Manager/Techni shaunna ID = [id number] for GLORIA OS, SABINO (CELLAVISION MANUAL DIFF)2022-05-22 06:19:21 Test Item Value Reference Range Interpretation Comments NEUTROPHILS - REL 77 % (CELLAVISION)(BEAKER) (test code = 2816) LYMPHOCYTES - REL 5 % (CELLAVISION)(BEAKER) (test code = 2817) MONOCYTES - REL 7 % (CELLAVISION)(BEAKER) (test code = 2818) EOSINOPHILS - REL 1 % (CELLAVISION)(BEAKER) (test code = 2819) BASOPHILS - REL 1 % (CELLAVISION)(BEAKER) (test code = 2820) BANDS - REL (CELLAVISION)(BEAKER) 9 % 0-10 (test code = 2826) NEUTROPHILS - ABS 12.01 K/ul 1.56-6.13 H (CELLAVISION)(BEAKER) (test code = 2830) LYMPHOCYTES - ABS 0.78 K/ul 1.18-3.74 L (CELLAVISION)(BEAKER) (test code = 2831) MONOCYTES - ABS 1.09 K/uL 0.24-0.36 H (CELLAVISION)(BEAKER) (test code = 2832) EOSINOPHILS - ABS 0.16 K/uL 0.04-0.36 (CELLAVISION)(BEAKER) (test code = 2834) BASOPHILS - ABS 0.16 K/uL 0.01-0.08 H (CELLAVISION)(BEAKER) (test code = 2835) BANDS - ABS (CELLAVISION)(BEAKER) 1.40 K/uL 0.00-0.80 H (test code = 2840) TOTAL COUNTED (BEAKER) (test code 100 = 1351) WBC MORPHOLOGY (BEAKER) (test code Normal = 487) GIANT PLATELETS (BEAKER) (test Present code = 313) ANISOCYTOSIS (BEAKER) (test code = 1+ few 961) TARGET CELLS (BEAKER) (test code = 1+ few 480) SARAH CELLS (BEAKER) (test code = 1+ few 474) ARTIFACT (CELLAVISION)(BEAKER) Present (test code = 3432) PLATELET CONCENTRATION Adequate (CELLAVISION)(BEAKER) (test code = 3438) Shopper Marketing Manager ID - Maddie Villa comments: Slide comments:CBC W/PLT COUNT & AUTO [id number] 06:19:20 Test Item Value Reference Range Interpretation Comments WHITE BLOOD CELL COUNT (BEAKER) 15.6 K/ L 3.5-10.5 H (test code = 775) RED BLOOD CELL COUNT (BEAKER) 2.21 M/ L 3.93-5.22 L (test code = 761) HEMOGLOBIN (BEAKER) (test code = 6.8 GM/DL 11.2-15.7 L 410) HEMATOCRIT (BEAKER) (test code = 20.0 % 34.1-44.9 L 411) MEAN CORPUSCULAR VOLUME (BEAKER) 91 fL 79-95 (test code = 753) MEAN CORPUSCULAR HEMOGLOBIN 30.8 pg 25.6-32.2 (BEAKER) (test code = 751) MEAN CORPUSCULAR HEMOGLOBIN CONC 34.0 GM/DL 32.2-35.5 (BEAKER) (test code = 752) RED CELL DISTRIBUTION WIDTH 20.5 % 11.7-14.4 H (BEAKER) (test code = 412) PLATELET COUNT (BEAKER) (test 212 K/CU MM 150-450 code = 756) MEAN PLATELET VOLUME (BEAKER) 12.0 fL 9.4-12.3 (test code = 754) NUCLEATED RED BLOOD CELLS 0 /100 WBC 0-0 (BEAKER) (test code = 413) BASIC METABOLIC [id number] 06:00:53 Test Item Value Reference Range Interpretation Comments SODIUM (BEAKER) 134 meq/L 136-145 L (test code = 381) POTASSIUM 3.6 meq/L 3.5-5.1 (BEAKER) (test code = 379) CHLORIDE (BEAKER) 108 meq/L 98-107 H (test code = 382) CO2 (BEAKER) 16 meq/L 22-29 L (test code = 355) BLOOD UREA 21 mg/dL 7-21 NITROGEN (BEAKER) (test code = 354) CREATININE 1.02 mg/dL 0.57-1.25 (BEAKER) (test code = 358) GLUCOSE RANDOM 96 mg/dL 70-105 (BEAKER) (test code = 652) CALCIUM (BEAKER) 8.3 mg/dL 8.4-10.2 L (test code = 697) EGFR (BEAKER) 67 Interpretatio n of eGFR (test code = mL/min/1.73 values Stage De scription 1092) sq m Result G1 Renetta l or high >=90 G2 Mildly decreased 60-89 G3a Mildl y to moderately 45-5 9 G3b Moderately to s everely 30-44 G4 Severl y decreased 15-29 G5 Kidney failure <15Reported eGF R is based on the CKD-EPI 2020 equation that d oes not use a race coefficientEsti mated GFR is not as accur ate as Creatinine Chiquita conklin in predicting glom erular filtration rate . Estimated GFR is not appl icable for dialysis patien ts Shopper Marketing Manager ID - Cuongn markedly ictericHEPATIC FUNCTION [id number] 06:00:53 Test Item Value Reference Range Interpretation Comments TOTAL PROTEIN (BEAKER) (test code 5.0 gm/dL 6.0-8.3 L = 770) ALBUMIN (BEAKER) (test code = 2.3 g/dL 3.5-5.0 L 1145) BILIRUBIN TOTAL (BEAKER) (test 16.8 mg/dL 0.2-1.2 H code = 377) BILIRUBIN DIRECT (BEAKER) (test 11.8 mg/dL 0.1-0.5 H code = 706) ALKALINE PHOSPHATASE (BEAKER) 190 U/L 40-150 H (test code = 346) AST (SGOT) (BEAKER) (test code = 166 U/L 5-34 H 353) ALT (SGPT) (BEAKER) (test code = 100 U/L 6-55 H 347) Shopper Marketing Manager ID - Dinorah markedly ictericPOCT-GLUCOSE [id number] 21:24:32 Test Item Value Reference Range Interpretation Comments POC-GLUCOSE METER 100 mg/dL 70-110 : TESTED A T [facility] 6720 (BEAKER) (test code = [facility], 1538) 58348: Shopper Marketing Manager/Techni hsaunna ID = [id number] for SA GENAO, JOANA POCT-GLUCOSE [id number] 17:26:06 Test Item Value Reference Range Interpretation Comments POC-GLUCOSE METER 93 mg/dL 70-110 : TESTED A T [facility] 6720 (BEAKER) (test code = [facility], 1538) 31845: Shopper Marketing Manager/Techni shaunna ID = [id number] for HIDA LGO, AGLAE POCT-GLUCOSE [id number] 12:21:38 Test Item Value Reference Range Interpretation Comments POC-GLUCOSE METER 91 mg/dL 70-110 : TESTED A T [facility] 6720 (BEAKER) (test code = [facility], 1538) 89558: Shopper Marketing Manager/Techni shaunna ID = [id number] for HIDA LGO, AGLAE [id number] 09:45:06 Test Item Value Reference Range Interpretation Comments MAGNESIUM (BEAKER) (test code = 1.4 mg/dL 1.6-2.6 L 627) Shopper Marketing Manager ID - MARCOPOC-Glucose [id number] 08:04:13 Test Item Value Reference Range Interpretation Comments POC-Glucose Meter (test 98 mg/dL 70-110 : TE STED AT [facility] code = 1538) [address] [place], [address]: Shopper Marketing Manager/Techni shaunna ID = [id number] for ESCALANTE, AGLAE Lab Interpretation (test Normal code = 51635-5) [facility] [place] [id number] 08:04:13 Test Item Value Reference Range Interpretation Comments POC-GLUCOSE METER 98 mg/dL 70-110 : TESTED A T [facility] 6720 (DANIEL) (test code = [place] [facility], 1538) 98856: Shopper Marketing Manager/Techni shaunna ID = [id number] for HIDA LGO, AGLAE SARS-CoV2/RT-PCR (Asymptomatic ONLY)2022-05-21 07:38:40 Test Item Value Reference Interpretation Comments Range SARS-COV2/RT-PCR Negative Negative The SARS-Co V-2 (test code = target nucleic 96382-8) acids are not detected in thi s specimen. Negat ace results do not preclude SARS-C oV-2 infection and should not be u sed as the sole bas is for patient management decisions. Nega tive results must be combined with clinical observations, patient history , and epidemiolog ical information. A false negative result may occu r if a specimen is improperly collected, transported or handled. This S ARS CoV-2 test is a rapid, real-jennifer e RT-PCR test intended for th e qualitative detection of nucleic acid fr om SARS-CoV-2 in a nasopharyngeal swab specimen collec amanda from individual s suspected of COVID-19 by the ir healthcare provider. CA (test code = This test has been CA) authorized by FDA under an EUA for use by authorized laboratories. This test is only authorized for the duration of the declaration that circumstances exist justifying the authorization of emergency use of in vitro diagnostic tests for detection and/or diagnosis of COVID-19 under Section 564(b)(1) of the Federal Food, Drug and Cosmetic Act, 21 U.S.C. 360bbb-3(b)(1), unless the authorization is terminated or revoked sooner. Fact Sheet for Healthcare Providers: https://www.myBest[employer]/Documents/Xp ert%20Xpress%20SAR S%20CoV-2/Fact%20S heets/302-3802%20S ARS-COV-2%20HEALTH CARE%20PROVIDERS%2 0FACT%20SHEET.pdf Fact Sheet for Healthcare Patients: https://www.[employer]/Documents/Xp ert%20Xpress%20SAR S%20CoV-2/Fact%20S heets/302-3801%20S ARS-COV-2%20PATIEN T%20FACT%20SHEET.p df Lab Interpretation Normal (test code = 45576-8) [facility]2022-05-21 07:38:40 Test Item Value Reference Interpretation Comments Range SARS-COV2/RT-PCR Negative Negative The SARS-Co V-2 (test code = target nucleic 71236-7) acids are not detected in thi s specimen. Negat ace results do not preclude SARS-C oV-2 infection and should not be u sed as the sole bas is for patient management decisions. Nega tive results must be combined with clinical observations, patient history , and epidemiolog ical information. A false negative result may occu r if a specimen is improperly collected, transported or handled. This S ARS CoV-2 test is a rapid, real-jennifer e RT-PCR test intended for th e qualitative detection of nucleic acid fr om SARS-CoV-2 in a nasopharyngeal swab specimen [facility] from individual s suspected of COVID-19 by the ir healthcare provider. CA (test code = This test has been CA) authorized by FDA under an EUA for use by authorized laboratories. This test is only authorized for the duration of the declaration that circumstances exist justifying the authorization of emergency use of in vitro diagnostic tests for detection and/or diagnosis of COVID-19 under Section 564(b)(1) of the Federal Food, Drug and Cosmetic Act, 21 U.S.C. 360bbb-3(b)(1), unless the authorization is terminated or revoked sooner. Fact Sheet for Healthcare Providers: https://www.myBestHelper/Documents/Xp ert%20Xpress%20SAR S%20CoV-2/Fact%20S heets/302-3802%20S ARS-COV-2%20HEALTH CARE%20PROVIDERS%2 0FACT%20SHEET.pdf Fact Sheet for Healthcare Patients: https://www.myBestHelper/Documents/Xp ert%20Xpress%20SAR S%20CoV-2/Fact%20S heets/302-3801%20S ARS-COV-2%20PATIEN T%20FACT%20SHEET.p df Lab Interpretation Normal (test code = 59074-5) [facility])2022-05-21 07:38:40 Test Item Value Reference Range Interpretation Comments SARS-COV2/RT-PCR Negative Negative The SARS-Co V-2 target (test code = nucleic acids a re not 1262062) detected in thi s specimen. Negative result s do not preclude SARS-C oV-2 infection and s hould not be used as the deidra e basis for patient managem ent decisions. Nega tive results must be combine d with clinical observ ations, patient history , and epidemiological information. A false negativ e result may occur if a spec imen is improperly leatha ected, transported or handled. This SARS CoV-2 test is a rapid, real-time RT-PC R test intended for th e qualitative detection of nu cleic acid from SARS-CoV-2 in a nasopharyngeal swab specimen collected from individuals suspected of CO VID-19 by their healthcar e provider. This test has been authorized by FDA under an EUA for use by authorized laboratories. This test is only authorized for the duration of the declaration that circumstances exist justifying the authorization of emergency use of in vitro diagnostic tests for detection and/or diagnosis of COVID-19 under Section 564(b)(1) of the Federal Food, Drug and Cosmetic Act, 21 U.S.C. 360bbb-3(b)(1), unless the authorization is terminated or revoked sooner. Fact Sheet for Healthcare Providers: https://www.[employer] m/Documents/Xpert%20Xpress%20SARS%20CoV-2/Fact%20Sheets/302-3802%31ERTG-ZFZ-2%20 HEALTHCARE%20PROVIDERS%20FACT%20SHEET.pdf Fact Sheet for Healthcare Patients: https://www.[employer]/Documents/Xpert%20Xp ress%20SARS%20CoV-2/Fact%20Sheets/302-3801%92MTIF-PSD-4%20PATIENT%20FACT%20SHEET .pdfBASIC METABOLIC [id number] 04:54:56 Test Item Value Reference Range Interpretation Comments SODIUM (BEAKER) 138 meq/L 136-145 (test code = 381) POTASSIUM 3.4 meq/L 3.5-5.1 L (BEAKER) (test code = 379) CHLORIDE (BEAKER) 111 meq/L 98-107 H (test code = 382) CO2 (BEAKER) 16 meq/L 22-29 L (test code = 355) BLOOD UREA 23 mg/dL 7-21 H NITROGEN (BEAKER) (test code = 354) CREATININE 0.99 mg/dL 0.57-1.25 (BEAKER) (test code = 358) GLUCOSE RANDOM 97 mg/dL 70-105 (BEAKER) (test code = 652) CALCIUM (BEAKER) 8.8 mg/dL 8.4-10.2 (test code = 697) EGFR (BEAKER) 69 Interpretati on of eGFR (test code = mL/min/1.73 values Stage De scription 1092) sq m Result G1 Renetta l or high >=90 G2 Mildly decreased 60-89 G3a Mildl y to moderately 45-5 9 G3b Moderately to s everely 30-44 G4 Severl y decreased 15-29 G5 Kidney failure <15Reported eGF R is based on the CKD-EPI 2021 equation that d oes not use a race coefficientEsti mated GFR is not as accur ate as Creatinine Chiquita conklin in predicting glom erular filtration rate . Estimated GFR is not appl icable for dialysis patien ts Shopper Marketing Manager ID - MARCOSpecimen markedly ictericHEPATIC FUNCTION [id number] 04:54:56 Test Item Value Reference Range Interpretation Comments TOTAL PROTEIN (BEAKER) (test code 5.2 gm/dL 6.0-8.3 L = 770) ALBUMIN (BEAKER) (test code = 2.5 g/dL 3.5-5.0 L 1145) BILIRUBIN TOTAL (BEAKER) (test 17.2 mg/dL 0.2-1.2 H code = 377) BILIRUBIN DIRECT (BEAKER) (test 12.3 mg/dL 0.1-0.5 H code = 706) ALKALINE PHOSPHATASE (BEAKER) 191 U/L 40-150 H (test code = 346) AST (SGOT) (BEAKER) (test code = 189 U/L 5-34 H 353) ALT (SGPT) (BEAKER) (test code = 105 U/L 6-55 H 347) Shopper Marketing Manager ID - MARCOSpecimen markedly ictericCBC W/PLT COUNT & AUTO [id number] 04:35:06 Test Item Value Reference Range Interpretation Comments WHITE BLOOD CELL COUNT (BEAKER) 14.2 K/ L 3.5-10.5 H (test code = 775) RED BLOOD CELL COUNT (BEAKER) 2.34 M/ L 3.93-5.22 L (test code = 761) HEMOGLOBIN (BEAKER) (test code = 7.1 GM/DL 11.2-15.7 L 410) HEMATOCRIT (BEAKER) (test code = 21.3 % 34.1-44.9 L 411) MEAN CORPUSCULAR VOLUME (BEAKER) 91 fL 79-95 (test code = 753) MEAN CORPUSCULAR HEMOGLOBIN 30.3 pg 25.6-32.2 (BEAKER) (test code = 751) MEAN CORPUSCULAR HEMOGLOBIN CONC 33.3 GM/DL 32.2-35.5 (BEAKER) (test code = 752) RED CELL DISTRIBUTION WIDTH 20.6 % 11.7-14.4 H (BEAKER) (test code = 412) PLATELET COUNT (BEAKER) (test 207 K/CU MM 150-450 code = 756) MEAN PLATELET VOLUME (BEAKER) 12.0 fL 9.4-12.3 (test code = 754) NUCLEATED RED BLOOD CELLS 0 /100 WBC 0-0 (BEAKER) (test code = 413) NEUTROPHILS RELATIVE PERCENT 76 % (BEAKER) (test code = 429) LYMPHOCYTES RELATIVE PERCENT 10 % (BEAKER) (test code = 430) MONOCYTES RELATIVE PERCENT 10 % (BEAKER) (test code = 431) EOSINOPHILS RELATIVE PERCENT 2 % (BEAKER) (test code = 432) BASOPHILS RELATIVE PERCENT 0 % (BEAKER) (test code = 437) NEUTROPHILS ABSOLUTE COUNT 10.80 K/ L 1.56-6.13 H (BEAKER) (test code = 670) LYMPHOCYTES ABSOLUTE COUNT 1.40 K/ L 1.18-3.74 (BEAKER) (test code = 414) MONOCYTES ABSOLUTE COUNT (BEAKER) 1.46 K/ L 0.24-0.36 H (test code = 415) EOSINOPHILS ABSOLUTE COUNT 0.28 K/ L 0.04-0.36 (BEAKER) (test code = 416) BASOPHILS ABSOLUTE COUNT (BEAKER) 0.05 K/ L 0.01-0.08 (test code = 417) IMMATURE GRANULOCYTES-RELATIVE 1.10 % 0.00-1.00 H PERCENT (BEAKER) (test code = 2801) POCT-GLUCOSE [id number] 20:55:08 Test Item Value Reference Range Interpretation Comments POC-GLUCOSE METER 98 mg/dL 70-110 : TESTED A T [facility] 6720 (BEAKER) (test code = [facility], 1538) 13427: Shopper Marketing Manager/Techni shaunna ID = [id number] for DAE TOM POCT-GLUCOSE [id number] 12:30:07 Test Item Value Reference Range Interpretation Comments POC-GLUCOSE METER 106 mg/dL 70-110 : TESTED A T [facility] 6720 (BEAKER) (test code = [facility], 1538) 51406: Shopper Marketing Manager/Techni shaunna ID = [id number] for NTSABINO KENNEDY MR, ABDOMEN, [id number] 10:29:00Reason for Exam:->Jaundice Please add: MRCP and ELASTOGRAPHY per Javy Sher. [facility] 1970 Sex: FAddendum BeginsREPORT STATUS:A Addendum: IMPRESSION: 3. Early enhancing lesion in the segment 8 of liver with minimal delayed washout, LI RADS category 4. Signed: Deandre Warner MDReport Verified Date/Time: 05/20/2022 10:29:52 Reading Location: [facility] [id number] CT Body Reading RoomAddendum EndsAddendum BeginsREPORT STATUS:A Addendum: IMPRESSION: 3. Early enhancing lesion in the segment 8 of the liver with delayed washout suspicious for hepatocellular carcinoma, LI RADS category 5. Signed: Deandre Warner MDReport Verified Date/Time: 05/18/2022 10:32:37 Reading Location: [facility] [id number] CT Body Reading RoomAddendum EndsFINAL REPORT MRI of the abdomen dated May 16, 2022 Comment: Multiplanar T1 and T2-weighted images of the abdomen, postcontrast axial andcoronal T1-weighted images of the abdomen were obtained. Liver is enlarged and cirrhotic in appearance with the ureter margins. Liver measures 21.4 cm in the right midclavicular line. A 1.2 cm early enhancing lesion is seen in the segment to 8 of liver with delayed washout. This is best seen image #101, series #2001. The mean liver stiffness value estimated from MR elastography images was: 8.4 kPa at60 Hz. MR elastography estimates of hepatic fibrosis (at 60 Hz) correlates with hepatic fibrosis stage: Stage IV fibrosis or cirrhosis.* These results should be interpreted with clinical and laboratory findings for other possible causes of increased liver stiffness. The calculated liver fat fraction is 35%. Severe hepatic steatosis References:*Stiffness threshold correlation to fibrosis based on meta-analysis by Al, MRI Clin N Am 2014Hepatic Fat Fraction Thresholds based on Abdom Radiol 2020;45(3):661- 671. Spleen is enlarged measuring 12.2 x 4.6 x 12.4 cm. The splenic, superior mesenteric, portal, and hepatic veins are patent. Main portal vein measures 1.2 cm. No portal vein thrombosis is present. Gallbladder is distended. No gallstone or biliary dilatation is seen. Pancreas and adrenals are unremarkable. Both kidneys are normal in size and functioning. A small amount of ascites is seen in the abdomen. The visualized small and large bowel are unremarkable. Subcutaneous soft tissue edema is seen in the abdomen and pelvis. IMPRESSION:1. Cirrhosis with hepatosplenomegaly.2. Severe hepatic steatosis.3. Early enhancing lesion in the segment 8 of the liver without delayed washout to suspicious for hepatocellular carcinoma, LI RADS category 5.4. Small ascites and subcutaneous soft tissueedema. Signed: Deandre Warner MDReport Verified Date/Time: 05/16/2022 14:37:38 Reading Location: [facility] [id number] CT Body Reading Room POCT-GLUCOSE [id number] 08:39:22 Test Item Value Reference Range Interpretation Comments POC-GLUCOSE METER 87 mg/dL 70-110 : TESTED A T [facility] 6720 ([facility]) (test code = [place] [facility], 1538) [address]66[address]: Shopper Marketing Manager/Techni shaunna ID = [id number] for SABINO MORENO CBC W/PLT COUNT & AUTO [id number] 08:11:16 Test Item Value Reference Range Interpretation Comments WHITE BLOOD CELL COUNT (BEAKER) 16.4 K/ L 3.5-10.5 H (test code = 775) RED BLOOD CELL COUNT (BEAKER) 2.45 M/ L 3.93-5.22 L (test code = 761) HEMOGLOBIN (BEAKER) (test code = 7.5 GM/DL 11.2-15.7 L 410) HEMATOCRIT (BEAKER) (test code = 22.1 % 34.1-44.9 L 411) MEAN CORPUSCULAR VOLUME (BEAKER) 90 fL 79-95 (test code = 753) MEAN CORPUSCULAR HEMOGLOBIN 30.6 pg 25.6-32.2 (BEAKER) (test code = 751) MEAN CORPUSCULAR HEMOGLOBIN CONC 33.9 GM/DL 32.2-35.5 (BEAKER) (test code = 752) RED CELL DISTRIBUTION WIDTH 19.9 % 11.7-14.4 H (BEAKER) (test code = 412) PLATELET COUNT (BEAKER) (test 219 K/CU MM 150-450 code = 756) MEAN PLATELET VOLUME (BEAKER) 11.6 fL 9.4-12.3 (test code = 754) NUCLEATED RED BLOOD CELLS 0 /100 WBC 0-0 (BEAKER) (test code = 413) (CELLAVISION MANUAL DIFF)2022-05-20 08:11:16 Test Item Value Reference Range Interpretation Comments NEUTROPHILS - REL 84 % (CELLAVISION)(BEAKER) (test code = 2816) LYMPHOCYTES - REL 6 % (CELLAVISION)(BEAKER) (test code = 2817) MONOCYTES - REL 8 % (CELLAVISION)(BEAKER) (test code = 2818) BANDS - REL (CELLAVISION)(BEAKER) 1 % 0-10 (test code = 2826) NEUTROPHILS - ABS 13.78 K/ul 1.56-6.13 H (CELLAVISION)(BEAKER) (test code = 2830) LYMPHOCYTES - ABS 0.98 K/ul 1.18-3.74 L (CELLAVISION)(BEAKER) (test code = 2831) MONOCYTES - ABS 1.31 K/uL 0.24-0.36 H (CELLAVISION)(BEAKER) (test code = 2832) BANDS - ABS (CELLAVISION)(BEAKER) 0.16 K/uL 0.00-0.80 (test code = 2840) TOTAL COUNTED (BEAKER) (test code 100 = 1351) WBC MORPHOLOGY (BEAKER) (test Normal code = 487) PLT MORPHOLOGY (BEAKER) (test Normal code = 486) ANISOCYTOSIS (BEAKER) (test code 2+ moderate = 961) MACROCYTES (BEAKER) (test code = 2+ moderate 964) POIKILOCYTES (BEAKER) (test code 1+ few = 966) TARGET CELLS (BEAKER) (test code 1+ few = 480) OVALOCYTES (BEAKER) (test code = 1+ few 477) TEAR DROP CELLS (BEAKER) (test 1+ few code = 481) SARAH CELLS (BEAKER) (test code = 1+ few 474) ARTIFACT (CELLAVISION)(BEAKER) Present (test code = 6492) PLATELET CONCENTRATION Adequate (CELLAVISION)(BEAKER) (test code = 4193) Shopper Marketing Manager ID - [place] comments: Slide comments:HEPATIC FUNCTION PANEL 2022-05-20 07:37:11 Test Item Value Reference Range Interpretation Comments TOTAL PROTEIN (BEAKER) (test code 5.5 gm/dL 6.0-8.3 L = 770) ALBUMIN (BEAKER) (test code = 2.7 g/dL 3.5-5.0 L 1145) BILIRUBIN TOTAL (BEAKER) (test 18.1 mg/dL 0.2-1.2 H code = 377) BILIRUBIN DIRECT (BEAKER) (test 12.7 mg/dL 0.1-0.5 H code = 706) ALKALINE PHOSPHATASE (BEAKER) 197 U/L 40-150 H (test code = 346) AST (SGOT) (BEAKER) (test code = 227 U/L 5-34 H 353) ALT (SGPT) (BEAKER) (test code = 105 U/L 6-55 H 347) Shopper Marketing Manager ID - Davidimen markedly ictericBASIC METABOLIC [id number] 07:37:10 Test Item Value Reference Range Interpretation Comments SODIUM (BEAKER) 137 meq/L 136-145 (test code = 381) POTASSIUM 3.5 meq/L 3.5-5.1 (BEAKER) (test code = 379) CHLORIDE (BEAKER) 109 meq/L 98-107 H (test code = 382) CO2 (BEAKER) 19 meq/L 22-29 L (test code = 355) BLOOD UREA 26 mg/dL 7-21 H NITROGEN (BEAKER) (test code = 354) CREATININE 0.80 mg/dL 0.57-1.25 (BEAKER) (test code = 358) GLUCOSE RANDOM 86 mg/dL 70-105 (BEAKER) (test code = 652) CALCIUM (BEAKER) 9.0 mg/dL 8.4-10.2 (test code = 697) EGFR (BEAKER) 90 Interpretatio n of eGFR (test code = mL/min/1.73 values Stage De scription 1092) sq m Result G1 Renetta l or high >=90 G2 Mildly decreased 60-89 G3a Mildl y to moderately 45-5 9 G3b Moderately to s everely 30-44 G4 Severl y decreased 15-29 G5 Kidney failure <15Reported eGF R is based on the CKD-EPI 2020 equation that d oes not use a race coefficientEsti mated GFR is not as accur ate as Creatinine Chiquita conklin in predicting glom erular filtration rate . Estimated GFR is not appl icable for dialysis patien ts Shopper Marketing Manager ID - MARCOSpecimen markedly ictericPrepare Leuko-Red [id number] 23:54:00 Test Item Value Reference Range Interpretation Comments CROSSMATCH (test code = 2264) COMPATIBLE Unit ABO (test code = O Neg 2035990) UNIT NUMBER (test code = [id number] 934-0) Status (test code = 5239235) [facility]INCH[facility] Blood Bank Product (test code RED BLOOD CELLS = 2263) PRODUCT CODE (test code = C2549C78 933-2) [facility] [id number] 23:54:00 Test Item Value Reference Range Interpretation Comments CROSSMATCH (test code = 2264) COMPATIBLE Unit ABO (test code = O Neg 2669832) UNIT NUMBER (test code = [id number] 934-0) Status (test code = 8515260) [facility] Product (test code RED BLOOD CELLS = 2263) PRODUCT CODE (test code = C7207G50 933-2) [facility] [id number] 21:29:04 Test Item Value Reference Range Interpretation Comments POC-Glucose Meter (test 100 mg/dL 70-110 : TE STED AT [facility] code = 1538) [address] [facility], [address]: Shopper Marketing Manager/Techni shaunna ID = [id number] for SASUABRAHAMJOANA Lab Interpretation (test Normal code = 31867-5) [facility]-GLUCOSE [id number] 21:29:04 Test Item Value Reference Range Interpretation Comments POC-GLUCOSE METER 100 mg/dL 70-110 : TESTED A T [facility] 6720 (BEAKER) (test code = [place] [facility], 1538) [address]: Shopper Marketing Manager/Techni shaunna ID = [id number] for SA GENAO, JOANA MM, U/S, BREAST, [id number] 15:04:00Reason for exam:->exclude any breast masses; liver transplant evaluation Should this be performedat the bedside?->Yes[facility] : 1970 Sex: FMRN#: [id number] - MM, U/S, BREAST, BILATERAL ULTRASOUND OF BOTH BREASTS: 05/19/2022LINICAL: Screeningpre-transplant. Real-time ultrasound of both breasts was performed. Van scale images of the real-time examination were reviewed. No suspicious solid mass is seen in either breast. Bilateral non-specific axillary lymph nodes are noted. IMPRESSION: BENIGN There is no sonographic evidence of malignancy in either breast. Laura Baron M.D. glenda/:05/19/2022 15:04:29 Normal Exam Ultrasound BI-RADS: 2 Benign 44732 CRYPTOCOCCAL [id number] 14:30:49 Test Item Value Reference Range Interpretation Comments CRYPTOCOCCAL ANTIGEN, SERUM Negative Negative, Interference (BEAKER) (test code = 1828) Carotid doppler [id number] 13:39:50Ejection FractionSLEH ECHO HEARTLAB MKCKESSON [facility]ot[facility] doppler [id number] 13:39:50Ejection FractionSLEH ECHO HEARTLAB MKCKESSON [facility]anoCarotid doppler [id number] 13:39:50Ejection FractionSLEH ECHO HEARTLAB MKCKQueen [facility] HospitalPOCT-GLUCOSE [id number] 12:57:16 Test Item Value Reference Range Interpretation Comments POC-GLUCOSE METER 86 mg/dL 70-110 : TESTED A T [facility] 6720 (BEAKER) (test code = [place], 1538) [address]: Shopper Marketing Manager/Techni shaunna ID = [id number] for SABINO MORENO RUBELLA ANTIBODY, [id number] 10:52:32 Test Item Value Reference Range Interpretation Comments RUBELLA IGG QUANTITATION (BEAKER) 23.0 IU/mL <8.0 H (test code = 572) Rubella IgG Result Interpretation: </= 7.0 IU/mL Negative - Presumed non- immune 8.0 - 9.9 IU/mL Equivocal >= 10.0 IU/mL Positive - Presumed immune VARICELLA ZOSTER ANTIBODY, [id number] 10:52:32 Test Item Value Reference Range Interpretation Comments VARICELLA ZOSTER IGG (AL) (BEAKER) 4.1 (test code = 3197) VARICELLA ZOSTER RESULT INTERPRETATIONS: <=0.8 Al Nonreactive: Presumed non- immune to VZV 0.9-1.0Al Equivocal >=1.1 Al Reactive: Presumed immune to VZV TOXOPLASMA GONDII ANTIBODY, [id number] 10:52:32 Test Item Value Reference Range Interpretation Comments TOXOPLASMA GONDII IGG QUANTITATIVE < IU/mL <10.0 (BEAKER) (test code = 3428) Toxoplasma Gondii IgG Result Interpretation: </= 9.9 IU/mL Normal 10-11 IU/mL Equivocal >/= 12IU/mL [id number] 10:22:44 Test Item Value Reference Range Interpretation Comments T3 TOTAL (BEAKER) (test code = 656) < ng/mL 0.60-1.81 L Shopper Marketing Manager ID - [id number] SPOT [id number] 10:05:06 Test Item Value Reference Range Interpretation Comments T-SPOT TB (BEAKER) (test code = See attachment 1167) NEG CONTROL SPOT COUNT (BEAKER) See attachment (test code = 5064) PANEL A SPOT (BEAKER) (test code See attachment = 1685) PANEL B SPOT (BEAKER) (test code See attachment = 1686) POS CONTROL SPOT CT (BEAKER) See attachment (test code = 1687) SCAN RESULT (test code = 8119704) Echo w contrast limited [id number] 09:58:43Ejection FractionSLEH ECHO HEARTLAB MKCKESSON [facility]anoEcho w contrast limited study 2022-05-19 09:58:43Ejection FractionSLEH ECHO HEARTLAB MKCKESSON [facility] w contrast limited [id number] 09:58:43Ejection FractionSLEH ECHO HEARTLAB MKCKESSON [facility]anoHEMOGLOBIN [id number] 09:43:02 Test Item Value Reference Range Interpretation Comments HEMOGLOBIN A1C 4.8 % See_Comment [Automated m essage] ELECTROPHORESIS (BEAKER) The system which (test code = 3811) generated this result transmitted ref erence range: <=5.6%. The reference range was not used to int erpret this result as normal/abnormal . "The A1c is measured using a NGSP-certified method. HbA1c value equal to or greater than 6.5% as thediagnosis cutoff for diabetes. An HbA1c value of 5.7- 6.4% indicates increased risk for diabetes (prediabetes)."(CELLAVISION MANUAL DIFF)2022-05-19 07:57:58 Test Item Value Reference Range Interpretation Comments NEUTROPHILS - REL 84 % (CELLAVISION)(BEAKER) (test code = 2816) LYMPHOCYTES - REL 4 % (CELLAVISION)(BEAKER) (test code = 2817) MONOCYTES - REL 5 % (CELLAVISION)(BEAKER) (test code = 2818) EOSINOPHILS - REL 1 % (CELLAVISION)(BEAKER) (test code = 2819) MYELOCYTES - REL 1 % 0-0 H (CELLAVISION)(BEAKER) (test code = 2822) BANDS - REL (CELLAVISION)(BEAKER) 5 % 0-10 (test code = 2826) NEUTROPHILS - ABS 13.44 K/ul 1.56-6.13 H (CELLAVISION)(BEAKER) (test code = 2830) LYMPHOCYTES - ABS 0.64 K/ul 1.18-3.74 L (CELLAVISION)(BEAKER) (test code = 2831) MONOCYTES - ABS 0.80 K/uL 0.24-0.36 H (CELLAVISION)(BEAKER) (test code = 2832) EOSINOPHILS - ABS 0.16 K/uL 0.04-0.36 (CELLAVISION)(BEAKER) (test code = 2834) MYELOCYTES-ABS 0.16 K/uL 0.00-0.00 H (CELLAVISION)(BEAKER) (test code = 2837) BANDS - ABS (CELLAVISION)(BEAKER) 0.80 K/uL 0.00-0.80 (test code = 2840) TOTAL COUNTED (BEAKER) (test code 100 = 1351) WBC MORPHOLOGY (BEAKER) (test Normal code = 487) PLT MORPHOLOGY (BEAKER) (test Normal code = 486) ANISOCYTOSIS (BEAKER) (test code 2+ moderate = 961) MACROCYTES (BEAKER) (test code = 2+ moderate 964) POIKILOCYTES (BEAKER) (test code 2+ moderate = 966) TARGET CELLS (BEAKER) (test code 2+ moderate = 480) ARTIFACT (CELLAVISION)(BEAKER) Present (test code = 3432) PLATELET CONCENTRATION Adequate (CELLAVISION)(BEAKER) (test code = 3438) Shopper Marketing Manager ID - Haim OverholtUser comments: Slide comments:CBC W/PLT COUNT & AUTO [id number] 07:57:57 Test Item Value Reference Range Interpretation Comments WHITE BLOOD CELL COUNT (BEAKER) 16.0 K/ L 3.5-10.5 H (test code = 775) RED BLOOD CELL COUNT (BEAKER) 2.48 M/ L 3.93-5.22 L (test code = 761) HEMOGLOBIN (BEAKER) (test code = 7.5 GM/DL 11.2-15.7 L 410) HEMATOCRIT (BEAKER) (test code = 22.3 % 34.1-44.9 L 411) MEAN CORPUSCULAR VOLUME (BEAKER) 90 fL 79-95 (test code = 753) MEAN CORPUSCULAR HEMOGLOBIN 30.2 pg 25.6-32.2 (BEAKER) (test code = 751) MEAN CORPUSCULAR HEMOGLOBIN CONC 33.6 GM/DL 32.2-35.5 (BEAKER) (test code = 752) RED CELL DISTRIBUTION WIDTH 19.7 % 11.7-14.4 H (BEAKER) (test code = 412) PLATELET COUNT (BEAKER) (test 201 K/CU MM 150-450 code = 756) MEAN PLATELET VOLUME (BEAKER) 11.2 fL 9.4-12.3 (test code = 754) NUCLEATED RED BLOOD CELLS 0 /100 WBC 0-0 (BEAKER) (test code = 413) POCT-GLUCOSE [id number] 07:53:37 Test Item Value Reference Range Interpretation Comments POC-GLUCOSE METER 86 mg/dL 70-110 : TESTED A T [facility] 6720 (BEAKER) (test code = [place], 1538) [address]: Shopper Marketing Manager/Techni shaunna ID = [id number] for SABINO MORENO CARCINOEMBRYONIC ANTIGEN (CEA)2022-05-19 06:52:05 Test Item Value Reference Range Interpretation Comments CARCINOEMBRYONIC ANTIGEN (BEAKER) 14.5 ng/mL 0.0-5.0 H (test code = 685) Shopper Marketing Manager ID - BSHEPATIC FUNCTION [id number] 06:32:40 Test Item Value Reference Range Interpretation Comments TOTAL PROTEIN (BEAKER) (test code 5.5 gm/dL 6.0-8.3 L = 770) ALBUMIN (BEAKER) (test code = 2.8 g/dL 3.5-5.0 L 1145) BILIRUBIN TOTAL (BEAKER) (test 19.6 mg/dL 0.2-1.2 H code = 377) BILIRUBIN DIRECT (BEAKER) (test 12.8 mg/dL 0.1-0.5 H code = 706) ALKALINE PHOSPHATASE (BEAKER) 207 U/L 40-150 H (test code = 346) AST (SGOT) (BEAKER) (test code = 183 U/L 5-34 H 353) ALT (SGPT) (BEAKER) (test code = 87 U/L 6-55 H 347) Shopper Marketing Manager ID - BSSpecimen markedly ictericBASIC METABOLIC [id number] 06:32:39 Test Item Value Reference Range Interpretation Comments SODIUM (BEAKER) 140 meq/L 136-145 (test code = 381) POTASSIUM 3.5 meq/L 3.5-5.1 (BEAKER) (test code = 379) CHLORIDE (BEAKER) 109 meq/L 98-107 H (test code = 382) CO2 (BEAKER) 19 meq/L 22-29 L (test code = 355) BLOOD UREA 30 mg/dL 7-21 H NITROGEN (BEAKER) (test code = 354) CREATININE 0.72 mg/dL 0.57-1.25 (BEAKER) (test code = 358) GLUCOSE RANDOM 96 mg/dL 70-105 (BEAKER) (test code = 652) CALCIUM (BEAKER) 9.3 mg/dL 8.4-10.2 (test code = 697) EGFR (BEAKER) 102 Interpretatio n of eGFR (test code = mL/min/1.73 values Stage De scription 1092) sq m Result G1 Renetta l or high >=90 G2 Mildly decreased 60-89 G3a Mildl y to moderately 45-5 9 G3b Moderately to s everely 30-44 G4 Severl y decreased 15-29 G5 Kidney failure <15Reported eGF R is based on the CKD-EPI 2020 equation that d oes not use a race coefficientEsti mated GFR is not as accur ate as Creatinine Chiquita rubin in predicting glom erular filtration rate . Estimated GFR is not appl icable for dialysis patien ts Shopper Marketing Manager ID - BSSpecimen markedly ictericBLOOD [id number] 00:01:16 Test Item Value Reference Range Interpretation Comments CULTURE (BEAKER) (test No growth in 5 days code = 1095) BLOOD [id number] 00:01:16 Test Item Value Reference Range Interpretation Comments CULTURE (BEAKER) (test No growth in 5 days code = 1095) POCT-GLUCOSE [id number] 21:42:49 Test Item Value Reference Range Interpretation Comments POC-GLUCOSE METER 89 mg/dL 70-110 : TESTED A T [facility] 6720 (BEAKER) (test code = [place], 1538) [address]: Shopper Marketing Manager/Techni shaunna ID = [id number] for JOHNNY MCLEAN [id number] 20:05:50 Test Item Value Reference Range Interpretation Comments T4 TOTAL (BEAKER) (test code = 895) 2.0 ug/dL 4.9-11.7 L Shopper Marketing Manager ID - MARCOCARCINOEMBRYONIC ANTIGEN (CEA)2022-05-18 19:24:22 Test Item Value Reference Range Interpretation Comments CARCINOEMBRYONIC ANTIGEN (BEAKER) 16.1 ng/mL 0.0-5.0 H (test code = 685) Shopper Marketing Manager ID - [id number] 19:05:24 Test Item Value Reference Range Interpretation Comments ETHANOL (BEAKER) (test code = 400) < mg/dL <=10 Shopper Marketing Manager ID - EKTAMBEEYFSLJBIB5928-25-41 19:03:58 Test Item Value Reference Range Interpretation Comments TRANSFERRIN (BEAKER) (test code = 58 mg/dL 174-382 L 541) Shopper Marketing Manager ID - BSSpecimen markedly ictericCBC (HEMOGRAM ONLY)2022-05-18 18:54:20 Test Item Value Reference Range Interpretation Comments WHITE BLOOD CELL COUNT (BEAKER) 17.2 K/ L 3.5-10.5 H (test code = 775) RED BLOOD CELL COUNT (BEAKER) 2.74 M/ L 3.93-5.22 L (test code = 761) HEMOGLOBIN (BEAKER) (test code = 8.2 GM/DL 11.2-15.7 L 410) HEMATOCRIT (BEAKER) (test code = 24.9 % 34.1-44.9 L 411) MEAN CORPUSCULAR VOLUME (BEAKER) 91 fL 79-95 (test code = 753) MEAN CORPUSCULAR HEMOGLOBIN 29.9 pg 25.6-32.2 (BEAKER) (test code = 751) MEAN CORPUSCULAR HEMOGLOBIN CONC 32.9 GM/DL 32.2-35.5 (BEAKER) (test code = 752) RED CELL DISTRIBUTION WIDTH 18.8 % 11.7-14.4 H (BEAKER) (test code = 412) PLATELET COUNT (BEAKER) (test 210 K/CU MM 150-450 code = 756) MEAN PLATELET VOLUME (BEAKER) 11.5 fL 9.4-12.3 (test code = 754) NUCLEATED RED BLOOD CELLS 0 /100 WBC 0-0 (BEAKER) (test code = 413) CALCIUM, [id number] 18:48:00 Test Item Value Reference Range Interpretation Comments CALCIUM IONIZED (BEAKER) (test 1.21 mmol/L 1.12-1.27 code = 698) PH, BLOOD (BEAKER) (test code = 7.39 1810) RAD, MANDIBLE, MIN 4 [id number] 17:17:00Reason for exam:->liver transplant evaluationShould this be performed at the bedside?->Yes [facility] 1970 Sex: FFINAL REPORT EXAMINATION: RAD, MANDIBLE, MIN 4 VIEWS INDICATION: Liver transplant evaluation COMPARISON: None FINDINGS: Radiographs of the mandible demonstrate no acute fracture or dislocation. Alignment is anatomic. Osseous density appears unremarkable. Paranasal sinuses are well aerated.Partially visualized lung bases are clear. IMPRESSION: Unremarkable exam. Signed: Lidia Lundberg MDReport Verified Date/Time: 05/18/2022 17:17:00 Blood gas, [id number] 15:13:07 Test Item Value Reference Range Interpretation Comments pH, Arterial (test code 7.48 7.35-7.45 H = 2744-1) pCO2, Arterial (test 25 See_Comment L [Autom ated code = 2019-8) message] The system which generated this result transmitted reference range : 35 - 45 mm Hg. The reference range was not used to interpret this result as normal/abnormal . pO2, Arterial (test 123 See_Comment H [Automa amanda code = 2703-7) message] The system which generated this result transmitted reference range : 80 - 90 mm Hg. The reference range was not used to interpret this result as normal/abnormal . O2 Sat, Arterial (test 98.7 % 96.0-97.0 H code = 2708-6) HCO3, Arterial (test 18 mmol/L 21-29 L code = 1960-4) Base Excess, Arterial -4.3 mmol/L -2.0-3.0 L (test code = 1925-7) Patient Temperature 36.7 (test code = 8310-5) FIO2 (test code = 1819) 21 Lab Interpretation Abnormal (test code = 48430-9) [facility] gas, [id number] 15:13:07 Test Item Value Reference Range Interpretation Comments pH, Arterial (test code 7.48 7.35-7.45 H = 2744-1) pCO2, Arterial (test 25 See_Comment L [Autom ated code = 2018-11) message] The system which generated this result transmitted reference range : 35 - 45 mm Hg. The reference range was not used to interpret this result as normal/abnormal . pO2, Arterial (test 123 See_Comment H [Automa amanda code = 2703-7) message] The system which generated this result transmitted reference range : 80 - 90 mm Hg. The reference range was not used to interpret this result as normal/abnormal . O2 Sat, Arterial (test 98.7 % 96.0-97.0 H code = 2708-6) HCO3, Arterial (test 18 mmol/L 21-29 L code = 1960-4) Base Excess, Arterial -4.3 mmol/L -2.0-3.0 L (test code = 1925-7) Patient Temperature 36.7 (test code = 8310-5) FIO2 (test code = 1819) 21 Lab Interpretation Abnormal (test code = 33653-0) [facility] gas, [id number] 15:13:07 Test Item Value Reference Range Interpretation Comments pH, Arterial (test code 7.48 7.35-7.45 H = 2744-1) pCO2, Arterial (test 25 See_Comment L [Autom ated code = 2018-11) message] The system which generated this result transmitted reference range : 35 - 45 mm Hg. The reference range was not used to interpret this result as normal/abnormal . pO2, Arterial (test 123 See_Comment H [Automa amanda code = 2703-7) message] The system which generated this result transmitted reference range : 80 - 90 mm Hg. The reference range was not used to interpret this result as normal/abnormal . O2 Sat, Arterial (test 98.7 % 96.0-97.0 H code = 2708-6) HCO3, Arterial (test 18 mmol/L 21-29 L code = 1960-4) Base Excess, Arterial -4.3 mmol/L -2.0-3.0 L (test code = 1925-7) Patient Temperature 36.7 (test code = 8310-5) FIO2 (test code = 1819) 21 Lab Interpretation Abnormal (test code = 47186-2) [facility] [id number] 15:13:07 Test Item Value Reference Range Interpretation Comments PH ARTERIAL (BEAKER) (test code = 7.48 7.35-7.45 H 383) PCO2 ARTERIAL (BEAKER) (test code 25 mm Hg 35-45 L = 384) PO2 ARTERIAL (BEAKER) (test code 123 mm Hg 80-90 H = 385) O2 SATURATION ARTERIAL (BEAKER) 98.7 % 96.0-97.0 H (test code = 386) HCO3 ARTERIAL (BEAKER) (test code 18 mmol/L 21-29 L = 388) BASE EXCESS ARTERIAL (BEAKER) -4.3 mmol/L -2.0-3.0 L (test code = 387) PATIENT TEMPERATURE (BEAKER) 36.7 (test code = 1818) FIO2 (BEAKER) (test code = 1819) 21.0 LIPID [id number] 14:40:41 Test Item Value Reference Range Interpretation Comments TRIGLYCERIDES (BEAKER) 130 mg/dL (test code = 540) CHOLESTEROL (BEAKER) 89 mg/dL (test code = 631) HDL CHOLESTEROL (BEAKER) < mg/dL (test code = 976) LDL CHOLESTEROL > mg/dL Unable to ca lculate CALCULATED (BEAKER) (test code = 633) Triglyceride Reference Range: Low Risk <150 Borderline 150-199 High Risk 200- 499 Very High Risk >=500Cholesterol Reference Range: Low Risk <200 Borderline 200-239 High Risk >240HDL Cholesterol Reference Range: Low Risk >=60 High Risk <40LDL Cholesterol Reference Range: Optimal <100 Near Optimal 100-129 Borderline 130-159 High 160-189 Very High >=190 Shopper Marketing Manager ID - MARCOSpecimenmarkedly ictericURIC [id number] 14:38:06 Test Item Value Reference Range Interpretation Comments URIC ACID (DANIEL) (test code = 6.0 mg/dL 2.6-7.2 773) Shopper Marketing Manager ID - MARCOSpecimen markedly ictericPOCT-GLUCOSE [id number] 11:23:40 Test Item Value Reference Range Interpretation Comments POC-GLUCOSE METER 109 mg/dL 70-110 : TESTED A T [facility] 6720 (DANIEL) (test code = [place], 1538) [address]: Shopper Marketing Manager/Techni shaunna ID = [id number] for [place], [place]abel CT, CHEST, WITHOUT [id number] 10:21:00Unlisted Reason for Exam - Click Yes and Enter Reason Below->[facility] 1970 Sex: FFINAL REPORT CT, CHEST, WITHOUT CONTRAST INDICATION: Cancer of unknown primary, staging COMPARISON: Abdominal MRI 05/16/2022 TECHNIQUE: CT, CHEST, WITHOUT CONTRAST. This exam was performed according to our departmental dose optimization program which includes automated exposure control, adjustment of the mA and/or kV according to patient size and/or use of iterative reconstruction technique. FINDINGS: Lungs: Peribronchovascular and subpleural patchy groundglass opacities in the bilateral upper lobes, with smaller groundglass opacities in the right middle lobe and left lower lobe. Trace right lower lobe atelectasis. A solid 0.8 x 1.0 cm nodule in the right middle lobe abutting the major and minor fissures. A calcified right middle lobe pulmonary nodule suggesting old granulomatous disease.Central airways: Patent.Pleura: Small right pleural effusion. No pneumothorax. Trace left pleural effusion.Lymph nodes: Suboptimal evaluation of the hilar lymph nodes without IV contrast. Otherwise unremarkableCardiovascular: UnremarkableThyroid gland: Visualized portion unremarkableEsophagus: UnremarkableIncluded upper abdomen: Cirrhosis with steatosis and confluent fibrosis. Trace ascites in the upper abdomen.Bones: Unremarkable. IMPRESSION: 1.Groundglass opacities bilaterally concerning for an atypical multifocal pneumonia. 2.Solid nodule in the right middle lobe measuring 1.0 x 0.8 cm, could be an intrapulmonary lymph node. Follow-up guidelines below. 2017 Fleischner Society Recommendations for Single Solid Lung Nodule Follow-Up based on size (average of long- and short-axis diameters) >8 mm Low-Risk Patient: Consider CT, PET/CT or tissue sampling at 3 months>8 mm High-Risk Patient: Same as for low-risk patient 3. Cirrhotic and fatty liver, small right and trace left pleural effusions and small volume free ascites. Signed: Charles Boothe [facility] Verified Date/Time: 05/18/2022 10:21:59Reading Location: [facility] C[address] Consult Reading Room (CELLAVISION MANUAL DIFF)2022-05-18 06:47:30 Test Item Value Reference Range Interpretation Comments NEUTROPHILS - REL 79 % (CELLAVISION)(BEAKER) (test code = 2816) LYMPHOCYTES - REL 7 % (CELLAVISION)(BEAKER) (test code = 2817) MONOCYTES - REL 5 % (CELLAVISION)(BEAKER) (test code = 2818) EOSINOPHILS - REL 3 % (CELLAVISION)(BEAKER) (test code = 2819) METAMYELOCYTES - REL 1 % 0-0 H (CELLAVISION)(BEAKER) (test code = 2821) BANDS - REL (CELLAVISION)(BEAKER) 5 % 0-10 (test code = 2826) NEUTROPHILS - ABS 14.22 K/ul 1.56-6.13 H (CELLAVISION)(BEAKER) (test code = 2830) LYMPHOCYTES - ABS 1.26 K/ul 1.18-3.74 (CELLAVISION)(BEAKER) (test code = 2831) MONOCYTES - ABS 0.90 K/uL 0.24-0.36 H (CELLAVISION)(BEAKER) (test code = 2832) EOSINOPHILS - ABS 0.54 K/uL 0.04-0.36 H (CELLAVISION)(BEAKER) (test code = 2834) METAMYELOCYTES - ABS 0.18 K/uL 0.00-0.00 H (CELLAVISION)(BEAKER) (test code = 2836) BANDS - ABS (CELLAVISION)(BEAKER) 0.90 K/uL 0.00-0.80 H (test code = 2840) TOTAL COUNTED (BEAKER) (test code 100 = 1351) WBC MORPHOLOGY (BEAKER) (test code Normal = 487) GIANT PLATELETS (BEAKER) (test Present code = 313) HYPOCHROMIA (BEAKER) (test code = 1+ few 963) ANISOCYTOSIS (BEAKER) (test code = 1+ few 961) MACROCYTES (BEAKER) (test code = 1+ few 964) POIKILOCYTES (BEAKER) (test code = 1+ few 966) OVALOCYTES (BEAKER) (test code = 1+ few 477) TEAR DROP CELLS (BEAKER) (test 1+ few code = 481) ARTIFACT (CELLAVISION)(BEAKER) Present (test code = 3432) HELMET CELLS (CELLAVISION)(BEAKER) 1+ few (test code = 3434) PLATELET CONCENTRATION Adequate (CELLAVISION)(BEAKER) (test code = 3438) Shopper Marketing Manager ID - Sandra Devine comments: Slide comments:CBC W/PLT COUNT & AUTO [id number] 06:47:29 Test Item Value Reference Range Interpretation Comments WHITE BLOOD CELL COUNT (BEAKER) 18.0 K/ L 3.5-10.5 H (test code = 775) RED BLOOD CELL COUNT (BEAKER) 2.26 M/ L 3.93-5.22 L (test code = 761) HEMOGLOBIN (BEAKER) (test code = 6.8 GM/DL 11.2-15.7 L 410) HEMATOCRIT (BEAKER) (test code = 20.9 % 34.1-44.9 L 411) MEAN CORPUSCULAR VOLUME (BEAKER) 93 fL 79-95 (test code = 753) MEAN CORPUSCULAR HEMOGLOBIN 30.1 pg 25.6-32.2 (BEAKER) (test code = 751) MEAN CORPUSCULAR HEMOGLOBIN CONC 32.5 GM/DL 32.2-35.5 (BEAKER) (test code = 752) RED CELL DISTRIBUTION WIDTH 19.7 % 11.7-14.4 H (BEAKER) (test code = 412) PLATELET COUNT (BEAKER) (test 201 K/CU MM 150-450 code = 756) MEAN PLATELET VOLUME (BEAKER) 11.5 fL 9.4-12.3 (test code = 754) NUCLEATED RED BLOOD CELLS 0 /100 WBC 0-0 (BEAKER) (test code = 413) BASIC METABOLIC [id number] 05:49:33 Test Item Value Reference Range Interpretation Comments SODIUM (BEAKER) 139 meq/L 136-145 (test code = 381) POTASSIUM 3.5 meq/L 3.5-5.1 (BEAKER) (test code = 379) CHLORIDE (BEAKER) 110 meq/L 98-107 H (test code = 382) CO2 (BEAKER) 20 meq/L 22-29 L (test code = 355) BLOOD UREA 32 mg/dL 7-21 H NITROGEN (BEAKER) (test code = 354) CREATININE 1.16 mg/dL 0.57-1.25 (BEAKER) (test code = 358) GLUCOSE RANDOM 112 mg/dL 70-105 H (BEAKER) (test code = 652) CALCIUM (BEAKER) 9.1 mg/dL 8.4-10.2 (test code = 697) EGFR (BEAKER) 57 Interpretatio n of eGFR (test code = mL/min/1.73 values Stage De scription 1092) sq m Result G1 Renetta l or high >=90 G2 Mildly decreased 60-89 G3a Mildl y to moderately 45-5 9 G3b Moderately to s everely 30-44 G4 Severl y decreased 15-29 G5 Kidney failure <15Reported eGF R is based on the CKD-EPI 2020 equation that d oes not use a race coefficientEsti mated GFR is not as accur ate as Creatinine Chiquita conklin in predicting glom erular filtration rate . Estimated GFR is not appl icable for dialysis patien ts Shopper Marketing Manager ID - Dinorah markedly ictericHEPATIC FUNCTION [id number] 05:49:33 Test Item Value Reference Range Interpretation Comments TOTAL PROTEIN (BEAKER) (test code 5.4 gm/dL 6.0-8.3 L = 770) ALBUMIN (BEAKER) (test code = 2.9 g/dL 3.5-5.0 L 1145) BILIRUBIN TOTAL (BEAKER) (test 17.6 mg/dL 0.2-1.2 H code = 377) BILIRUBIN DIRECT (BEAKER) (test 11.9 mg/dL 0.1-0.5 H code = 706) ALKALINE PHOSPHATASE (BEAKER) 216 U/L 40-150 H (test code = 346) AST (SGOT) (BEAKER) (test code = 166 U/L 5-34 H 353) ALT (SGPT) (BEAKER) (test code = 74 U/L 6-55 H 347) Shopper Marketing Manager ID - Dinorah markedly ictericPrepare [id number] 23:54:00 Test Item Value Reference Range Interpretation Comments CROSSMATCH (test code = 2264) COMPATIBLE Unit ABO (test code = O Neg 7841343) UNIT NUMBER (test code = [id number] 934-0) Status (test code = 3461898) [facility] Blood [facility] Product (test code RED BLOOD CELLS = 2263) PRODUCT CODE (test code = S1913X16 933-2) [facility] [id number] 23:54:00 Test Item Value Reference Range Interpretation Comments CROSSMATCH (test code = 2264) COMPATIBLE Unit ABO (test code = O Neg [id number]) UNIT NUMBER (test code = [id number] 934-0) Status (test code = 8934274) TX_TIMEINCHART Blood Bank Product (test code RED BLOOD CELLS = 2263) PRODUCT CODE (test code = E5180P45 933-2) [facility] [id number] 23:54:00 Test Item Value Reference Range Interpretation Comments CROSSMATCH (test code = 2264) COMPATIBLE Unit ABO (test code = O Neg 6982332) UNIT NUMBER (test code = [id number] 934-0) Status (test code = 8353217) [facility] Blood Bank Product (test code RED BLOOD CELLS = 2263) PRODUCT CODE (test code = F2645W27 933-2) [facility] [id number] 22:22:17 Test Item Value Reference Range Interpretation Comments POC-GLUCOSE METER 122 mg/dL 70-110 H : TESTED A T [facility] 6720 (BEAKER) (test code = [facility], 1538) [address]: Shopper Marketing Manager/Techni shaunna ID = [id number] for Lilly Rico POCT-GLUCOSE [id number] 17:55:48 Test Item Value Reference Range Interpretation Comments POC-GLUCOSE METER 120 mg/dL 70-110 H : TESTED A T [facility] 6720 (BEAKER) (test code = [facility], 153) [address]: Shopper Marketing Manager/Techni shaunna ID = [id number] for SA NTOS, SABINO 2D Echo W/Doppler(CW/PW/Color)2022-05-17 16:53:14Ejection FractionSLEH ECHO HEARTLAB [facility] Echo W/Doppler(CW/PW/Color)2022-05-17 16:53:14Ejection FractionSLEH ECHO HEARTLAB [facility] Echo W/Doppler(CW/PW/Color) 2022-05-17 16:53:14Ejection FractionSLE ECHO [facility]LAB [facility] [id number] 13:33:20 Test Item Value Reference Range Interpretation Comments POC-GLUCOSE METER 112 mg/dL 70-110 H : TESTED A T [facility] 6720 (BEAKER) (test code = [facility], 153) [address]: Shopper Marketing Manager/Techni shaunna ID = [id number] for SA NTOS, SABINO ANTI-NUCLEAR ANTIBODY (MORENITA)2022-05-17 12:56:04 Test Item Value Reference Range Interpretation Comments ANTI-NUCLEAR ANTIBODY (MORENITA) (AKER) Negative Negative (test code = 418) Test performed by IFA method.Test performed by IFA method.ALPHA FETOPROTEIN (AFP), TUMOR [id number] 12:13:34 Test Item Value Reference Range Interpretation Comments ALPHA-FETOPROTEIN (BEAKER) (test 2.5 ng/mL <10.0 code = 1094) Shopper Marketing Manager ID - ADMINPROTHROMBIN TIME/[id number] 10:04:27 Test Item Value Reference Range Interpretation Comments PROTIME (BEAKER) (test code = 17.2 seconds 11.9-14.2 H 759) INR (BEAKER) (test code = 370) 1.50 <=5.90 RECOMMENDED COUMADIN/WARFARIN INR THERAPY RANGESSTANDARD DOSE: 2.0 - 3.0 Includes: PROPHYLAXIS for venous thrombosis, systemic embolization; TREATMENT for venous thrombosis and/or pulmonary embolus.HIGH RISK: Target INR is 2.5-3.5 for patients with mechanical heart valves.POCT-GLUCOSE [id number] 08:06:33 Test Item Value Reference Range Interpretation Comments POC-GLUCOSE METER 112 mg/dL 70-110 H : TESTED A T [facility] 6720 (BEAKER) (test code = [place], 1538) [address]: Shopper Marketing Manager/Techni shaunna ID = [id number] for SABINO LOGAN (CELLAVISION MANUAL DIFF)2022-05-17 07:02:06 Test Item Value Reference Range Interpretation Comments NEUTROPHILS - REL 81 % (CELLAVISION)(BEAKER) (test code = 2816) LYMPHOCYTES - REL 7 % (CELLAVISION)(BEAKER) (test code = 2817) MONOCYTES - REL 2 % (CELLAVISION)(BEAKER) (test code = 2818) EOSINOPHILS - REL 1 % (CELLAVISION)(BEAKER) (test code = 2819) BASOPHILS - REL 1 % (CELLAVISION)(BEAKER) (test code = 2820) BANDS - REL (CELLAVISION)(BEAKER) 7 % 0-10 (test code = 2826) ATYPICAL LYMPHOCYTES - REL 1 % 0-0 H (CELLAVISION)(BEAKER) (test code = 2829) NEUTROPHILS - ABS 15.55 K/ul 1.56-6.13 H (CELLAVISION)(BEAKER) (test code = 2830) LYMPHOCYTES - ABS 1.34 K/ul 1.18-3.74 (CELLAVISION)(BEAKER) (test code = 2831) MONOCYTES - ABS 0.38 K/uL 0.24-0.36 H (CELLAVISION)(BEAKER) (test code = 2832) EOSINOPHILS - ABS 0.19 K/uL 0.04-0.36 (CELLAVISION)(BEAKER) (test code = 2834) BASOPHILS - ABS 0.19 K/uL 0.01-0.08 H (CELLAVISION)(BEAKER) (test code = 2835) BANDS - ABS (CELLAVISION)(BEAKER) 1.34 K/uL 0.00-0.80 H (test code = 2840) ATYPICAL LYMPHOCYTES - ABS 0.19 K/uL 0.00-0.00 H (CELLAVISION)(BEAKER) (test code = 2858) TOTAL COUNTED (BEAKER) (test code 100 = 1351) PLT MORPHOLOGY (BEAKER) (test Normal code = 486) SMUDGE CELLS (BEAKER) (test code Present = 1371) HYPOCHROMIA (BEAKER) (test code = 2+ moderate 963) ANISOCYTOSIS (BEAKER) (test code 2+ moderate = 961) MACROCYTES (BEAKER) (test code = 2+ moderate 964) POIKILOCYTES (BEAKER) (test code 2+ moderate = 966) TARGET CELLS (BEAKER) (test code 1+ few = 480) OVALOCYTES (BEAKER) (test code = 1+ few 477) TEAR DROP CELLS (BEAKER) (test 1+ few code = 481) SARAH CELLS (BEAKER) (test code = 2+ moderate 474) PLATELET CONCENTRATION Adequate (CELLAVISION)(BEAKER) (test code = 3438) Shopper Marketing Manager ID - Micheal Dato-onUser comments: Slide comments:CBC W/PLT COUNT & AUTO [id number] 07:02:05 Test Item Value Reference Range Interpretation Comments WHITE BLOOD CELL COUNT (BEAKER) 19.2 K/ L 3.5-10.5 H (test code = 775) RED BLOOD CELL COUNT (BEAKER) 2.38 M/ L 3.93-5.22 L (test code = 761) HEMOGLOBIN (BEAKER) (test code = 7.2 GM/DL 11.2-15.7 L 410) HEMATOCRIT (BEAKER) (test code = 21.7 % 34.1-44.9 L 411) MEAN CORPUSCULAR VOLUME (BEAKER) 91 fL 79-95 (test code = 753) MEAN CORPUSCULAR HEMOGLOBIN 30.3 pg 25.6-32.2 (BEAKER) (test code = 751) MEAN CORPUSCULAR HEMOGLOBIN CONC 33.2 GM/DL 32.2-35.5 (BEAKER) (test code = 752) RED CELL DISTRIBUTION WIDTH 18.8 % 11.7-14.4 H (BEAKER) (test code = 412) PLATELET COUNT (BEAKER) (test 188 K/CU MM 150-450 code = 756) MEAN PLATELET VOLUME (BEAKER) 11.1 fL 9.4-12.3 (test code = 754) NUCLEATED RED BLOOD CELLS 0 /100 WBC 0-0 (BEAKER) (test code = 413) POCT-GLUCOSE [id number] 05:49:58 Test Item Value Reference Range Interpretation Comments POC-GLUCOSE METER 120 mg/dL 70-110 H : TESTED A T [facility] 6720 (BEAKER) (test code = [place], 1538) [address]: Shopper Marketing Manager/Techni shaunna ID = [id number] for JOANA KOROMA BASIC METABOLIC [id number] 05:24:51 Test Item Value Reference Range Interpretation Comments SODIUM (BEAKER) 137 meq/L 136-145 (test code = 381) POTASSIUM 3.6 meq/L 3.5-5.1 (BEAKER) (test code = 379) CHLORIDE (BEAKER) 107 meq/L 98-107 (test code = 382) CO2 (BEAKER) 20 meq/L 22-29 L (test code = 355) BLOOD UREA 34 mg/dL 7-21 H NITROGEN (BEAKER) (test code = 354) CREATININE 1.39 mg/dL 0.57-1.25 H (BEAKER) (test code = 358) GLUCOSE RANDOM 112 mg/dL 70-105 H (BEAKER) (test code = 652) CALCIUM (BEAKER) 9.1 mg/dL 8.4-10.2 (test code = 697) EGFR (BEAKER) 46 Interpretatio n of eGFR (test code = mL/min/1.73 values Stage De scription 1092) sq m Result G1 Renetta l or high >=90 G2 Mildly decreased 60-89 G3a Mildl y to moderately 45-5 9 G3b Moderately to s everely 30-44 G4 Severl y decreased 15-29 G5 Kidney failure <15Reported eGF R is based on the CKD-EPI 2020 equation that d oes not use a race coefficientEsti mated GFR is not as accur ate as Creatinine Chiquita rubin in predicting glom erular filtration rate . Estimated GFR is not appl icable for dialysis patien ts Shopper Marketing Manager ID - JENARO LSpecimen markedly ictericHEPATIC FUNCTION [id number] 05:24:51 Test Item Value Reference Range Interpretation Comments TOTAL PROTEIN (BEAKER) (test code 5.6 gm/dL 6.0-8.3 L = 770) ALBUMIN (BEAKER) (test code = 3.1 g/dL 3.5-5.0 L 1145) BILIRUBIN TOTAL (BEAKER) (test 17.3 mg/dL 0.2-1.2 H code = 377) BILIRUBIN DIRECT (BEAKER) (test 12.1 mg/dL 0.1-0.5 H code = 706) ALKALINE PHOSPHATASE (BEAKER) 225 U/L 40-150 H (test code = 346) AST (SGOT) (BEAKER) (test code = 179 U/L 5-34 H 353) ALT (SGPT) (BEAKER) (test code = 72 U/L 6-55 H 347) Shopper Marketing Manager ID - JENARO VILLAGOMEZpecimen markedly [id number] 05:09:12 Test Item Value Reference Range Interpretation Comments FIBRINOGEN LEVEL (BEAKER) (test 274 mg/dl 225-434 code = 658) POCT-GLUCOSE [id number] 21:37:37 Test Item Value Reference Range Interpretation Comments POC-GLUCOSE METER 118 mg/dL 70-110 H : TESTED A T [facility] 6720 (BEAKER) (test code = [place], 1538) [address]: Shopper Marketing Manager/Techni shaunna ID = [id number] for JOANA KOROMA POCT-GLUCOSE [id number] 12:13:56 Test Item Value Reference Range Interpretation Comments POC-GLUCOSE METER 157 mg/dL 70-110 H : TESTED A T [facility] 6720 (BEAKER) (test code ANIKET [place], = 1538) [address]: Shopper Marketing Manager/Techni shaunna ID = [id number] for CHINO STEPHENS Urine [id number] 10:49:02 Test Item Value Reference Range Interpretation Comments Result (test code = 6463-4) [id number] 10:49:02 Test Item Value Reference Range Interpretation Comments Result (test code = 6463-4) No growth [facility] [id number] 10:49:02 Test Item Value Reference Range Interpretation Comments Result (test code = 6463-4) No growth [facility] [id number] 10:39:20 Test Item Value Reference Range Interpretation Comments TOTAL PROTEIN (BEAKER) (test code 5.6 gm/dL 6.0-8.3 L = 770) ALBUMIN (BEAKER) (test code = 2.9 g/dL 3.5-5.0 L 1145) BILIRUBIN TOTAL (BEAKER) (test 18.7 mg/dL 0.2-1.2 H code = 377) BILIRUBIN DIRECT (BEAKER) (test 12.7 mg/dL 0.1-0.5 H code = 706) ALKALINE PHOSPHATASE (BEAKER) 268 U/L 40-150 H (test code = 346) AST (SGOT) (BEAKER) (test code = 200 U/L 5-34 H 353) ALT (SGPT) (BEAKER) (test code = 80 U/L 6-55 H 347) Shopper Marketing Manager ID - PIAYA LSpecimen markedly ictericBASIC METABOLIC [id number] 10:39:14 Test Item Value Reference Range Interpretation Comments SODIUM (BEAKER) 135 meq/L 136-145 L (test code = 381) POTASSIUM 3.7 meq/L 3.5-5.1 (BEAKER) (test code = 379) CHLORIDE (BEAKER) 105 meq/L 98-107 (test code = 382) CO2 (BEAKER) 20 meq/L 22-29 L (test code = 355) BLOOD UREA 37 mg/dL 7-21 H NITROGEN (BEAKER) (test code = 354) CREATININE 1.91 mg/dL 0.57-1.25 H (BEAKER) (test code = 358) GLUCOSE RANDOM 129 mg/dL 70-105 H (BEAKER) (test code = 652) CALCIUM (BEAKER) 9.1 mg/dL 8.4-10.2 (test code = 697) EGFR (BEAKER) 32 Interpretatio n of eGFR (test code = mL/min/1.73 values Stage De scription 1092) sq m Result G1 Renetta l or high >=90 G2 Mildly decreased 60-89 G3a Mildl y to moderately 45-5 9 G3b Moderately to s everely 30-44 G4 Severl y decreased 15-29 G5 Kidney failure <15Reported eGF R is based on the CKD-EPI 2020 equation that d oes not use a race coefficientEsti mated GFR is not as accur ate as Creatinine Chiquita rubin in predicting glom erular filtration rate . Estimated GFR is not appl icable for dialysis patien ts Shopper Marketing Manager ID - JENARO LSpecimen markedly ictericB-TYPE NATRIURETIC FACTOR (BNP) 2022-05-16 10:38:15 Test Item Value Reference Range Interpretation Comments B-TYPE NATRIURETIC PEPTIDE (BEAKER) 928 pg/mL 0-100 H (test code = 700) Shopper Marketing Manager ID - JENARO L(CELLAVISION MANUAL DIFF)2022-05-16 10:32:56 Test Item Value Reference Range Interpretation Comments NEUTROPHILS - REL 77 % (CELLAVISION)(BEAKER) (test code = 2816) LYMPHOCYTES - REL 9 % (CELLAVISION)(BEAKER) (test code = 2817) MONOCYTES - REL 7 % (CELLAVISION)(BEAKER) (test code = 2818) METAMYELOCYTES - REL 1 % 0-0 H (CELLAVISION)(BEAKER) (test code = 2821) MYELOCYTES - REL 2 % 0-0 H (CELLAVISION)(BEAKER) (test code = 2822) PROMYELOCYTES - REL 1 % 0-0 H (CELLAVSION)(BEAKER) (test code = 2825) BANDS - REL (CELLAVISION)(BEAKER) 3 % 0-10 (test code = 2826) NEUTROPHILS - ABS 14.63 K/ul 1.56-6.13 H (CELLAVISION)(BEAKER) (test code = 2830) LYMPHOCYTES - ABS 1.71 K/ul 1.18-3.74 (CELLAVISION)(BEAKER) (test code = 2831) MONOCYTES - ABS 1.33 K/uL 0.24-0.36 H (CELLAVISION)(BEAKER) (test code = 2832) METAMYELOCYTES - ABS 0.19 K/uL 0.00-0.00 H (CELLAVISION)(BEAKER) (test code = 2836) MYELOCYTES-ABS 0.38 K/uL 0.00-0.00 H (CELLAVISION)(BEAKER) (test code = 2837) PROMYELOCYTES - ABS 0.19 K/uL 0.00-0.00 H (CELLAVISION)(BEAKER) (test code = 2838) BANDS - ABS (CELLAVISION)(BEAKER) 0.57 K/uL 0.00-0.80 (test code = 2840) TOTAL COUNTED (BEAKER) (test code 100 = 1351) MANUAL NRBC PER 100 CELLS 1 /100 WBC 0-0 H (BEAKER) (test code = 1353) WBC MORPHOLOGY (BEAKER) (test Normal code = 487) CLUMPED PLATELETS (BEAKER) (test Present code = 436) GIANT PLATELETS (BEAKER) (test Present code = 313) ANISOCYTOSIS (BEAKER) (test code 3+ many = 961) MACROCYTES (BEAKER) (test code = 3+ many 964) POIKILOCYTES (BEAKER) (test code 2+ moderate = 966) TARGET CELLS (BEAKER) (test code 1+ few = 480) OVALOCYTES (BEAKER) (test code = 1+ few 477) ARTIFACT (CELLAVISION)(BEAKER) Present (test code = 3432) PLATELET CONCENTRATION Adequate (CELLAVISION)(BEAKER) (test code = 3438) Shopper Marketing Manager ID - wyatt Rubio comments: Slide comments:CBC W/PLT COUNT & AUTO [id number] 10:32:55 Test Item Value Reference Range Interpretation Comments WHITE BLOOD CELL COUNT (BEAKER) 19.0 K/ L 3.5-10.5 H (test code = 775) RED BLOOD CELL COUNT (BEAKER) 2.19 M/ L 3.93-5.22 L (test code = 761) HEMOGLOBIN (BEAKER) (test code = 6.7 GM/DL 11.2-15.7 L 410) HEMATOCRIT (BEAKER) (test code = 19.5 % 34.1-44.9 L 411) MEAN CORPUSCULAR VOLUME (BEAKER) 89 fL 79-95 (test code = 753) MEAN CORPUSCULAR HEMOGLOBIN 30.6 pg 25.6-32.2 (BEAKER) (test code = 751) MEAN CORPUSCULAR HEMOGLOBIN CONC 34.4 GM/DL 32.2-35.5 (BEAKER) (test code = 752) RED CELL DISTRIBUTION WIDTH 18.9 % 11.7-14.4 H (BEAKER) (test code = 412) PLATELET COUNT (BEAKER) (test 206 K/CU MM 150-450 code = 756) MEAN PLATELET VOLUME (BEAKER) 10.5 fL 9.4-12.3 (test code = 754) NUCLEATED RED BLOOD CELLS 0 /100 WBC 0-0 (BEAKER) (test code = 413) [id number] 10:20:35 Test Item Value Reference Range Interpretation Comments PROTIME (BEAKER) (test code = 17.0 seconds 11.9-14.2 H 759) INR (BEAKER) (test code = 370) 1.42 <=5.90 PARTIAL THROMBOPLASTIN TIME 41.4 seconds 22.5-36.0 H (BEAKER) (test code = 760) RECOMMENDED COUMADIN/WARFARIN INR THERAPY RANGESSTANDARD DOSE: 2.0 - 3.0 Includes: PROPHYLAXIS for venous thrombosis, systemic embolization; TREATMENT for venous thrombosis and/or pulmonary embolus.HIGH RISK: Target INR is 2.5-3.5 for patients with mechanical heart valves.[id number] 10:20:13 Test Item Value Reference Range Interpretation Comments FIBRINOGEN LEVEL (BEAKER) (test 309 mg/dl 225-434 code = 658) PROTHROMBIN [id number] 10:19:57 Test Item Value Reference Range Interpretation Comments PROTIME (BEAKER) (test code = 17.0 seconds 11.9-14.2 H 759) INR (BEAKER) (test code = 370) 1.42 <=5.90 RECOMMENDED COUMADIN/WARFARIN INR THERAPY RANGESSTANDARD DOSE: 2.0 - 3.0 Includes: PROPHYLAXIS for venous thrombosis, systemic embolization; TREATMENT for venous thrombosis and/or pulmonary embolus.HIGH RISK: Target INR is 2.5-3.5 for patients with mechanical heart valves.POCT-GLUCOSE [id number] 07:02:49 Test Item Value Reference Range Interpretation Comments POC-GLUCOSE METER 118 mg/dL 70-110 H : TESTED A T [facility] 6720 (BEAKER) (test code = [facility] [employer] [facility], 1538) [address]: Shopper Marketing Manager/Techni shaunna ID = [id number] for SA GENAOABRAHAMJOANA POCT-GLUCOSE [id number] 03:01:03 Test Item Value Reference Range Interpretation Comments POC-GLUCOSE METER 124 mg/dL 70-110 H : TESTED A T [facility] 6720 (BEAKER) (test code = [employer] [facility], 1538) [address]: Shopper Marketing Manager/Techni shaunna ID = [id number] for SA GENAO, JOANA Eosinophil [id number] 21:40:23 Test Item Value Reference Range Interpretation Comments Eosinophil Smear (test code = No EOS seen No EOS seen 08260-8) Lab Interpretation (test code = Normal 87230-7) [facility] [place] [id number] 21:40:23 Test Item Value Reference Range Interpretation Comments Eosinophil Smear (test code = No EOS seen No EOS seen 86529-7) Lab Interpretation (test code = Normal 94519-0) [facility] [place] [id number] 21:40:23 Test Item Value Reference Range Interpretation Comments Eosinophil Smear (test code = No EOS seen No EOS seen 49851-4) Lab Interpretation (test code = Normal 26748-9) [facility] [place], [id number] 21:40:23 Test Item Value Reference Range Interpretation Comments EOSINOPHIL SMEAR, URINE (BEAKER) No EOS seen No EOS seen (test code = 1851) Sodium, random [id number] 21:26:47 Test Item Value Reference Range Interpretation Comments Sodium Urine (test <20 meq/L code = 2955-3) CA (test code = Reference Range: No CA) NormalsOperator ID - WYATT [facility] [id number] 21:26:47 Test Item Value Reference Range Interpretation Comments Sodium Urine (test <20 meq/L code = 2955-3) CA (test code = Reference Range: No CA) NormalsOperator ID - WYATT [facility] [id number] 21:26:47 Test Item Value Reference Range Interpretation Comments Sodium Urine (test <20 meq/L code = 2955-3) CA (test code = Reference Range: No CA) NormalsOperator ID - WYATT B [facility] Hospital[facility]UM, RANDOM [id number] 21:26:47 Test Item Value Reference Range Interpretation Comments SODIUM URINE (BEAKER) (test code = < meq/L 243) Reference Range: No NormalsOperator ID - WYATT BCreatinine, random urine 2022-05-15 21:24:01 Test Item Value Reference Range Interpretation Comments Creatinine, Ur 143.7 mg/dL (test code = 2161-8) CA (test code = Reference Range: No CA) NormalsOperator ID - WYATT B [facility] [place] [id number] 21:24:01 Test Item Value Reference Range Interpretation Comments Protein, Urine (test code 32 mg/dL 0-14 H = 2888-6) CA (test code = CA) Shopper Marketing Manager ID - WYATT B Lab Interpretation (test Abnormal code = 01288-1) [facility] [place] [id number] 21:24:01 Test Item Value Reference Range Interpretation Comments Creatinine, Ur 143.7 mg/dL (test code = 2161-8) CA (test code = Reference Range: No CA) NormalsOperator ID - WYATT B [facility] [place] [id number] 21:24:01 Test Item Value Reference Range Interpretation Comments Protein, Urine (test code 32 mg/dL 0-14 H = 2888-6) CA (test code = CA) Shopper Marketing Manager ID - WYATT B Lab Interpretation (test Abnormal code = 34202-5) [facility] [place] [id number] 21:24:01 Test Item Value Reference Range Interpretation Comments Creatinine, Ur 143.7 mg/dL (test code = 2161-8) CA (test code = Reference Range: No CA) NormalsOperator ID - WYATT B [facility] [place], random [id number] 21:24:01 Test Item Value Reference Range Interpretation Comments Protein, Urine (test code 32 mg/dL 0-14 H = 2888-6) CA (test code = CA) Shopper Marketing Manager ID - WYATT B Lab Interpretation (test Abnormal code = 15498-7) [facility] [place]AT[place], RANDOM [id number] 21:24:01 Test Item Value Reference Range Interpretation Comments CREATININE URINE (BEAKER) (test 143.7 mg/dL code = 375) Reference Range: No NormalsOperator ID - WYATT BPROTEIN, RANDOM [id number] 21:24:01 Test Item Value Reference Range Interpretation Comments PROTEIN, URINE (BEAKER) (test code = 32 mg/dL 0-14 H 1569) Shopper Marketing Manager ID - WYATT BPOCT-GLUCOSE [id number] 21:16:30 Test Item Value Reference Range Interpretation Comments POC-GLUCOSE METER 89 mg/dL 70-110 : TESTED A T [facility] 6720 (BEAKER) (test code = [facility] [employer] [facility], 1538) 95[address]: Shopper Marketing Manager/Techni shaunna ID = [id number] for SASU , JOANA POCT-GLUCOSE [id number] 18:39:35 Test Item Value Reference Range Interpretation Comments POC-GLUCOSE METER 115 mg/dL 70-110 H : TESTED A T [facility] 6720 (BEAKER) (test code = [facility] [employer] [facility], 1538) [address]: Shopper Marketing Manager/Techni shaunna ID = [id number] for SA NTOS, SABINO POCT-GLUCOSE [id number] 11:37:11 Test Item Value Reference Range Interpretation Comments POC-GLUCOSE METER 94 mg/dL 70-110 : TESTED A T [facility] 6720 (BEAKER) (test code = [facility] [employer] [facility], 1538) 7[address]: Shopper Marketing Manager/Techni shaunna ID = [id number] for MIRIAM CUELLAR, YAYA POCT-GLUCOSE [id number] 07:52:03 Test Item Value Reference Range Interpretation Comments POC-GLUCOSE METER 86 mg/dL 70-110 : TESTED A T [facility] 6720 (BEAKER) (test code = [facility] [employer] [facility], 1538) [address]: Shopper Marketing Manager/Techni shaunna ID = [id number] for YAYA DUNAWAY (CELLAVISION MANUAL DIFF)2022-05-15 06:43:38 Test Item Value Reference Range Interpretation Comments NEUTROPHILS - REL 73 % (CELLAVISION)(BEAKER) (test code = 2816) LYMPHOCYTES - REL 8 % (CELLAVISION)(BEAKER) (test code = 2817) MONOCYTES - REL 8 % (CELLAVISION)(BEAKER) (test code = 2818) MYELOCYTES - REL 2 % 0-0 H (CELLAVISION)(BEAKER) (test code = 2822) PROMYELOCYTES - REL 1 % 0-0 H (CELLAVSION)(BEAKER) (test code = 2825) BANDS - REL (CELLAVISION)(BEAKER) 8 % 0-10 (test code = 2826) NEUTROPHILS - ABS 14.53 K/ul 1.56-6.13 H (CELLAVISION)(BEAKER) (test code = 2830) LYMPHOCYTES - ABS 1.59 K/ul 1.18-3.74 (CELLAVISION)(BEAKER) (test code = 2831) MONOCYTES - ABS 1.59 K/uL 0.24-0.36 H (CELLAVISION)(BEAKER) (test code = 2832) MYELOCYTES-ABS 0.40 K/uL 0.00-0.00 H (CELLAVISION)(BEAKER) (test code = 2837) PROMYELOCYTES - ABS 0.20 K/uL 0.00-0.00 H (CELLAVISION)(BEAKER) (test code = 2838) BANDS - ABS (CELLAVISION)(BEAKER) 1.59 K/uL 0.00-0.80 H (test code = 2840) TOTAL COUNTED (BEAKER) (test code 100 = 1351) MANUAL NRBC PER 100 CELLS 1 /100 WBC 0-0 H (BEAKER) (test code = 1353) PLT MORPHOLOGY (BEAKER) (test Normal code = 486) SMUDGE CELLS (BEAKER) (test code Present = 1371) ANISOCYTOSIS (BEAKER) (test code 3+ many = 961) MACROCYTES (BEAKER) (test code = 3+ many 964) POIKILOCYTES (BEAKER) (test code 3+ many = 966) TARGET CELLS (BEAKER) (test code 2+ moderate = 480) OVALOCYTES (BEAKER) (test code = 3+ many 477) SARAH CELLS (BEAKER) (test code = 3+ many 474) PLATELET CONCENTRATION Adequate (CELLAVISION)(BEAKER) (test code = 3438) Shopper Marketing Manager ID - Mena comments: Slide comments:CBC W/PLT COUNT & AUTO [id number] 06:43:37 Test Item Value Reference Range Interpretation Comments WHITE BLOOD CELL COUNT (BEAKER) 19.9 K/ L 3.5-10.5 H (test code = 775) RED BLOOD CELL COUNT (BEAKER) 2.43 M/ L 3.93-5.22 L (test code = 761) HEMOGLOBIN (BEAKER) (test code = 7.4 GM/DL 11.2-15.7 L 410) HEMATOCRIT (BEAKER) (test code = 21.6 % 34.1-44.9 L 411) MEAN CORPUSCULAR VOLUME (BEAKER) 89 fL 79-95 (test code = 753) MEAN CORPUSCULAR HEMOGLOBIN 30.5 pg 25.6-32.2 (BEAKER) (test code = 751) MEAN CORPUSCULAR HEMOGLOBIN CONC 34.3 GM/DL 32.2-35.5 (BEAKER) (test code = 752) RED CELL DISTRIBUTION WIDTH 18.5 % 11.7-14.4 H (BEAKER) (test code = 412) PLATELET COUNT (BEAKER) (test 232 K/CU MM 150-450 code = 756) MEAN PLATELET VOLUME (BEAKER) 10.5 fL 9.4-12.3 (test code = 754) NUCLEATED RED BLOOD CELLS 0 /100 WBC 0-0 (BEAKER) (test code = 413) BASIC METABOLIC [id number] 06:17:08 Test Item Value Reference Range Interpretation Comments SODIUM (BEAKER) 133 meq/L 136-145 L (test code = 381) POTASSIUM 3.9 meq/L 3.5-5.1 (BEAKER) (test code = 379) CHLORIDE (BEAKER) 105 meq/L 98-107 (test code = 382) CO2 (BEAKER) 18 meq/L 22-29 L (test code = 355) BLOOD UREA 41 mg/dL 7-21 H NITROGEN (BEAKER) (test code = 354) CREATININE 2.30 mg/dL 0.57-1.25 H (BEAKER) (test code = 358) GLUCOSE RANDOM 89 mg/dL 70-105 (BEAKER) (test code = 652) CALCIUM (BEAKER) 8.5 mg/dL 8.4-10.2 (test code = 697) EGFR (BEAKER) 25 Interpretatio n of eGFR (test code = mL/min/1.73 values Stage De scription 1092) sq m Result G1 Renetta l or high >=90 G2 Mildly decreased 60-89 G3a Mildl y to moderately 45-5 9 G3b Moderately to s everely 30-44 G4 Severl y decreased 15-29 G5 Kidney failure <15Reported eGF R is based on the CKD-EPI 2020 equation that d oes not use a race coefficientEsti mated GFR is not as accur ate as Creatinine Chiquita rubin in predicting glom erular filtration rate . Estimated GFR is not appl icable for dialysis patien ts Shopper Marketing Manager ID - JENARO LSpecimen markedly ictericHEPATIC FUNCTION [id number] 06:15:46 Test Item Value Reference Range Interpretation Comments TOTAL PROTEIN (BEAKER) (test code 5.2 gm/dL 6.0-8.3 L = 770) ALBUMIN (BEAKER) (test code = 2.1 g/dL 3.5-5.0 L 1145) BILIRUBIN TOTAL (BEAKER) (test 17.4 mg/dL 0.2-1.2 H code = 377) BILIRUBIN DIRECT (BEAKER) (test 12.0 mg/dL 0.1-0.5 H code = 706) ALKALINE PHOSPHATASE (BEAKER) 340 U/L 40-150 H (test code = 346) AST (SGOT) (BEAKER) (test code = 200 U/L 5-34 H 353) ALT (SGPT) (BEAKER) (test code = 77 U/L 6-55 H 347) Shopper Marketing Manager ID - JENARO LSpecimen markedly ictericPT/[id number] 05:57:41 Test Item Value Reference Range Interpretation Comments PROTIME (BEAKER) (test code = 16.7 seconds 11.9-14.2 H 759) INR (BEAKER) (test code = 370) 1.44 <=5.90 PARTIAL THROMBOPLASTIN TIME 39.8 seconds 22.5-36.0 H (BEAKER) (test code = 760) RECOMMENDED COUMADIN/WARFARIN INR THERAPY RANGESSTANDARD DOSE: 2.0 - 3.0 Includes: PROPHYLAXIS for venous thrombosis, systemic embolization; TREATMENT for venous thrombosis and/or pulmonary embolus.HIGH RISK: Target INR is 2.5-3.5 for patients with mechanical heart valves.[id number] 05:57:15 Test Item Value Reference Range Interpretation Comments FIBRINOGEN LEVEL (DANIEL) (test 349 mg/dl 225-434 code = 658) POCT-GLUCOSE [id number] 05:54:15 Test Item Value Reference Range Interpretation Comments POC-GLUCOSE METER 84 mg/dL 70-110 : TESTED A T [facility] 67[facility] ([facility]) (test code = [facility], 1538) [id number]: Shopper Marketing Manager/Techni shaunna ID = [id number] for ROBIN PARRA POCT-GLUCOSE [id number] 04:11:29 Test Item Value Reference Range Interpretation Comments POC-GLUCOSE METER 81 mg/dL 70-110 : TESTED A T [facility] ([facility]) (test code = [facility], 1538) [id number]: [employer]pper Marketing Manager/Techni shaunna ID = [id number] for MICHELLE SDAVYN Osmolality, [id number] 03:17:19 Test Item Value Reference Range Interpretation Comments Osmolality, Ur (test code 385 See_Comment [ Automated message] = 2695-5) The system [employer] generated this result transmitted ref erence range: 50-1,200 mOsm/kg mOsm/kg . The reference range was not used to int erpret this result as normal/abnormal . Lab Interpretation (test Normal code = 35964-9) [facility] [place] [id number] 03:17:19 Test Item Value Reference Range Interpretation Comments Osmolality, Ur (test code 385 See_Comment [ Automated message] = 2695-5) The system [employer] generated this result transmitted ref erence range: 50-1,200 mOsm/kg mOsm/kg . The reference range was not used to int erpret this result as normal/abnormal . Lab Interpretation (test Normal code = 37478-8) [facility] [place], [id number] 03:17:19 Test Item Value Reference Range Interpretation Comments Osmolality, Ur (test code 385 See_Comment [ Automated message] = 2695-5) The system whic h generated this result transmitted ref erence range: 50-1,200 mOsm/kg mOsm/kg . The reference range was not used to int erpret this result as normal/abnormal . Lab Interpretation (test Normal code = 72732-9) [facility] [place], [id number] 03:17:19 Test Item Value Reference Range Interpretation Comments OSMOLALITY URINE 385 mOsm/kg See_Comment [Automated message] (BEAKER) (test code = The sy stem which 614) generated this result transmitted ref erence range: 50-1,200 mOsm/kg. The reference range was not used to int erpret this result as normal/abnormal . Urinalysis w/[id number] 02:46:37 Test Item Value Reference Range Interpretation Comments Color, UA (test code Brown = 5778-6) Clarity, UA (test Hazy code = 5767-9) Specific [place], UA 1.022 1.001-1.035 (test code = 5811-5) pH, UA (test code = 6.0 5.0-8.0 5803-2) Protein, UA (test 70 mg/dL Negative A code = 03235-9) Glucose, UA (test 30 mg/dL Negative A code = 365) Ketones, UA (test Trace Negative A code = 2514-8) Bilirubin, UA (test Positive Negative A code = 99951-7) Blood, UA (test code Trace Negative A = 99650-7) Nitrite, UA (test Negative Negative code = 5802-4) Leukocytes, UA (test Negative Negative code = 5799-2) Urobilinogen, UA 4 0.2-1.0 H (test code = 24832-2) RBC, UA (test code = 4 See_Comment [Autom ated 62572-1) message] The system which generated this result transmitted reference range : /HPF. The reference range was not used to interpret this result as normal/abnormal . WBC, UA (test code = 18 See_Comment [Autom ated 5821-4) message] The system which generated this result transmitted reference range : /HPF. The reference range was not used to interpret this result as normal/abnormal . Bacteria, UA (test Rare code = 03416-7) Mucus (test code = Rare 8247-9) Squam Epithel, UA 2 See_Comment [Automate d (test code = 34545-5) messag e] The system which generated this result transmitted reference range : /HPF. The reference range was not used to interpret this result as normal/abnormal . Hyaline Casts, UA 4 See_Comment [Automate d (test code = 26102-1) messag e] The system which generated this result transmitted reference range : /LPF. The reference range was not used to interpret this result as normal/abnormal . Crystals, Urine (test Occasional None Seen A code = 19045-8) Yeast (test code = Occasional 66813-3) Specimen Source (test Urine, Clean code = 2795) Catch CA (test code = CA) Shopper Marketing Manager ID - tech Lab Interpretation Abnormal (test code = 07199-7) [facility] [place]/Pzxzoeeqvfj1477-97-81 02:46:37 Test Item Value Reference Range Interpretation Comments Color, UA (test code Brown = 5778-6) Clarity, UA (test Hazy code = 5767-9) Specific [place], UA 1.022 1.001-1.035 (test code = 5811-5) pH, UA (test code = 6.0 5.0-8.0 5803-2) Protein, UA (test 70 mg/dL Negative A code = 99621-3) Glucose, UA (test 30 mg/dL Negative A code = 365) Ketones, UA (test Trace Negative A code = 2514-8) Bilirubin, UA (test Positive Negative A code = 58871-7) Blood, UA (test code Trace Negative A = 97258-0) Nitrite, UA (test Negative Negative code = 5802-4) Leukocytes, UA (test Negative Negative code = 5799-2) Urobilinogen, UA 4 0.2-1.0 H (test code = 99745-0) RBC, UA (test code = 4 See_Comment [Autom ated 16553-9) message] The system which generated this result transmitted reference range : /HPF. The reference range was not used to interpret this result as normal/abnormal . WBC, UA (test code = 18 See_Comment [Autom ated 5821-4) message] The system which generated this result transmitted reference range : /HPF. The reference range was not used to interpret this result as normal/abnormal . Bacteria, UA (test Rare code = 75428-3) Mucus (test code = Rare 8247-9) Squam Epithel, UA 2 See_Comment [Automate d (test code = 08907-7) messag e] The system which generated this result transmitted reference range : /HPF. The reference range was not used to interpret this result as normal/abnormal . Hyaline Casts, UA 4 See_Comment [Automate d (test code = 47302-9) messag e] The system which generated this result transmitted reference range : /LPF. The reference range was not used to interpret this result as normal/abnormal . Crystals, Urine (test Occasional None Seen A code = 68038-8) Yeast (test code = Occasional 15363-3) Specimen Source (test Urine, Clean code = 2795) Catch CA (test code = CA) Shopper Marketing Manager ID - tech Lab Interpretation Abnormal (test code = 81427-4) [facility] [place] [place]/Ervslywmvhn1817-63-31 02:46:37 Test Item Value Reference Range Interpretation Comments Color, UA (test code Brown = 5778-6) Clarity, UA (test Hazy code = 5767-9) Specific [place], UA 1.022 1.001-1.035 (test code = 5811-5) pH, UA (test code = 6.0 5.0-8.0 5803-2) Protein, UA (test 70 mg/dL Negative A code = 05034-9) Glucose, UA (test 30 mg/dL Negative A code = 365) Ketones, UA (test Trace Negative A code = 2514-8) Bilirubin, UA (test Positive Negative A code = 52523-8) Blood, UA (test code Trace Negative A = 38533-5) Nitrite, UA (test Negative Negative code = 5802-4) Leukocytes, UA (test Negative Negative code = 5799-2) Urobilinogen, UA 4 0.2-1.0 H (test code = 63813-1) RBC, UA (test code = 4 See_Comment [Autom ated 66732-9) message] The system which generated this result transmitted reference range : /HPF. The reference range was not used to interpret this result as normal/abnormal . WBC, UA (test code = 18 See_Comment [Autom ated 5821-4) message] The system which generated this result transmitted reference range : /HPF. The reference range was not used to interpret this result as normal/abnormal . Bacteria, UA (test Rare code = 48427-5) Mucus (test code = Rare 8247-9) Squam Epithel, UA 2 See_Comment [Automate d (test code = 24927-9) messag e] The system which generated this result transmitted reference range : /HPF. The reference range was not used to interpret this result as normal/abnormal . Hyaline Casts, UA 4 See_Comment [Automate d (test code = 72166-3) messag e] The system which generated this result transmitted reference range : /LPF. The reference range was not used to interpret this result as normal/abnormal . Crystals, Urine (test Occasional None Seen A code = 60331-9) Yeast (test code = Occasional 75331-7) Specimen Source (test Urine, Clean code = 2795) Catch CA (test code = CA) Shopper Marketing Manager ID - tech Lab Interpretation Abnormal (test code = 50489-3) [facility] [place]/ [id number] 02:46:37 Test Item Value Reference Range Interpretation Comments COLOR (BEAKER) (test code Brown = 470) CLARITY (BEAKER) (test Hazy code = 469) SPECIFIC GRAVITY UA 1.022 1.001-1.035 (BEAKER) (test code = 468) PH UA (BEAKER) (test code 6.0 5.0-8.0 = 467) PROTEIN UA (BEAKER) (test 70 mg/dL Negative A code = 464) GLUCOSE UA (BEAKER) (test 30 mg/dL Negative A code = 365) KETONES UA (BEAKER) (test Trace Negative A code = 371) BILIRUBIN UA (BEAKER) Positive Negative A (test code = 462) BLOOD UA (BEAKER) (test Trace Negative A code = 461) NITRITE UA (BEAKER) (test Negative Negative code = 465) LEUKOCYTE ESTERASE UA Negative Negative (BEAKER) (test code = 466) UROBILINOGEN UA (BEAKER) 4 0.2-1.0 H (test code = 463) RBC UA (BEAKER) (test code 4 /HPF = 519) WBC UA (BEAKER) (test code 18 /HPF = 520) BACTERIA (BEAKER) (test Rare code = 517) MUCUS (BEAKER) (test code Rare = 1574) SQUAMOUS EPITHELIAL 2 /HPF (BEAKER) (test code = 516) HYALINE CASTS (BEAKER) 4 /LPF (test code = 514) CRYSTALS, URINE (BEAKER) Occasional None Seen A (test code = 1521) YEAST (BEAKER) (test code Occasional = 1585) SOURCE(BEAKER) (test code Urine, Clean Catch = 2795) Shopper Marketing Manager ID - techUrinalysis w/Microscopic + Reflex to [id number] 02:46:31 Test Item Value Reference Range Interpretation Comments Color, UA (test code Brown = 5778-6) Clarity, UA (test Hazy code = 5767-9) Specific [place], UA 1.022 1.001-1.035 (test code = 5811-5) pH, UA (test code = 6.0 5.0-8.0 5803-2) Protein, UA (test 70 mg/dL Negative A code = 74281-4) Glucose, UA (test 30 mg/dL Negative A code = 365) Ketones, UA (test Trace Negative A code = 2514-8) Bilirubin, UA (test Positive Negative A code = 74028-2) Blood, UA (test code Trace Negative A = 67175-0) Nitrite, UA (test Negative Negative code = 5802-4) Leukocytes, UA (test Negative Negative code = 5799-2) Urobilinogen, UA 4 0.2-1.0 H (test code = 78814-4) RBC, UA (test code = 4 See_Comment [Autom ated 43613-8) message] The system which generated this result transmitted reference range : /HPF. The reference range was not used to interpret this result as normal/abnormal . WBC, UA (test code = 18 See_Comment [Autom ated 5821-4) message] The system which generated this result transmitted reference range : /HPF. The reference range was not used to interpret this result as normal/abnormal . Bacteria, UA (test Rare code = 88715-1) Mucus (test code = Rare 8247-9) Squam Epithel, UA 2 See_Comment [Automate d (test code = 44103-2) messag e] The system which generated this result transmitted reference range : /HPF. The reference range was not used to interpret this result as normal/abnormal . Hyaline Casts, UA 4 See_Comment [Automate d (test code = 15949-8) messag e] The system which generated this result transmitted reference range : /LPF. The reference range was not used to interpret this result as normal/abnormal . Crystals, Urine (test Occasional None Seen A code = 80971-7) Yeast (test code = Occasional 79359-6) Specimen Source (test Urine, Clean code = 2795) Catch CA (test code = CA) Shopper Marketing Manager ID - [auto] Lab Interpretation Abnormal (test code = 92431-4) [facility] [place]/Microscopic + Reflex to Culture 2022-05-15 02:46:31 Test Item Value Reference Range Interpretation Comments Color, UA (test code Brown = 5778-6) Clarity, UA (test Hazy code = 5767-9) Specific [place], UA 1.022 1.001-1.035 (test code = 5811-5) pH, UA (test code = 6.0 5.0-8.0 5803-2) Protein, UA (test 70 mg/dL Negative A code = 89493-2) Glucose, UA (test 30 mg/dL Negative A code = 365) Ketones, UA (test Trace Negative A code = 2514-8) Bilirubin, UA (test Positive Negative A code = 14383-9) Blood, UA (test code Trace Negative A = 27819-6) Nitrite, UA (test Negative Negative code = 5802-4) Leukocytes, UA (test Negative Negative code = 5799-2) Urobilinogen, UA 4 0.2-1.0 H (test code = 23823-4) RBC, UA (test code = 4 See_Comment [Autom ated 52149-7) message] The system which generated this result transmitted reference range : /HPF. The reference range was not used to interpret this result as normal/abnormal . WBC, UA (test code = 18 See_Comment [Autom ated 5821-4) message] The system which generated this result transmitted reference range : /HPF. The reference range was not used to interpret this result as normal/abnormal . Bacteria, UA (test Rare code = 31039-1) Mucus (test code = Rare 8247-9) Squam Epithel, UA 2 See_Comment [Automate d (test code = 18523-8) messag e] The system which generated this result transmitted reference range : /HPF. The reference range was not used to interpret this result as normal/abnormal . Hyaline Casts, UA 4 See_Comment [Automate d (test code = 33043-3) messag e] The system which generated this result transmitted reference range : /LPF. The reference range was not used to interpret this result as normal/abnormal . Crystals, Urine (test Occasional None Seen A code = 86072-5) Yeast (test code = Occasional 27928-3) Specimen Source (test Urine, Clean code = 2795) Catch CA (test code = CA) Shopper Marketing Manager ID - [auto] Lab Interpretation Abnormal (test code = 96579-0) [facility] [place] [place]/Microscopic + Reflex to Culture 2022-05-15 02:46:31 Test Item Value Reference Range Interpretation Comments Color, UA (test code Brown = 5778-6) Clarity, UA (test Hazy code = 5767-9) Specific [place], UA 1.022 1.001-1.035 (test code = 5811-5) pH, UA (test code = 6.0 5.0-8.0 5803-2) Protein, UA (test 70 mg/dL Negative A code = 13148-2) Glucose, UA (test 30 mg/dL Negative A code = 365) Ketones, UA (test Trace Negative A code = 2514-8) Bilirubin, UA (test Positive Negative A code = 95145-3) Blood, UA (test code Trace Negative A = 09017-4) Nitrite, UA (test Negative Negative code = 5802-4) Leukocytes, UA (test Negative Negative code = 5799-2) Urobilinogen, UA 4 0.2-1.0 H (test code = 68656-4) RBC, UA (test code = 4 See_Comment [Autom ated 90033-9) message] The system which generated this result transmitted reference range : /HPF. The reference range was not used to interpret this result as normal/abnormal . WBC, UA (test code = 18 See_Comment [Autom ated 5821-4) message] The system which generated this result transmitted reference range : /HPF. The reference range was not used to interpret this result as normal/abnormal . Bacteria, UA (test Rare code = 11806-7) Mucus (test code = Rare 8247-9) Squam Epithel, UA 2 See_Comment [Automate d (test code = 48833-7) messag e] The system which generated this result transmitted reference range : /HPF. The reference range was not used to interpret this result as normal/abnormal . Hyaline Casts, UA 4 See_Comment [Automate d (test code = 82559-5) messag e] The system which generated this result transmitted reference range : /LPF. The reference range was not used to interpret this result as normal/abnormal . Crystals, Urine (test Occasional None Seen A code = 02975-3) Yeast (test code = Occasional 27755-5) Specimen Source (test Urine, Clean code = 2795) Catch CA (test code = CA) Shopper Marketing Manager ID - [auto] Lab Interpretation Abnormal (test code = 51925-1) [facility] [place] [place]/ REFLEX URINE [id number] 02:46:31 Test Item Value Reference Range Interpretation Comments COLOR (BEAKER) (test code Brown = 470) CLARITY (BEAKER) (test Hazy code = 469) SPECIFIC GRAVITY UA 1.022 1.001-1.035 (BEAKER) (test code = 468) PH UA (BEAKER) (test code 6.0 5.0-8.0 = 467) PROTEIN UA (BEAKER) (test 70 mg/dL Negative A code = 464) GLUCOSE UA (BEAKER) (test 30 mg/dL Negative A code = 365) KETONES UA (BEAKER) (test Trace Negative A code = 371) BILIRUBIN UA (BEAKER) Positive Negative A (test code = 462) BLOOD UA (BEAKER) (test Trace Negative A code = 461) NITRITE UA (BEAKER) (test Negative Negative code = 465) LEUKOCYTE ESTERASE UA Negative Negative (BEAKER) (test code = 466) UROBILINOGEN UA (BEAKER) 4 0.2-1.0 H (test code = 463) RBC UA (BEAKER) (test code 4 /HPF = 519) WBC UA (BEAKER) (test code 18 /HPF = 520) BACTERIA (BEAKER) (test Rare code = 517) MUCUS (BEAKER) (test code Rare = 1574) SQUAMOUS EPITHELIAL 2 /HPF (BEAKER) (test code = 516) HYALINE CASTS (BEAKER) 4 /LPF (test code = 514) CRYSTALS, URINE (BEAKER) Occasional None Seen A (test code = 1521) YEAST (BEAKER) (test code Occasional = 1585) SOURCE(BEAKER) (test code Urine, Clean Catch = 2795) Shopper Marketing Manager ID - [auto]POCT-GLUCOSE [id number] 02:20:05 Test Item Value Reference Range Interpretation Comments POC-GLUCOSE METER 84 mg/dL 70-110 : TESTED A T [facility] 6720 (BEAKER) (test code = [place] [facility], 1538) [address]: Shopper Marketing Manager/Techni shaunna ID = [id number] for ROBNI PARRA Rapid drug [id number] 01:39:09 Test Item Value Reference Range Interpretation Comments Barbiturate Screen Negative Negative (test code = 70076-2) Benzodiazepine Screen Negative Negative (test code = 22279-9) Cocaine (Metab.) Negative Negative Screen (test code = 3397-7) Methadone Screen (test Negative Negative code = 24264-7) Opiate Screen (test Negative Negative code = 17789-9) Cannabinoid Screen Negative Negative (test code = 84919-5) Amph/Methamph Screen Negative Negative (test code = 43588-6) Phencyclidine Screen Negative Negative (test code = 75214-7) pH, UA (test code = 6.0 5.0-8.0 5803-2) CA (test code = CA) DRUG CUTOFF CONC.Cocaine 300 ng/mL Cannabinoid 50 ng/mLBenzodiazepine 200 ng/mLBarbiturate 200 ng/mLPhencyclidine 25 ng/mLOpiate 300 ng/mLMethadone 300 ng/mLAmphetamine/ 1000 ng/mL Methamphetamine This assay provides an unconfirmed qualitative test result for the clinical management of patients in emergency situations. Chain of custody not maintained. Some othq-wch-fkmuxkp medications, as well as adulterants, may cause inaccurate results. Clinical correlation should be applied. A more comprehensive drug screen or confirmation of a detected drug may be performed upon request.Shopper Marketing Manager HUGO - JENARO L Lab Interpretation Normal (test code = 73500-5) [facility] drug [id number] 01:39:09 Test Item Value Reference Range Interpretation Comments Barbiturate Screen Negative Negative (test code = 76967-8) Benzodiazepine Screen Negative Negative (test code = 57671-5) Cocaine (Metab.) Negative Negative Screen (test code = 3397-7) Methadone Screen (test Negative Negative code = 74179-0) Opiate Screen (test Negative Negative code = 79961-2) Cannabinoid Screen Negative Negative (test code = 54818-0) Amph/Methamph Screen Negative Negative (test code = 70499-4) Phencyclidine Screen Negative Negative (test code = 58610-3) pH, UA (test code = 6.0 5.0-8.0 5803-2) CA (test code = CA) DRUG CUTOFF CONC.Cocaine 300 ng/mL Cannabinoid 50 ng/mLBenzodiazepine 200 ng/mLBarbiturate 200 ng/mLPhencyclidine 25 ng/mLOpiate 300 ng/mLMethadone 300 ng/mLAmphetamine/ 1000 ng/mL Methamphetamine This assay provides an unconfirmed qualitative test result for the clinical management of patients in emergency situations. Chain of custody not maintained. Some uiyl-zcr-agdegig medications, as well as adulterants, may cause inaccurate results. Clinical correlation should be applied. A more comprehensive drug screen or confirmation of a detected drug may be performed upon request.Shopper Marketing Manager ID - PIAYA L Lab Interpretation Normal (test code = 80894-2) [facility] drug [id number] 01:39:09 Test Item Value Reference Range Interpretation Comments Barbiturate Screen Negative Negative (test code = 61683-5) Benzodiazepine Screen Negative Negative (test code = 09187-6) Cocaine (Metab.) Negative Negative Screen (test code = 3397-7) Methadone Screen (test Negative Negative code = 79060-0) Opiate Screen (test Negative Negative code = 32288-6) Cannabinoid Screen Negative Negative (test code = 47288-3) Amph/Methamph Screen Negative Negative (test code = 31999-2) Phencyclidine Screen Negative Negative (test code = 89028-7) pH, UA (test code = 6.0 5.0-8.0 5803-2) CA (test code = CA) DRUG CUTOFF CONC.Cocaine 300 ng/mL Cannabinoid 50 ng/mLBenzodiazepine 200 ng/mLBarbiturate 200 ng/mLPhencyclidine 25 ng/mLOpiate 300 ng/mLMethadone 300 ng/mLAmphetamine/ 1000 ng/mL Methamphetamine This assay provides an unconfirmed qualitative test result for the clinical management of patients in emergency situations. Chain of custody not maintained. Some woua-yac-wrxidaj medications, as well as adulterants, may cause inaccurate results. Clinical correlation should be applied. A more comprehensive drug screen or confirmation of a detected drug may be performed upon request.Shopper Marketing Manager ID - PIAYA L Lab Interpretation Normal (test code = 18246-0) [facility] [place], [id number] 01:39:09 Test Item Value Reference Range Interpretation Comments BARBITURATE URINE (BEAKER) (test Negative Negative code = 725) BENZODIAZEPINE SCREEN URINE (BEAKER) Negative Negative (test code = 726) COCAINE (METAB.) SCREEN (BEAKER) Negative Negative (test code = 1164) METHADONE SCREEN (BEAKER) (test code Negative Negative = 1436) OPIATE SCREEN URINE (BEAKER) (test Negative Negative code = 734) CANNABINOID SCREEN URINE (BEAKER) Negative Negative (test code = 727) AMPH/METHAMPH SCREEN (BEAKER) (test Negative Negative code = 1438) PHENCYCLIDINE SCREEN URINE (BEAKER) Negative Negative (test code = 608) PH UA (BEAKER) (test code = 467) 6.0 5.0-8.0 DRUG CUTOFF CONC.Cocaine 300 ng/mL Cannabinoid 50 ng/mLBenzodiazepine 200 ng/mLBarbiturate 200 ng/mLPhencyclidine 25 ng/mLOpiate 300 ng/mLMethadone 300 ng/mLAmphetamine/ 1000 ng/mL MethamphetamineThisassay provides an unconfirmed qualitative test result for the clinical management of patients in emergency situations. Chain of custody not maintained. Some dasa-fev-ggpspxb medications, as well as adulterants, may cause inaccurate results. Clinical correlation should be applied. A more comprehensive drug screen or confirmation of a detected drug may be performed upon request.Shopper Marketing Manager ID Elisabet EASON LPregnancy Screen, [id number] 01:01:58 Test Item Value Reference Range Interpretation Comments Preg Test, Ur (test code = 2112-1) Negative Negative Lab Interpretation (test code = Normal 96609-0) [facility] [place], [id number] 01:01:58 Test Item Value Reference Range Interpretation Comments Preg Test, Ur (test code = 2112-1) Negative Negative Lab Interpretation (test code = Normal 05749-9) [facility] [place], [id number] 01:01:58 Test Item Value Reference Range Interpretation Comments Preg Test, Ur (test code = 2112-1) Negative Negative Lab Interpretation (test code = Normal 86734-9) [facility] [place] S[place], [id number] 01:01:58 Test Item Value Reference Range Interpretation Comments TEST URINE (BEAKER) (test Negative Negative code = 583) SODIUM, RANDOM [id number] 00:48:54 Test Item Value Reference Range Interpretation Comments SODIUM URINE (BEAKER) (test code = < meq/L 243) Reference Range: No NormalsOperator ID - JENARO LPotassium, random urine 2022-05-15 00:36:03 Test Item Value Reference Range Interpretation Comments Potassium Urine 34.7 meq/L (test code = 2828-2) CA (test code = Reference Range: No CA) NormalsOperator ID - JENARO Rubio [facility] [place] Nitrogen, random [id number] 00:36:03 Test Item Value Reference Range Interpretation Comments Urea Nitrogen, Ur 510 mg/dL (test code = 3095-7) CA (test code = Reference Range: No CA) NormalsOperator ID - JENARO L [facility] [place], random [id number] 00:36:03 Test Item Value Reference Range Interpretation Comments Potassium Urine 34.7 meq/L (test code = 2828-2) CA (test code = Reference Range: No CA) NormalsOperator ID - JENARO L [facility] [place] Nitrogen, random [id number] 00:36:03 Test Item Value Reference Range Interpretation Comments Urea Nitrogen, Ur 510 mg/dL (test code = 3095-7) CA (test code = Reference Range: No CA) NormalsOperator ID - JENARO [facility] [id number] 00:36:03 Test Item Value Reference Range Interpretation Comments Potassium Urine 34.7 meq/L (test code = 2828-2) CA (test code = Reference Range: No CA) NormalsOperator ID - JENARO Rubio [facility] [place] Nitrogen, random [id number] 00:36:03 Test Item Value Reference Range Interpretation Comments Urea Nitrogen, Ur 510 mg/dL (test code = 3095-7) CA (test code = Reference Range: No CA) NormalsOperator ID - JENARO Rubio [facility] [place]ATININE, RANDOM [id number] 00:36:03 Test Item Value Reference Range Interpretation Comments CREATININE URINE (BEAKER) (test 142.8 mg/dL code = 375) Reference Range: No NormalsOperator ID - JENARO LPOTASSIUM, RANDOM URINE 2022-05-15 00:36:03 Test Item Value Reference Range Interpretation Comments POTASSIUM URINE (BEAKER) (test 34.7 meq/L code = 195) Reference Range: No NormalsOperator ID - JENARO LUREA NITROGEN, RANDOM URINE 2022-05-15 00:36:03 Test Item Value Reference Range Interpretation Comments UREA NITROGEN URINE (BEAKER) (test 510 mg/dL code = 538) Reference Range: No NormalsOperator ID - JENARO LPOCT-GLUCOSE [id number] 00:25:15 Test Item Value Reference Range Interpretation Comments POC-GLUCOSE METER 83 mg/dL 70-110 : TESTED A T [facility] 6720 (BEAKER) (test code = [facility], 1538) [address]: Shopper Marketing Manager/Techni shaunna ID = [id number] for MICHELLE S, ROBIN POCT-GLUCOSE [id number] 22:06:12 Test Item Value Reference Range Interpretation Comments POC-GLUCOSE METER 99 mg/dL 70-110 : TESTED A T [facility] 6720 (BEAKER) (test code = [facility] [place] [facility], 1538) 26768: Shopper Marketing Manager/Techni shaunna ID = [id number] for MICHELLE S, ROBIN POCT-GLUCOSE [id number] 20:05:52 Test Item Value Reference Range Interpretation Comments POC-GLUCOSE METER 96 mg/dL 70-110 : TESTED A T [facility] (DANIEL) (test code = [place], 1538) [address]: Shopper Marketing Manager/Techni shaunna ID = [id number] for ROBIN PARRA U/S, DUPLEX, DOPPLER, AORTA/[id number] 17:53:00Reason for exam:->abdomen w/ doppler hepatic [facility] 1970 Sex: FFINAL REPORT Real-time Color and Spectral doppler ultrasound of the abdomen was performed. Main portal vein measures 1.2 cm in diameter. There is hepatopetal flow in the main portal vein with velocity 18.3 cm/sec. Right and left portal veins are patent. Proper hepatic artery, right hepaticartery, and left hepatic artery are patent with resistive indices 0.6, 0.5, and 0.6 respectively. IVC, right HV, middle HV and left HV are patent. IMPRESSION: Patent proper hepatic artery and portal veins. Signed: Deandre Warner Verified Date/Time: 05/14/2022 17:53:07 POCT-GLUCOSE [id number] 17:06:13 Test Item Value Reference Range Interpretation Comments POC-GLUCOSE METER 97 mg/dL 70-110 : TESTED A T [facility] 6720 (DANIEL) (test code = [place] [facility], 1538) [address]: Shopper Marketing Manager/Techni shaunna ID = [id number] for CIRILO ANDREW RAD, CHEST, 1 VIEW, NON [id number] 16:42:00Reason for exam:->concern for infectionShould this be performed at the bedside?->Yes [facility] 1970 Sex: FFINAL REPORT RAD, CHEST, 1 VIEW, NON DEPT TECHNIQUE: Frontal view(s) of the chest. INDICATION: concern for infection COMPARISON: None FINDINGS/IMPRESSION: Lines/Tubes: A right-sided peripheral IV with tip projecting over the right axillary vein. Lungs/pleura: The lungs are clear. No pleural effusion. No pneumothorax. Heart and Mediastinum: Unremarkable for technique. Soft Tissues and Bones: Unremarkable. Signed: Charles Boothe Verified Date/Time: 05/14/2022 16:42:33 POCT-GLUCOSE [id number] 15:33:24 Test Item Value Reference Range Interpretation Comments POC-GLUCOSE METER 97 mg/dL 70-110 : TESTED A T [facility] 6720 ([facility]) (test code = [place], 1538) [address]: Shopper Marketing Manager/Techni shaunna ID = [id number] for CIRILO ANDREW HEPATITIS B [id number] 15:12:57 Test Item Value Reference Range Interpretation Comments HEPATITIS B CORE TOTAL ANTIBODY Nonreactive Nonreactive ([facility]) (test code = 497) HEPATITIS B SURFACE ANTIBODY < mIU/mL <8.0 (BEAKER) (test code = 647) HEPATITIS B SURFACE ANTIGEN (2) Nonreactive Nonreactive (BEAKER) (test code = 2585) Shopper Marketing Manager ID - BSHEPATITIS A [id number] 15:09:44 Test Item Value Reference Range Interpretation Comments HEPATITIS A IGM ANTIBODY (BEAKER) Nonreactive Nonreactive (test code = 498) HEPATITIS A IGG ANTIBODY (BEAKER) Nonreactive Nonreactive (test code = 2797) Shopper Marketing Manager ID - BSHEPATITIS PANEL, [id number] 15:09:43 Test Item Value Reference Range Interpretation Comments HEPATITIS A IGM ANTIBODY (BEAKER) Nonreactive Nonreactive (test code = 498) HEPATITIS B CORE IGM ANTIBODY Nonreactive Nonreactive (BEAKER) (test code = 645) HEPATITIS C ANTIBODY (BEAKER) Nonreactive Nonreactive (test code = 367) HEPATITIS B SURFACE ANTIGEN (2) Nonreactive Nonreactive (BEAKER) (test code = 2585) Shopper Marketing Manager ID - BSHEPATITIS C [id number] 15:09:43 Test Item Value Reference Range Interpretation Comments HEPATITIS C ANTIBODY (BEAKER) Nonreactive Nonreactive (test code = 367) ALPHA FETOPROTEIN (AFP), TUMOR [id number] 15:09:42 Test Item Value Reference Range Interpretation Comments ALPHA-FETOPROTEIN (BEAKER) (test 2.9 ng/mL <10.0 code = 1094) Shopper Marketing Manager ID - BSPERIPHERAL BLOOD SMEAR - PATHOLOGIST [id number] 14:33:55 Test Item Value Reference Range Interpretation Comments PERIPHERAL SMR REVIEW Normochromic normocytic (BEAKER) (test code = anemia with 2640) polychromasia and mild anisopoikilocytosis. No significant increase in schistocytes. [id number] Bill Thorpe M.D. (BEAKER) (test code = 2849) [id number] 12:49:03 Test Item Value Reference Range Interpretation Comments RPR SCREEN (BEAKER) (test code = Nonreactive Nonreactive 420) [id number] 12:33:22 Test Item Value Reference Range Interpretation Comments ALPHA-1 ANTITRYPSIN (BEAKER) 201.90 mg/dL 90.00-200.00 H (test code = 502) Shopper Marketing Manager ID - MARCOOperator ID - PIAYA LPOCT-GLUCOSE [id number] 12:31:37 Test Item Value Reference Range Interpretation Comments POC-GLUCOSE METER 80 mg/dL 70-110 : TESTED A T [facility] 6720 (BEAKER) (test code = [facility] [place] [facility], 1538) [address]: Shopper Marketing Manager/Techni shaunna ID = [id number] for Togjessica e (contract), Asuncion nicolas EBV ANTIBODY, [id number] 11:09:25 Test Item Value Reference Range Interpretation Comments KAMILA REYNOSO VIRAL CAPSID Positive Negative, Equivocal A ANTIGEN IGG (BEAKER) (test code = 3415) Kamila Reynoso Viral Capsid Antigen IgG Result Interpretation: </= 0.8 Al Negative 0.9-1.0 Al Equivocal >/= 1.1 Al PositiveEBV ANTIBODY, [id number] 11:09:25 Test Item Value Reference Range Interpretation Comments KAMILA REYNOSO VIRAL CAPSID Negative Negative, Equivocal ANTIGEN IGM (BEAKER) (test code = 3418) Kamila Reynoso Viral Capsid Antigen IgM Result Interpretation: </= 0.8 Al Negative 0.9-1.0 Al Equivocal >/= 1.1 Al PositiveCYTOMEGALOVIRUS ANTIBODY, [id number] 11:09:24 Test Item Value Reference Range Interpretation Comments CYTOMEGALOVIRUS, IGG (BEAKER) Negative Negative, Equivocal (test code = 3770) CMV IgG Result Interpretation: </= 0.8 Al Negative 0.9-1.0 Al Equivocal >/=1.1 Al [id number] 11:06:41 Test Item Value Reference Range Interpretation Comments FIBRINOGEN LEVEL (BEAKER) (test 338 mg/dl 225-434 code = 658) POCT-GLUCOSE [id number] 10:56:06 Test Item Value Reference Range Interpretation Comments POC-GLUCOSE METER 80 mg/dL 70-110 : TESTED A T [facility] 6720 (BEAKER) (test code = [facility], 153) [address]: Shopper Marketing Manager/Techni shaunna ID = [id number] for PADL ANCIRILO E HEMOGLOBIN AND [id number] 10:43:12 Test Item Value Reference Range Interpretation Comments HEMOGLOBIN (BEAKER) (test code = 7.2 GM/DL 11.2-15.7 L 410) HEMATOCRIT (BEAKER) (test code = 20.7 % 34.1-44.9 L 411) Shopper Marketing Manager ID - [id number], [id number] 10:38:14 Test Item Value Reference Range Interpretation Comments PARATHYROID HORMONE INTACT 118.5 pg/mL 8.5-72.5 H (BEAKER) (test code = 577) Shopper Marketing Manager ID - MARCOCREATINE KINASE (CK)2022-05-14 10:05:03 Test Item Value Reference Range Interpretation Comments CREATINE KINASE TOTAL (BEAKER) (test 32 U/L 29-200 code = 380) Shopper Marketing Manager ID - MARCOACETAMINOPHEN [id number] 08:09:25 Test Item Value Reference Range Interpretation Comments ACETAMINOPHEN LEVEL (BEAKER) (test < ug/mL 10.0-30.0 L code = 344) Therapeutic Range: 10.0-30.0 g/mLToxic Levels: >200.0 g/mLOperator ID - CHINMAY POCT-GLUCOSE [id number] 07:56:42 Test Item Value Reference Range Interpretation Comments POC-GLUCOSE METER 74 mg/dL 70-110 : TESTED A T [facility] 6720 (BEAKER) (test code = [place], 1538) [address]: Shopper Marketing Manager/Techni shaunna ID = [id number] for CIRILO ANDREW CBC W/PLT COUNT & AUTO [id number] 06:52:57 Test Item Value Reference Range Interpretation Comments WHITE BLOOD CELL COUNT (BEAKER) 17.9 K/ L 3.5-10.5 H (test code = 775) RED BLOOD CELL COUNT (BEAKER) 2.47 M/ L 3.93-5.22 L (test code = 761) HEMOGLOBIN (BEAKER) (test code = 7.3 GM/DL 11.2-15.7 L 410) HEMATOCRIT (BEAKER) (test code = 21.9 % 34.1-44.9 L 411) MEAN CORPUSCULAR VOLUME (BEAKER) 89 fL 79-95 (test code = 753) MEAN CORPUSCULAR HEMOGLOBIN 29.6 pg 25.6-32.2 (BEAKER) (test code = 751) MEAN CORPUSCULAR HEMOGLOBIN CONC 33.3 GM/DL 32.2-35.5 (BEAKER) (test code = 752) RED CELL DISTRIBUTION WIDTH 18.1 % 11.7-14.4 H (BEAKER) (test code = 412) PLATELET COUNT (BEAKER) (test 235 K/CU MM 150-450 code = 756) MEAN PLATELET VOLUME (BEAKER) 10.4 fL 9.4-12.3 (test code = 754) NUCLEATED RED BLOOD CELLS 0 /100 WBC 0-0 (BEAKER) (test code = 413) (CELLAVISION MANUAL DIFF)2022-05-14 06:52:57 Test Item Value Reference Range Interpretation Comments NEUTROPHILS - REL 71 % (CELLAVISION)(BEAKER) (test code = 2816) LYMPHOCYTES - REL 7 % (CELLAVISION)(BEAKER) (test code = 2817) MONOCYTES - REL 15 % (CELLAVISION)(BEAKER) (test code = 2818) METAMYELOCYTES - REL 1 % 0-0 H (CELLAVISION)(BEAKER) (test code = 2821) BANDS - REL (CELLAVISION)(BEAKER) 6 % 0-10 (test code = 2826) NEUTROPHILS - ABS 12.71 K/ul 1.56-6.13 H (CELLAVISION)(BEAKER) (test code = 2830) LYMPHOCYTES - ABS 1.25 K/ul 1.18-3.74 (CELLAVISION)(BEAKER) (test code = 2831) MONOCYTES - ABS 2.69 K/uL 0.24-0.36 H (CELLAVISION)(BEAKER) (test code = 2832) METAMYELOCYTES - ABS 0.18 K/uL 0.00-0.00 H (CELLAVISION)(BEAKER) (test code = 2836) BANDS - ABS (CELLAVISION)(BEAKER) 1.07 K/uL 0.00-0.80 H (test code = 2840) TOTAL COUNTED (BEAKER) (test code 100 = 1351) WBC MORPHOLOGY (BEAKER) (test Normal code = 487) PLT MORPHOLOGY (BEAKER) (test Normal code = 486) POLYCHROMATOPHILLIC RBCS(BEAKER) 1+ few (test code = 478) HYPOCHROMIA (BEAKER) (test code = 2+ moderate 963) ANISOCYTOSIS (BEAKER) (test code 3+ many = 961) MACROCYTES (BEAKER) (test code = 3+ many 964) POIKILOCYTES (BEAKER) (test code 3+ many = 966) TARGET CELLS (BEAKER) (test code 3+ many = 480) OVALOCYTES (BEAKER) (test code = 2+ moderate 477) TEAR DROP CELLS (BEAKER) (test 1+ few code = 481) SARAH CELLS (BEAKER) (test code = 2+ moderate 474) ARTIFACT (CELLAVISION)(BEAKER) Present (test code = 3432) PLATELET CONCENTRATION Adequate (CELLAVISION)(BEAKER) (test code = 3438) Shopper Marketing Manager ID - Sandra Devine comments: Slide comments:BASIC METABOLIC [id number] 05:47:25 Test Item Value Reference Range Interpretation Comments SODIUM (BEAKER) 134 meq/L 136-145 L (test code = 381) POTASSIUM 3.9 meq/L 3.5-5.1 (BEAKER) (test code = 379) CHLORIDE (BEAKER) 105 meq/L 98-107 (test code = 382) CO2 (BEAKER) 19 meq/L 22-29 L (test code = 355) BLOOD UREA 37 mg/dL 7-21 H NITROGEN (BEAKER) (test code = 354) CREATININE 2.37 mg/dL 0.57-1.25 H (BEAKER) (test code = 358) GLUCOSE RANDOM 78 mg/dL 70-105 (BEAKER) (test code = 652) CALCIUM (BEAKER) 8.1 mg/dL 8.4-10.2 L (test code = 697) EGFR (BEAKER) 24 Interpretatio n of eGFR (test code = mL/min/1.73 values Stage De scription 1092) sq m Result G1 Renetta l or high >=90 G2 Mildly decreased 60-89 G3a Mildl y to moderately 45-5 9 G3b Moderately to s everely 30-44 G4 Severl y decreased 15-29 G5 Kidney failure <15Reported eGF R is based on the CKD-EPI 2020 equation that d oes not use a race coefficientEsti mated GFR is not as accur ate as Creatinine Chiquita rubin in predicting glom erular filtration rate . Estimated GFR is not appl icable for dialysis patien ts Shopper Marketing Manager ID - Dinorah markedly ictericHEPATIC FUNCTION [id number] 05:44:27 Test Item Value Reference Range Interpretation Comments TOTAL PROTEIN (BEAKER) (test code 5.2 gm/dL 6.0-8.3 L = 770) ALBUMIN (BEAKER) (test code = 2.2 g/dL 3.5-5.0 L 1145) BILIRUBIN TOTAL (BEAKER) (test 16.9 mg/dL 0.2-1.2 H code = 377) BILIRUBIN DIRECT (BEAKER) (test 12.0 mg/dL 0.1-0.5 H code = 706) ALKALINE PHOSPHATASE (BEAKER) 334 U/L 40-150 H (test code = 346) AST (SGOT) (BEAKER) (test code = 157 U/L 5-34 H 353) ALT (SGPT) (BEAKER) (test code = 64 U/L 6-55 H 347) Shopper Marketing Manager ID - Dinorah markedly ictericPT/[id number] 05:34:58 Test Item Value Reference Range Interpretation Comments PROTIME (BEAKER) (test code = 17.0 seconds 11.9-14.2 H 759) INR (BEAKER) (test code = 370) 1.47 <=5.90 PARTIAL THROMBOPLASTIN TIME 38.9 seconds 22.5-36.0 H (BEAKER) (test code = 760) RECOMMENDED COUMADIN/WARFARIN INR THERAPY RANGESSTANDARD DOSE: 2.0 - 3.0 Includes: PROPHYLAXIS for venous thrombosis, systemic embolization; TREATMENT for venous thrombosis and/or pulmonary embolus.HIGH RISK: Target INR is 2.5-3.5 for patients with mechanical heart valves.[id number] 05:16:15 Test Item Value Reference Range Interpretation Comments AMMONIA (BEAKER) (test code = 348) 43 mol/L 18-72 Shopper Marketing Manager ID - JENARO RITCHIEMOLALITY, [id number] 05:05:36 Test Item Value Reference Range Interpretation Comments OSMOLALITY, SERUM (BEAKER) (test 291 mOsm/kg 275-295 code = 615) U/S, ABDOMINAL, [id number] 04:50:00Reason for exam:->concern for biliary obstruction, ascites, JUAN PABLO [facility] : 1970 Sex: FFINAL REPORT TECHNIQUE: Grayscale ultrasound of the abdomen. INDICATION: concern for biliary obstruction, ascites, JUAN PABLO. COMPARISON: None. FINDINGS: MIDLINE VASCULATURE: The visualized inferior vena cava is patent. Portal vein is patent. The maximum visualized aortic diameter is 2.1 cm. LIVER: Smooth liver contour. Hyperechoic liver parenchyma compatible with fatty infiltration. No focal lesions. The main portal vein measures 1.2 cm. BILIARY:Gallbladder: No gallstones or sludge. There is gallbladder wall thickening to 0.5 cm. No gallbladder distention or pericholecystic fluid. Negative sonographic Schwarz sign.Common bile duct measures 0.5 cm, within normal limits. No intrahepatic biliary ductal dilatation. PANCREAS: Incompletely visualized due to overlying bowel gas. SPLEEN: No splenomegaly. The spleen measures 12.6 cm. PERITONEUM: Small volume free fluid. KIDNEYS: Normal in size bilaterally. No hydronephrosis. No sonographically evident solid mass lesion. IMPRESSION:Hepatic steatosis. Small volume free fluid. The gallbladder wall thickening may be secondary to intrinsic liver disease or congestion. No cholelithiasis or significant inflammatory changes. However, there is clinical concern for acalculous cholecystitis, can follow-up with HIDA scan. No biliary dilatation. Signed: Deandre Zarco Verified Date/Time: 05/14/2022 04:50:32 [id number] 02:35:19 Test Item Value Reference Range Interpretation Comments HAPTOGLOBIN (BEAKER) (test code = 111 mg/dL 14-258 366) Shopper Marketing Manager ID - PIAYA [id number] 02:19:15 Test Item Value Reference Range Interpretation Comments FERRITIN (BEAKER) (test code = 2362.99 ng/mL 5.00-275.00 H 361) Shopper Marketing Manager ID - ROJASperator ID - MANA, TIBC, % SAT. (WITHOUT FERRITIN) 2022-05-14 01:25:13 Test Item Value Reference Range Interpretation Comments IRON (BEAKER) (test code = 547) 85.0 ug/dL 40.0-160.0 TOTAL IRON BINDING CAPACITY 71 ug/dL 250-450 L (BEAKER) (test code = 769) IRON % SATURATION (2) (BEAKER) 120 % 20-55 H (test code = 2590) Shopper Marketing Manager ID - NAELOPOCT-GLUCOSE [id number] 00:29:01 Test Item Value Reference Range Interpretation Comments POC-GLUCOSE METER 80 mg/dL 70-110 : TESTED A T [facility] 6720 (BEAKER) (test code = [place], 1538) [address]: Shopper Marketing Manager/Techni shaunna ID = [id number] for Valentina Melgaram LACTATE DEHYDROGENASE (LDH)2022-05-13 23:37:00 Test Item Value Reference Range Interpretation Comments LACTATE DEHYDROGENASE (BEAKER) (test 595 U/L 125-220 H code = 635) Shopper Marketing Manager ID - JENARO LGAMMA GLUTAMYL TRANSFERASE (GGT)2022-05-13 23:36:59 Test Item Value Reference Range Interpretation Comments GAMMA GLUTAMYL TRANSFERASE (BEAKER) 276 U/L 9-64 H (test code = 364) Shopper Marketing Manager ID - JENARO LSpecimen markedly ictericSARS-CoV2/RT-PCR (Asymptomatic ONLY)2022-05-13 23:27:59 Test Item Value Reference Interpretation Comments Range SARS-COV2/RT-PCR Negative Negative The SARS-Co V-2 (test code = target nucleic 58488-6) acids are not detected in thi s specimen. Negat ace results do not preclude SARS-C oV-2 infection and should not be u sed as the sole bas is for patient management decisions. Nega tive results must be combined with clinical observations, patient history , and epidemiolog ical information. A false negative result may occu r if a specimen is improperly collected, transported or handled. This S ARS CoV-2 test is a rapid, real-jennifer e RT-PCR test intended for th e qualitative detection of nucleic acid fr om SARS-CoV-2 in a nasopharyngeal swab specimen collec amanda from individual s suspected of COVID-19 by the ir healthcare provider. CA (test code = This test has been CA) authorized by FDA under an EUA for use by authorized laboratories. This test is only authorized for the duration of the declaration that circumstances exist justifying the authorization of emergency use of in vitro diagnostic tests for detection and/or diagnosis of COVID-19 under Section 564(b)(1) of the Federal Food, Drug and Cosmetic Act, 21 U.S.C. 360bbb-3(b)(1), unless the authorization is terminated or revoked sooner. Fact Sheet for Healthcare Providers: https://www.[employer]BestHelper/Documents/Xp ert%20Xpress%20SAR S%20CoV-2/Fact%20S heets/302-3802%20S ARS-COV-2%20HEALTH CARE%20PROVIDERS%2 0FACT%20SHEET.pdf Fact Sheet for Healthcare Patients: https://wwwJiaThis/Documents/Xp ert%20Xpress%20SAR S%20CoV-2/Fact%20S heets/302-3801%20S ARS-COV-2%20PATIEN T%20FACT%20SHEET.p df Lab Interpretation Normal (test code = 41658-6) [facility])2022-05-13 23:27:59 Test Item Value Reference Range Interpretation Comments SARS-COV2/RT-PCR Negative Negative The SARS-Co V-2 target (test code = nucleic acids a re not 2999276) detected in thi s specimen. Negative result s do not preclude SARS-C oV-2 infection and s hould not be used as the deidra e basis for patient managem ent decisions. Nega tive results must be combine d with clinical observ ations, patient history , and epidemiological information. A false negativ e result may occur if a spec imen is improperly leatha ected, transported or handled. This SARS CoV-2 test is a rapid, real-time RT-PC R test intended for e qualitative detection of nu cleic acid from SARS-CoV-2 in a nasopharyngeal swab specimen collected from individuals suspected of CO VID-19 by their healthcar e provider. This test has been authorized by FDA under an EUA for use by authorized laboratories. This test is only authorized for the duration of the declaration that circumstances exist justifying the authorization of emergency use of in vitro diagnostic tests for detection and/or diagnosis of COVID-19 under Section 564(b)(1) of the Federal Food, Drug and Cosmetic Act, 21 U.S.C. 360bbb-3(b)(1), unless the authorization is terminated or revoked sooner. Fact Sheet for Healthcare Providers: https://www.[employer] m/Documents/Xpert%20Xpress%20SARS%20CoV-2/Fact%20Sheets/302-3802%92VOVC-DSX-5%20 HEALTHCARE%20PROVIDERS%20FACT%20SHEET.pdf Fact Sheet for Healthcare Patients: https://www.[employer]/Documents/Xpert%20Xp ress%20SARS%20CoV-2/Fact%20Sheets/302-3801%37OXEH-RMP-4%20PATIENT%20FACT%20SHEET .pdf(CELLAVISION MANUAL DIFF)2022-05-13 22:37:49 Test Item Value Reference Range Interpretation Comments NEUTROPHILS - REL 84 % (CELLAVISION)(BEAKER) (test code = 2816) LYMPHOCYTES - REL 8 % (CELLAVISION)(BEAKER) (test code = 2817) MONOCYTES - REL 4 % (CELLAVISION)(BEAKER) (test code = 2818) ATYPICAL LYMPHOCYTES - REL 4 % 0-0 H (CELLAVISION)(BEAKER) (test code = 2829) NEUTROPHILS - ABS 15.46 K/ul 1.56-6.13 H (CELLAVISION)(BEAKER) (test code = 2830) LYMPHOCYTES - ABS 1.47 K/ul 1.18-3.74 (CELLAVISION)(BEAKER) (test code = 2831) MONOCYTES - ABS 0.74 K/uL 0.24-0.36 H (CELLAVISION)(BEAKER) (test code = 2832) ATYPICAL LYMPHOCYTES - ABS 0.74 K/uL 0.00-0.00 H (CELLAVISION)(BEAKER) (test code = 2858) TOTAL COUNTED (BEAKER) (test code 100 = 1351) RBC MORPHOLOGY (BEAKER) (test code Normal = 762) WBC MORPHOLOGY (BEAKER) (test code Normal = 487) PLT MORPHOLOGY (BEAKER) (test code Normal = 486) ANISOCYTOSIS (BEAKER) (test code = Normal 961) HIV-1 ANTIGEN WITH HIV-1/2 [id number] 22:28:35 Test Item Value Reference Range Interpretation Comments HIV-1 ANTIGEN WITH HIV 1\\T\\2 Nonreactive Nonreactive ANTIBODY (2) (BEAKER) (test code = 2586) Shopper Marketing Manager ID - BSVITAMIN D, [id number] 22:28:34 Test Item Value Reference Range Interpretation Comments VITAMIN D 25-OH (BEAKER) (test 18.3 ng/mL 6.6-49.9 code = 2764) Effective 01/12/2017: Reference Range ChangeNew: 6.6-49.9 ng/mL Previous: 13.0- 47.8 ng/mLRecommendedVitamin D Target Range: 30.0-40.0 ng/mLOperator ID - BS VITAMIN [id number] 22:24:34 Test Item Value Reference Range Interpretation Comments VITAMIN B12 (BEAKER) (test code = 992 pg/mL 213-816 H 774) Shopper Marketing Manager ID - ADMINTSH/FREE T4 IF [id number] 22:24:34 Test Item Value Reference Range Interpretation Comments THYROID STIMULATING HORMONE 3.106 uIU/mL 0.350-4.940 (BEAKER) (test code = 772) Shopper Marketing Manager ID - ADMINBASIC METABOLIC [id number] 22:05:32 Test Item Value Reference Range Interpretation Comments SODIUM (BEAKER) 132 meq/L 136-145 L (test code = 381) POTASSIUM 4.1 meq/L 3.5-5.1 (BEAKER) (test code = 379) CHLORIDE (BEAKER) 103 meq/L 98-107 (test code = 382) CO2 (BEAKER) 18 meq/L 22-29 L (test code = 355) BLOOD UREA 35 mg/dL 7-21 H NITROGEN (BEAKER) (test code = 354) CREATININE 2.27 mg/dL 0.57-1.25 H (BEAKER) (test code = 358) GLUCOSE RANDOM 97 mg/dL 70-105 (BEAKER) (test code = 652) CALCIUM (BEAKER) 8.1 mg/dL 8.4-10.2 L (test code = 697) EGFR (BEAKER) 26 Interpretatio n of eGFR (test code = mL/min/1.73 values Stage De scription 1092) sq m Result G1 Renetta l or high >=90 G2 Mildly decreased 60-89 G3a Mildl y to moderately 45-5 9 G3b Moderately to s everely 30-44 G4 Severl y decreased 15-29 G5 Kidney failure <15Reported eGF R is based on the CKD-EPI 2020 equation that d oes not use a race coefficientEsti mated GFR is not as accur ate as Creatinine Chiquita rubin in predicting glom erular filtration rate . Estimated GFR is not appl icable for dialysis patien ts Shopper Marketing Manager ID - ADMINSpecimen markedly ictericHEPATIC FUNCTION [id number] 22:00:50 Test Item Value Reference Range Interpretation Comments TOTAL PROTEIN (BEAKER) (test code 5.5 gm/dL 6.0-8.3 L = 770) ALBUMIN (BEAKER) (test code = 2.4 g/dL 3.5-5.0 L 1145) BILIRUBIN TOTAL (BEAKER) (test 17.8 mg/dL 0.2-1.2 H code = 377) BILIRUBIN DIRECT (BEAKER) (test 12.7 mg/dL 0.1-0.5 H code = 706) ALKALINE PHOSPHATASE (BEAKER) 361 U/L 40-150 H (test code = 346) AST (SGOT) (BEAKER) (test code = 150 U/L 5-34 H 353) ALT (SGPT) (BEAKER) (test code = 66 U/L 6-55 H 347) Shopper Marketing Manager ID - ADMINSpecimen markedly [id number] 22:00:49 Test Item Value Reference Range Interpretation Comments PHOSPHORUS (BEAKER) (test code = 2.9 mg/dL 2.3-4.7 604) Shopper Marketing Manager ID - [id number] 22:00:49 Test Item Value Reference Range Interpretation Comments MAGNESIUM (BEAKER) (test code = 1.9 mg/dL 1.6-2.6 627) Shopper Marketing Manager ID - ADMINCBC W/PLT COUNT & AUTO [id number] 21:58:56 Test Item Value Reference Range Interpretation Comments WHITE BLOOD CELL COUNT (BEAKER) 18.4 K/ L 3.5-10.5 H (test code = 775) RED BLOOD CELL COUNT (BEAKER) 2.47 M/ L 3.93-5.22 L (test code = 761) HEMOGLOBIN (BEAKER) (test code = 7.5 GM/DL 11.2-15.7 L 410) HEMATOCRIT (BEAKER) (test code = 21.7 % 34.1-44.9 L 411) MEAN CORPUSCULAR VOLUME (BEAKER) 88 fL 79-95 (test code = 753) MEAN CORPUSCULAR HEMOGLOBIN 30.4 pg 25.6-32.2 (BEAKER) (test code = 751) MEAN CORPUSCULAR HEMOGLOBIN CONC 34.6 GM/DL 32.2-35.5 (BEAKER) (test code = 752) RED CELL DISTRIBUTION WIDTH 18.1 % 11.7-14.4 H (BEAKER) (test code = 412) PLATELET COUNT (BEAKER) (test 229 K/CU MM 150-450 code = 756) MEAN PLATELET VOLUME (BEAKER) 10.1 fL 9.4-12.3 (test code = 754) NUCLEATED RED BLOOD CELLS 0 /100 WBC 0-0 (BEAKER) (test code = 413) LACTIC ACID, [id number] 21:56:28 Test Item Value Reference Range Interpretation Comments LACTATE BLOOD VENOUS (2) (BEAKER) 0.66 mmol/L 0.50-2.20 (test code = 2872) [employer]pper Marketing Manager ID - ADMINSpecimen markedly ictericPT/[id number] 21:49:09 Test Item Value Reference Range Interpretation Comments PROTIME (BEAKER) (test code = 17.7 seconds 11.9-14.2 H 759) INR (BEAKER) (test code = 370) 1.56 <=5.90 PARTIAL THROMBOPLASTIN TIME 38.5 seconds 22.5-36.0 H (BEAKER) (test code = 760) RECOMMENDED COUMADIN/WARFARIN INR THERAPY RANGESSTANDARD DOSE: 2.0 - 3.0 Includes: PROPHYLAXIS for venous thrombosis, systemic embolization; TREATMENT for venous thrombosis and/or pulmonary embolus.HIGH RISK: Target INR is 2.5-3.5 for patients with mechanical heart valves.UR SODIUM [id number] 06:09:00 Test Item Value Reference Range Interpretation Comments UR SODIUM RANDOM 9 mmol/L NO REFERENC E VALUES (test code = SHEREE) AVAILABLE FOR RANDOM URINE SODIUM UR POTASSIUM [id number] 06:09:00 Test Item Value Reference Range Interpretation Comments UR POTASSIUM RANDOM 56 mmol/L NO REFER ENCE RANGE (test code = KU) AVAILABLE F OR MICHAEL URINE POTASSIUM UR OSMOLALITY [id number] 06:09:00 Test Item Value Reference Range Interpretation Comments UR OSMOLALITY RANDOM (test code = 384 mOsm/kg 50-1200 N OSMOU) CBC W/AUTO [id number] 05:24:00 Test Item Value Reference Range Interpretation Comments WHITE BLOOD CELL (test code = 21.6 10 3/uL 4.5-11.0 H WBC) RED BLOOD CELL (test code = 2.59 10 6/uL 3.50-5.50 L RBC) HEMOGLOBIN (test code = HGB) 8.0 g/dL 12.0-16.0 L HEMATOCRIT (test code = HCT) 22.4 % 37.0-55.0 L MEAN CELL VOLUME (test code = 87 fL 81-102 N MCV) MEAN CELL HGB (test code = 30.9 pg 26.0-34.0 N MCH) MEAN CELL HGB CONCENTRATION 35.7 g/dL 31.0-37.0 N (test code = MCHC) RED CELL DISTRIBUTION WIDTH 17.3 % 11.6-14.4 H (test code = RDW) PLATELET COUNT (test code = 265 10 3/uL 150-400 N PLT) MEAN PLATELET VOLUME (test 10.2 fL 9.0-12.6 N code = MPV) NEUTROPHIL % (test code = NT%) 75.5 % 33.0-76.0 N IMMATURE GRANULOCYTE % (test 9.7 % 0.0-1.0 H code = IG%) LYMPHOCYTE % (test code = LY%) 6.6 % 14.0-56.4 L MONOCYTE % (test code = MO%) 7.5 % 0.0-12.9 N EOSINOPHIL % (test code = EO%) 0.2 % 0.0-7.0 N BASOPHIL % (test code = BA%) 0.5 % 0-2.0 N NUCLEATED RBC % (test code = 0.1 % 0-0.2 N NRBC%) NEUTROPHIL # (test code = NT#) 16.33 10 3/uL 1.5-7.0 H IMMATURE GRANULOCYTE # (test 2.090 x10 3/uL 0.000-0.100 H code = IG#) LYMPHOCYTE # (test code = LY#) 1.43 10 3/uL 1.50-4.00 L MONOCYTE # (test code = MO#) 1.63 10 3/uL 0.20-0.80 H EOSINOPHIL # (test code = EO#) 0.05 10 3/uL 0.0-0.5 N BASOPHIL # (test code = BA#) 0.10 10 3/uL 0.0-0.1 N NUCLEATED RBC # (test code = 0.020 10 3/uL 0.000-0.012 H NRBC#) DIFFERENTIAL [id number] 05:24:00 Test Item Value Reference Range Interpretation Comments RBC MORPHOLOGY REQUIRED NORMAL (test code = RBCM) PLATELET ESTIMATE (test code ADEQUATE ADEQUATE = PLTEST) PLATELET MORPHOLOGY (test NORMAL PLT MORPH NORMAL code = PLTMORPH) ANISOCYTOSIS (test code = 1+ NONE SEEN A ANISO) COMPREHENSIVE METABOLIC [id number] 05:15:00 Test Item Value Reference Range Interpretation Comments SODIUM (test code 133 mmol/L 135-145 L = NA) POTASSIUM (test 4.1 mmol/L 3.5-5.1 N code = K) CHLORIDE (test 102 mmol/L 98-107 N code = CL) CARBON DIOXIDE 19 mmol/L 21-32 L (test code = CO2) ANION GAP (test 16.1 2.0-16.0 H code = GAP) GLUCOSE (test code 96 mg/dL 65-99 N = GLU) BLOOD UREA 32 mg/dL 4-23 H NITROGEN (test code = BUN) GLOMERULAR 24 ml/min >60 L The Glomerular Filtration FILTRATION RATE Rate is a ca lculated (test code = GFR) parameterb ased on serum Creatinine, pat ient age and sex. GFR va luesless than 60 mL/min/ 1.73 square meters a re indicative ofCh ronic Kidney Disease. Values less than 15 mL/min/1.73squa re meters indicate Kidney failure. The calculation forGFR is based on the CK D-EPI (2020) calculat ion. This formulais race indifferent and is the recommended for gisel for GFRby the [facility] for Adults.The GFR will not ca lculate if the sex is unkn own or if thepatient's ag e is <18 years. CREATININE (test 2.4 mg/dL 0.6-1.5 H code = CREAT) BUN/CREATININE 13.3 12.0-20.0 N RATIO (test code = BUN/CREA) TOTAL PROTEIN 5.4 g/dL 6.4-8.2 L (test code = PROT) ALBUMIN (test code 1.6 g/dL 3.4-5.0 L = ALB) CALCIUM (test code 7.8 mg/dL 8.5-10.1 L = CA) BILIRUBIN TOTAL 14.5 mg/dL 0.2-1.2 H Use of this assay is not (test code = BILT) recommend ed for patients undergoingtreat ment with Eltrombopag due to the potential for falselyelevated results. SGOT/AST (test 141 U/L 15-37 H code = AST) SGPT/ALT (test 69 U/L 6-50 H code = ALT) ALKALINE 404 U/L 45-117 H PHOSPHATASE (test code = ALKP) Spec Comments: Daily while on [id number] 05:15:00 Test Item Value Reference Range Interpretation Comments PHOSPHOROUS (test code = PHOS) 3.1 mg/dL 2.5-4.9 N Spec Comments: Daily while on [id number] 05:15:00 Test Item Value Reference Range Interpretation Comments MAGNESIUM (test code = MAG) 1.9 mg/dL 1.8-2.4 N Spec Comments: Daily while on protocolPROTHROMBIN [id number] 05:07:00 Test Item Value Reference Range Interpretation Comments PROTHROMBIN TIME 16.4 SECONDS 9.4-12.5 H PATIENT (test code = PTP) INTERNATIONAL 1.5 RATIO 0.8-1.1 H THE INR IS USE FUL ONLY NORMAL RATIO (test FOR MONIT ORING code = INR) ANTICOAGULANT THERAPY.IT MAY BE UNRELIABLE IN T HE INITIAL PHASE O F ANTICOAGULATION AND IN UNSTABLE PATIEN TS. 2.0-3.0 is the recommended INR for the following:Preve ntion of venous thrombol ism in high-risk patients;treatm ent of venous thrombos is and pulmonary embol ism aftera course o f heparin; preven tion of systemic emboli sm in avariety of con dition, including atria l fibrillation andprosthetic t issue heart valves.2. 5-3.5 is the recommended INR for the following:Prost hetic mechanical hear t values and/or recurren t systemicemboliz ation. [id number] 00:51:00 Test Item Value Reference Range Interpretation Comments GLUBED (test 100 mg/dL 70-105 N Intravenous adm inistration code = GLUBED) of N-acetylcy steine which resultsin blood concentrations >5 mg/dL will cause overestim ationof blood glucose results . Do not use during intraven ousinfusion of N'acetylcyst eine. [id number] 11:12:00 Test Item Value Reference Range Interpretation Comments AMMONIA (test code = AMM) < 10 umol/L 11-35 L CBC W/AUTO [id number] 10:27:00 Test Item Value Reference Range Interpretation Comments WHITE BLOOD CELL (test 22.7 10 3/uL 4.5-11.0 H code = WBC) RED BLOOD CELL (test 2.55 10 6/uL 3.50-5.50 L code = RBC) HEMOGLOBIN (test code = 7.8 g/dL 12.0-16.0 L HGB) HEMATOCRIT (test code = 21.6 % 37.0-55.0 L HCT) MEAN CELL VOLUME (test 85 fL 81-102 N code = MCV) MEAN CELL HGB (test 30.6 pg 26.0-34.0 N code = MCH) MEAN CELL HGB 36.1 g/dL 31.0-37.0 N CONCENTRATION (test code = MCHC) RED CELL DISTRIBUTION 17.1 % 11.6-14.4 H WIDTH (test code = RDW) PLATELET COUNT (test 264 10 3/uL 150-[address] CLUMPS code = PLT) SEEN ON A SMEAR MEAN PLATELET VOLUME 10.2 fL 9.0-12.6 N (test code = MPV) NEUTROPHIL % (test code 70.6 % 33.0-76.0 N = NT%) IMMATURE GRANULOCYTE % 11.6 % 0.0-1.0 H (test code = IG%) LYMPHOCYTE % (test code 6.4 % 14.0-56.4 L = LY%) MONOCYTE % (test code = 9.4 % 0.0-12.9 N MO%) EOSINOPHIL % (test code 1.3 % 0.0-7.0 N = EO%) BASOPHIL % (test code = 0.7 % 0-2.0 N BA%) NUCLEATED RBC % (test 0.1 % 0-0.2 N code = NRBC%) NEUTROPHIL # (test code 16.05 10 3/uL 1.5-7.0 H = NT#) IMMATURE GRANULOCYTE # 2.640 x10 3/uL 0.000-0.100 H (test code = IG#) LYMPHOCYTE # (test code 1.45 10 3/uL 1.50-4.00 L = LY#) MONOCYTE # (test code = 2.14 10 3/uL 0.20-0.80 H MO#) EOSINOPHIL # (test code 0.30 10 3/uL 0.0-0.5 N = EO#) BASOPHIL # (test code = 0.16 10 3/uL 0.0-0.1 H BA#) NUCLEATED RBC # (test 0.030 10 3/uL 0.000-0.012 H code = NRBC#) DIFFERENTIAL [id number] 10:27:00 Test Item Value Reference Range Interpretation Comments RBC MORPHOLOGY REQUIRED ABNORMAL (test code = RBCM) PLATELET ESTIMATE (test code ADEQUATE ADEQUATE = PLTEST) PLATELET MORPHOLOGY (test NORMAL PLT MORPH NORMAL code = PLTMORPH) HYPOCHROMIA (test code = 2+ NONE SEEN A HYPO) ANISOCYTOSIS (test code = 1+ NONE SEEN A ANISO) TARGET CELLS (test code = 1+ NONE SEEN A TGT) WBC [id number] 10:27:00 Test Item Value Reference Range Interpretation Comments TOTAL CELLS COUNTED (test code = 100 #CELLS TCC) SEGMENTED NEUTROPHILS (test code = 78 % 33-76 H SEG) LYMPHOCYTE (test code = LYMPH) 8 % 14-54 L BAND NEUTROPHIL (test code = BAND) 2 % 0-1 H ATYPICAL LYMPH (test code = 2 % 0-5 N ALYMPH) MONOCYTE (test code = MON) 6 % 0-12 N METAMYELOCYTE (test code = META) 2 % 0-0 H MYELOCYTE (test code = MYELO) 2 % 0-0 H LIVER FUNCTION [id number] 10:01:00 Test Item Value Reference Range Interpretation Comments TOTAL PROTEIN 5.2 g/dL 6.4-8.2 L (test code = PROT) ALBUMIN (test code 1.6 g/dL 3.4-5.0 L = ALB) GLOBULIN (test 3.6 g/dL 2.3-3.5 H code = GLOB) BILIRUBIN TOTAL 13.4 mg/dL 0.2-1.2 H Use of this assay is not (test code = BILT) recommend ed for patients undergoingtreat ment with Eltrombopag due to the potential for falselyelevated results. BILIRUBIN DIRECT 10.9 mg/dL 0.0-0.3 H (test code = BILD) BILIRUBIN INDIRECT 2.5 mg/dL 0.0-0.8 H (test code = BILIND) SGOT/AST (test 117 U/L 15-37 H code = AST) SGPT/ALT (test 63 U/L 6-50 H code = ALT) ALKALINE 411 U/L 45-117 H PHOSPHATASE (test code = ALKP) Spec Comments: add-onComments to Phleb: add-onLACTIC [id number] 09:53:00 Test Item Value Reference Range Interpretation Comments LACTIC ACID (test code = LACT) 1.4 mmol/L 0.4-2.0 N COMPREHENSIVE METABOLIC [id number] 05:23:00 Test Item Value Reference Range Interpretation Comments SODIUM (test code 127 mmol/L 135-145 L = NA) POTASSIUM (test 4.4 mmol/L 3.5-5.1 N code = K) CHLORIDE (test 98 mmol/L 98-107 N code = CL) CARBON DIOXIDE 16 mmol/L 21-32 L (test code = CO2) ANION GAP (test 17.4 2.0-16.0 H code = GAP) GLUCOSE (test code 107 mg/dL 65-99 H = GLU) BLOOD UREA 33 mg/dL 4-23 H NITROGEN (test code = BUN) GLOMERULAR 20 ml/min >60 L The Glomerular Filtration FILTRATION RATE Rate is a ca lculated (test code = GFR) parameterb ased on serum Creatinine, pat ient age and sex. GFR va luesless than 60 mL/min/ 1.73 square meters a re indicative ofCh ronic Kidney Disease. Values less than 15 mL/min/1.73squa re meters indicate Kidney failure. The calculation forGFR is based on the CK D-EPI (2020) calculat ion. This formulais race indifferent and is the recommended for gisel for GFRby the [facility] for Adults.The GFR will not ca lculate if the sex is unkn own or if thepatient's ag e is <18 years. CREATININE (test 2.8 mg/dL 0.6-1.5 H code = CREAT) BUN/CREATININE 11.8 12.0-20.0 L RATIO (test code = BUN/CREA) TOTAL PROTEIN 5.8 g/dL 6.4-8.2 L (test code = PROT) ALBUMIN (test code 1.8 g/dL 3.4-5.0 L = ALB) CALCIUM (test code 8.1 mg/dL 8.5-10.1 L = CA) BILIRUBIN TOTAL 15.0 mg/dL 0.2-1.2 H Use of this assay is not (test code = BILT) recommend ed for patients undergoingtreat ment with Eltrombopag due to the potential for falselyelevated results. SGOT/AST (test 134 U/L 15-37 H code = AST) SGPT/ALT (test 73 U/L 6-50 H code = ALT) ALKALINE 444 U/L 45-117 H PHOSPHATASE (test code = ALKP) Spec Comments: Daily while on [id number] 05:23:00 Test Item Value Reference Range Interpretation Comments PHOSPHOROUS (test code = PHOS) 3.0 mg/dL 2.5-4.9 N Spec Comments: Daily while on [id number] 05:23:00 Test Item Value Reference Range Interpretation Comments MAGNESIUM (test code = MAG) 2.0 mg/dL 1.8-2.4 N Spec Comments: Daily while on protocolBASIC METABOLIC [id number] 20:37:00 Test Item Value Reference Range Interpretation Comments SODIUM (test code = 128 mmol/L 135-145 L NA) POTASSIUM (test code 4.6 mmol/L 3.5-5.1 N = K) CHLORIDE (test code 98 mmol/L 98-107 N = CL) CARBON DIOXIDE (test 15 mmol/L 21-32 L code = CO2) ANION GAP (test code 19.6 2.0-16.0 H = GAP) GLUCOSE (test code = 99 mg/dL 65-99 N GLU) BLOOD UREA NITROGEN 33 mg/dL 4-23 H (test code = BUN) GLOMERULAR 18 ml/min >60 L The Glomerular FILTRATION RATE Filtration R ate is a (test code = GFR) calculated parameterbased on serum Creatinine, pat ient age and sex. GFR va luesless than 60 mL/min/ 1.73 square meters a re indicative ofCh ronic Kidney Disease. Values less than 15 mL/min/1.73squa re meters indicate Kidney failure. The calculation for GFR is based on the CK D-EPI (2020) calculat ion. This formulais race indifferent and is the recommended for gisel for GFRby the [facility] on for Adults.The GFR will not calculate if th e sex is unknown or if thepatient's ag e is <18 years. CREATININE (test 3.0 mg/dL 0.6-1.5 H code = CREAT) BUN/CREATININE RATIO 11.0 12.0-20.0 L (test code = BUN/CREA) CALCIUM (test code = 8.0 mg/dL 8.5-10.1 L CA) UA RFLX MICR CULT IF [id number] 19:21:00 Test Item Value Reference Range Interpretation Comments UA COLOR (test code = COLU) REESE YELLOW A UA APPEARANCE (test code = Slightly-Cloudy CLEAR APPU) UA GLUCOSE DIPSTICK (test 1+ NEGATIVE A code = DGLUU) UA BILIRUBIN DIPSTICK (test 1+ NEGATIVE A code = BILU) UA KETONE DIPSTICK (test code NEGATIVE NEGATIVE = KETU) UA SPECIFIC GRAVITY (test 1.016 1.005-1.025 N code = SGU) UA BLOOD DIPSTICK (test code 1+ NEGATIVE A = ASHLYN) UA PH DIPSTICK (test code = 5.0 5.0-8.0 ANTOLIN) UA PROTEIN DIPSTICK (test NEGATIVE NEGATIVE code = PROU) UA UROBILINOGEN DIPSTICK 2.0 EU/dL 0.1-0.2 A (test code = URO) UA NITRITE DIPSTICK (test NEGATIVE NEGATIVE code = ELADIA) UA LEUKOCYTE ESTERASE NEGATIVE NEGATIVE DIPSTICK (test code = LEUU) UA MICROSCOPIC NEEDED? (test YES NO A code = UAMICRO) UA WBC (test code = WBCU) 11-20 /hpf 0-3 A UA RBC (test code = RBCU) 6-10 /hpf 0-3 A UA BACTERIA (test code = RARE /HPF NEGATIVE BACU) UA SQUAMOUS CELLS (test code RARE /HPF FEW = SQU) Indication for culture: RiskForSepsis-no oth srcSpecimen Description: CLEAN CATCHAB HEPATITIS A [id number] 16:50:00 Test Item Value Reference Range Interpretation Comments AB HEPATITIS A IGM (test code = Non-Reactive NONREACTIVE HAVMAB) AG HEPATITIS B [id number] 16:50:00 Test Item Value Reference Range Interpretation Comments AG HEPATITIS B SURFACE (test Non-Reactive NONREACTIVE code = HBSAG) AB HEPATITIS B CORE [id number] 16:50:00 Test Item Value Reference Range Interpretation Comments AB HEPATITIS B CORE IGM (test Non-Reactive NONREACTIVE code = HBCMAB) AB HEPATITIS [id number] 16:50:00 Test Item Value Reference Range Interpretation Comments AB HEPATITIS C (test code = Non-Reactive NONREACTIVE HCVAB) - US ABDOMEN [id number] 16:20:00 [facility] [place] : 1970 Sex: FPatient Name: TWYLAROBERTO DÍAZ Unit No: [id number] EXAMS: CPT CODE: [id number] US ABDOMEN LTD 12121 RIGHT UPPER QUADRANT ULTRASOUND LOCATION: A1 HISTORY: Elevated liver enzymes. Technique: Focused ultrasound of the right upper quadrant was performed. Unless otherwise specified, incidental findings do not require dedicated imaging follow-up. No prior exams are available for comparison. FIND INGS: The liver is normal in size and shape and shows a diffuse increased echotexture consistent with fatty infiltration. There is no focal abnormality or intrahepatic ductal dilatation. The gallbladder shows no evidence of cholelithiasis or pericholecystic inflammatory process. There appears to be slu dge in the gallbladder. Further workup should be based on clinical suspicion for an acute gallbladder abnormality. The common duct measures a normal 5 mm. The right kidney is normal in size, shape and echotexture without focal abnormality. The pancreas is not well seen due to overlying bowel gas but no gross abnormality is noted in this region. Visualized portions of the abdominal aorta and inferior vena cava are unremarkable. No free fluid is seen in the right upper quadrant of the abdomen or the right lung base. IMPRESSION: Possible gallbladder sludge. No other obvious right upper quadrant abnormality. at 1620 Reported and signed by: Arden Gibson Jr, MD CC: Self Referred; Brannon Cruz MD; Jade Hogue Technologist: Zayra Mills Probe: Trscr Dt/Tm: 05/11/2022 (1620) by:Marques Electronic Signature Date/Time: 05/11/2022 (1620)Orig Print D/T: S: 05/11/2022 (1624) Name: ROBERTO WAKEFIELD [facility] Phys: Jade Navarro APRN [address] : 1970 Age: 51 Sex: F [place] [id number] Loc: NC.IC02 A Exam Date: 05/11/2022 Status: ADM IN PH: FAX: PAGE 1 Signed ReportBASIC METABOLIC [id number] 15:52:00 Test Item Value Reference Range Interpretation Comments SODIUM (test code = 124 mmol/L 135-145 L NA) POTASSIUM (test code 4.8 mmol/L 3.5-5.1 N = K) CHLORIDE (test code 94 mmol/L 98-107 L = CL) CARBON DIOXIDE (test 17 mmol/L 21-32 L code = CO2) ANION GAP (test code 17.8 2.0-16.0 H = GAP) GLUCOSE (test code = 99 mg/dL 65-99 N GLU) BLOOD UREA NITROGEN 35 mg/dL 4-23 H (test code = BUN) GLOMERULAR 17 ml/min >60 L The Glomerular FILTRATION RATE Filtration R ate is a (test code = GFR) calculated parameterbased on serum Creatinine, pat ient age and sex. GFR va luesless than 60 mL/min/ 1.73 square meters a re indicative ofCh ronic Kidney Disease. Values less than 15 mL/min/1.73squa re meters indicate Kidney failure. The calculation for GFR is based on the CK D-EPI (2020) calculat ion. This formulais race indifferent and is the recommended for gisel for GFRby the Nat n[facility] Kidney [facility] on for Adults.The GFR will not calculate if th e sex is unknown or if thepatient's ag e is <18 years. CREATININE (test 3.2 mg/dL 0.6-1.5 H code = CREAT) BUN/CREATININE RATIO 10.9 12.0-20.0 L (test code = BUN/CREA) CALCIUM (test code = 8.2 mg/dL 8.5-10.1 L CA) T4 [id number] 11:36:00 Test Item Value Reference Range Interpretation Comments T4 FREE (test code = T4F) 0.68 ng/dL 0.76-1.46 L Spec Comments: add-onComments to Phleb: add-onTSH REFLEX TO [id number] 11:36:00 Test Item Value Reference Range Interpretation Comments TSH REFLEX TO FT4 (test code = 3.96 mIU/mL 0.36-3.74 H TSHREFLEX) Spec Comments: add-onComments to Phleb: add-onBASIC METABOLIC [id number] 11:04:00 Test Item Value Reference Range Interpretation Comments SODIUM (test code = 121 mmol/L 135-145 L NA) POTASSIUM (test code 4.7 mmol/L 3.5-5.1 N = K) CHLORIDE (test code 92 mmol/L 98-107 L = CL) CARBON DIOXIDE (test 16 mmol/L 21-32 L code = CO2) ANION GAP (test code 17.7 2.0-16.0 H = GAP) GLUCOSE (test code = 107 mg/dL 65-99 H GLU) BLOOD UREA NITROGEN 33 mg/dL 4-23 H (test code = BUN) GLOMERULAR 16 ml/min >60 L The Glomerular FILTRATION RATE Filtration R ate is a (test code = GFR) calculated parameterbased on serum Creatinine, pat ient age and sex. GFR va luesless than 60 mL/min/ 1.73 square meters a re indicative ofCh ronic Kidney Disease. Values less than 15 mL/min/1.73squa re meters indicate Kidney failure. The calculation for GFR is based on the CK D-EPI (2020) calculat ion. This formulais race indifferent and is the recommended for gisel for GFRby the Nat n[facility] Kidney Found[facility] on for Adults.The GFR will not calculate if th e sex is unknown or if thepatient's ag e is <18 years. CREATININE (test 3.3 mg/dL 0.6-1.5 H code = CREAT) BUN/CREATININE RATIO 10.0 12.0-20.0 L (test code = BUN/CREA) CALCIUM (test code = 8.3 mg/dL 8.5-10.1 L CA) COVID 19 INHOUSE [id number] 10:07:00 Test Item Value Reference Range Interpretation Comments COVID 19 INHOUSE NEGATIVE Negative Negative re sults do not AG (test code = preclude 201 9-nCoV infection [id number]) andshould not b e used as the sole basis for treatment or otherpatient ma nagement decisions. Nega tive results must becombined with clinical observ ations, patient history , andepidemiologi brayden information. COMPREHENSIVE METABOLIC [id number] 09:43:00 Test Item Value Reference Range Interpretation Comments SODIUM (test code 122 mmol/L 135-145 L = NA) POTASSIUM (test 4.8 mmol/L 3.5-5.1 N code = K) CHLORIDE (test 92 mmol/L 98-107 L code = CL) CARBON DIOXIDE 17 mmol/L 21-32 L (test code = CO2) ANION GAP (test 17.8 2.0-16.0 H code = GAP) GLUCOSE (test code 110 mg/dL 65-99 H = GLU) BLOOD UREA 36 mg/dL 4-23 H NITROGEN (test code = BUN) GLOMERULAR 16 ml/min >60 L The Glomerular Filtration FILTRATION RATE Rate is a ca lculated (test code = GFR) parameterb ased on serum Creatinine, pat ient age and sex. GFR va luesless than 60 mL/min/ 1.73 square meters a re indicative ofCh ronic Kidney Disease. Values less than 15 mL/min/1.73squa re meters indicate Kidney failure. The calculation forGFR is based on the CK D-EPI (2020) calculat ion. This formulais race indifferent and is the recommended for gisel for GFRby the [facility] for Ad[facility].The GFR will not ca lculate if the sex is unkn own or if thepatient's ag e is <18 years. CREATININE (test 3.3 mg/dL 0.6-1.5 H code = CREAT) BUN/CREATININE 10.9 12.0-20.0 L RATIO (test code = BUN/CREA) TOTAL PROTEIN 5.8 g/dL 6.4-8.2 L (test code = PROT) ALBUMIN (test code 1.9 g/dL 3.4-5.0 L = ALB) CALCIUM (test code 8.2 mg/dL 8.5-10.1 L = CA) BILIRUBIN TOTAL 14.3 mg/dL 0.2-1.2 H Use of this assay is not (test code = BILT) recommend ed for patients undergoingtreat ment with Eltrombopag due to the potential for falselyelevated results. SGOT/AST (test 136 U/L 15-37 H code = AST) SGPT/ALT (test 75 U/L 6-50 H code = ALT) ALKALINE 447 U/L 45-117 H PHOSPHATASE (test code = ALKP) - XR CHEST 1 [id number] 07:53:00 [facility] [place] ROB[place] : 1970 Sex: FPatient Name: ROBERTO WAKEFIELD Unit No: [id number] EXAMS: CPT CODE: [id number] XR CHEST 1 V 89416 EXAM: XR Chest 1 View INDICATION: dyspnea LOCATION: A1 COMPARISON: None available. TECHNIQUE: Frontal view of the chest was obtained. FINDINGS: The lungs are clear. There is no pleural effusion or pneumothorax. The cardiomediastinal silhouette is unremarkable. No acute osseous abnormality is identified. IMPRESSION: No acute cardiopulmonary abnormality. at 0753 Reported and signed by: Sarah Beth Reveles M.D. CC:Self Referred; Brannon Cruz MD; Darlene Rodríguez MD Technologist: Travis Liang Time: DAP (Gy m2): Air Kerma (mGy): Trscr Dt/Tm: 05/11/2022 (075) by:[email or web address] Electronic Signature Date/Time: 05/11/2022 (075)Orig Print D/T: S: 05/11/2022 (0756) Name: ROBERTO WAKEFIELD [facility] Phys: [id number] - Darlene Rodríguez [place] [address] : 1970 Age: 51 Sex: [place] [id number] Loc: NC.IC02 A Exam Date: 05/11/2022 Status: ADM IN PH: FAX: PAGE 1 Signed ReportCBC W/MANUAL [id number] 06:34:00 Test Item Value Reference Range Interpretation Comments WHITE BLOOD CELL (test code 20.6 10 3/uL 4.5-11.0 H = WBC) RED BLOOD CELL (test code = 2.65 10 6/uL 3.50-5.50 L RBC) HEMOGLOBIN (test code = HGB) 8.3 g/dL 12.0-16.0 L HEMATOCRIT (test code = HCT) 22.9 % 37.0-55.0 L MEAN CELL VOLUME (test code 86 fL 81-102 N = MCV) MEAN CELL HGB (test code = 31.3 pg 26.0-34.0 N MCH) MEAN CELL HGB CONCENTRATION 36.2 g/dL 31.0-37.0 N (test code = MCHC) RED CELL DISTRIBUTION WIDTH 15.2 % 11.6-14.4 H (test code = RDW) PLATELET COUNT (test code = 271 10 3/uL 150-400 N PLT) MEAN PLATELET VOLUME (test 11.0 fL 9.0-12.6 N code = MPV) NEUTROPHIL # (test code = 14.22 10 3/uL 1.5-7.0 H NT#) IMMATURE GRANULOCYTE # (test 2.190 x10 3/uL 0.000-0.100 H code = IG#) LYMPHOCYTE # (test code = 2.17 10 3/uL 1.50-4.00 N LY#) MONOCYTE # (test code = MO#) 1.63 10 3/uL 0.20-0.80 H EOSINOPHIL # (test code = 0.31 10 3/uL 0.0-0.5 N EO#) BASOPHIL # (test code = BA#) 0.09 10 3/uL 0.0-0.1 N TOTAL CELLS COUNTED (test 100 #CELLS code = TCC) SEGMENTED NEUTROPHILS (test 60 % 33-76 N code = SEG) LYMPHOCYTE (test code = 20 % 14-54 N LYMPH) PLATELET ESTIMATE (test code ADEQUATE ADEQUATE = PLTEST) PLATELET MORPHOLOGY (test NORMAL PLT MORPH NORMAL code = PLTMORPH) BAND NEUTROPHIL (test code = 2 % 0-1 H BAND) MONOCYTE (test code = MON) 6 % 0-12 N EOSINOPHIL (test code = EOS) 3 % 0-7 N BASOPHIL (test code = BASO) 2 % 0.0-2.0 N METAMYELOCYTE (test code = 2 % 0-0 H META) MYELOCYTE (test code = 5 % 0-0 H MYELO) HYPOCHROMIA (test code = 1+ NONE SEEN A HYPO) RBC MORPHOLOGY COMMENT (test Abnormal NORMAL code = MOC) [id number] 05:36:00 Test Item Value Reference Range Interpretation Comments AMMONIA (test code = AMM) < 11 umol/L 11-35 L LACTIC [id number] 05:36:00 Test Item Value Reference Range Interpretation Comments LACTIC ACID (test code = LACT) 1.4 mmol/L 0.4-2.0 N BASIC METABOLIC [id number] 05:28:00 Test Item Value Reference Range Interpretation Comments SODIUM (test code = 121 mmol/L 135-145 L NA) POTASSIUM (test code 4.5 mmol/L 3.5-5.1 N = K) CHLORIDE (test code 90 mmol/L 98-107 L = CL) CARBON DIOXIDE (test 15 mmol/L 21-32 L code = CO2) ANION GAP (test code 20.5 2.0-16.0 H = GAP) GLUCOSE (test code = 97 mg/dL 65-99 N GLU) BLOOD UREA NITROGEN 33 mg/dL 4-23 H (test code = BUN) GLOMERULAR 16 ml/min >60 L The Glomerular FILTRATION RATE Filtration R ate is a (test code = GFR) calculated parameterbased on serum Creatinine, pat ient age and sex. GFR va luesless than 60 mL/min/ 1.73 square meters a re indicative ofCh ronic Kidney Disease. Values less than 15 mL/min/1.73squa re meters indicate Kidney failure. The calculation for GFR is based on the CK D-EPI (2020) calculat ion. This formulais race indifferent and is the recommended for gisel for GFRby the Natio nal Kidney Foundati on for Adults.The GFR will not calculate if th e sex is unknown or if thepatient's ag e is <18 years. CREATININE (test 3.3 mg/dL 0.6-1.5 H code = CREAT) BUN/CREATININE RATIO 10.0 12.0-20.0 L (test code = BUN/CREA) CALCIUM (test code = 7.9 mg/dL 8.5-10.1 L CA) LIPID PROFILE (CORONARY RISK)2022-05-11 05:28:00 Test Item Value Reference Range Interpretation Comments TRIGLYCERIDES (test 195 mg/dL 0-149 H Accordin g to the National code = TRIG) Institutes of ealt (NIH) and theNational Cholesterol Edu cation Program (NCEP), serumtriglyceri de levels between 150-199 mg/dL are consideredBorde rline High. CHOLESTEROL (test 130 mg/dL 0-200 N code = CHOL) CHOLESTEROL/HDL 7 1-6 H RATIO (test code = CHOLHDL) HDL CHOLESTEROL 18 mg/dL 40-60 L (test code = HDL) LIPOPROTEIN LDL 97 mg/dL 0-100 N (test code = LDLC) LIVER FUNCTION [id number] 05:28:00 Test Item Value Reference Range Interpretation Comments TOTAL PROTEIN 5.6 g/dL 6.4-8.2 L (test code = PROT) ALBUMIN (test code 1.9 g/dL 3.4-5.0 L = ALB) GLOBULIN (test 3.7 g/dL 2.3-3.5 H code = GLOB) BILIRUBIN TOTAL 13.1 mg/dL 0.2-1.2 H Use of this assay is not (test code = BILT) recommend ed for patients undergoingtreat ment with Eltrombopag due to the potential for falselyelevated results. BILIRUBIN DIRECT 11.3 mg/dL 0.0-0.3 H (test code = BILD) BILIRUBIN INDIRECT 1.8 mg/dL 0.0-0.8 H (test code = BILIND) SGOT/AST (test 130 U/L 15-37 H code = AST) SGPT/ALT (test 71 U/L 6-50 H code = ALT) ALKALINE 404 U/L 45-117 H PHOSPHATASE (test code = ALKP) [id number] 05:28:00 Test Item Value Reference Range Interpretation Comments PHOSPHOROUS (test code = PHOS) 2.5 mg/dL 2.5-4.9 N [id number] 05:28:00 Test Item Value Reference Range Interpretation Comments LIPASE (test code = LIP) 57 U/L 73-393 L [id number] 05:28:00 Test Item Value Reference Range Interpretation Comments MAGNESIUM (test code = MAG) 2.0 mg/dL 1.8-2.4 N OSMOLALITY [id number] 05:28:00 Test Item Value Reference Range Interpretation Comments OSMOLALITY SERUM (test code = 272 mOsm/kg 278-305 L OSMO) TROP-I HIGH [id number] 05:28:00 Test Item Value Reference Range Interpretation Comments TROP-I HIGH SENSITIVITY 63 pg/mL 0-53 H CAUT ION: Units of the (test code = TROPIHS) curren t test methodology (pg /mL) differ from the prior test methodolog y (ng/mL) by a fa ctor of 1000. POC VENOUS BLOOD [id number] 05:18:00 Test Item Value Reference Range Interpretation Comments POC IONIZED CALCIUM (test 0.87 mmol/L 1.12-1.32 L code = POCCA) POC VENOUS BLOOD GAS PH (test 7.378 7.33-7.45 N code = POCPHV) POC VENOUS BLOOD GAS PCO2 19.9 mm Hg 35-45 LL (test code = FAOAQO4E) POC VENOUS BLOOD GAS PO2 180.9 mmHg 80-90 H (test code = UXPQL5I) POC HCO3 VENOUS (test code = 11.7 mmol/L 22-24 L [id number]) POC BASE EXCESS VENOUS (test -11.6 mmol/L -2-4 L code = POCBEV) POC O2 SATURATION VENOUS 99.6 % 60-80 H (test code = UYHD3HN) POC SAMPLE SOURCE (test code Venous Descript Specimen = POCSAMPLE) COVID 19 INHOUSE [id number] 05:17:00 Test Item Value Reference Range Interpretation Comments COVID 19 INHOUSE NEGATIVE Negative Negative re sults do not AG (test code = preclude 201 9-nCoV infection [id number]) andshould not b e used as the sole basis for treatment or otherpatient ma nagement decisions. Nega tive results must becombined with clinical observ ations, patient history , andepidemiologi brayden information. PROTHROMBIN [id number] 05:03:00 Test Item Value Reference Range Interpretation Comments PROTHROMBIN TIME 16.0 SECONDS 9.4-12.5 H PATIENT (test code = PTP) INTERNATIONAL 1.4 RATIO 0.8-1.1 H THE INR IS USE FUL ONLY NORMAL RATIO (test FOR MONIT ORING code = INR) ANTICOAGULANT THERAPY.IT MAY BE UNRELIABLE IN T HE INITIAL PHASE O F ANTICOAGULATION AND IN UNSTABLE PATIEN TS. 2.0-3.0 is the recommended INR for the following:Preve ntion of venous thrombol ism in high-risk patients;treatm ent of venous thrombos is and pulmonary embol ism aftera course o f heparin; preven tion of systemic emboli sm in avariety of con dition, including atria l fibrillation andprosthetic t issue heart valves.2. 5-3.5 is the recommended INR for the following:Prost hetic mechanical hear t values and/or recurren t systemicemboliz ation. THROMBOPLASTIN TIME [id number] 05:03:00 Test Item Value Reference Range Interpretation Comments THROMBOPLASTIN TIME PARTIAL 45.0 SECONDS 25.1-36.5 H (test code = PTT)
[2022-06-09 23:37] LABS: Arterial Blood Carboxyhemoglob 1.1 % (0-1.5); Blood O2 Saturation 51.4 % (92-98.5)
[2022-06-10] MEDS ORDERED: VANCOMYCIN 1 GM/VIAL ONE (00:08)
[2022-06-10] MEDS ORDERED: NA CHLORIDE 0.9% 250 ML ONE (00:08)
[2022-06-10] MEDS ORDERED: Meropenem 1000 MG/VIAL IV ONE (00:08)
[2022-06-10] MEDS ORDERED: NA CHLORIDE 0.9% 100 ML ONE (00:09)
[2022-06-10 00:13] LABS: Absolute Lymphocytes (CBC) 13.5 K/uL (0.7-4.9); Hematocrit 23.3 % (36.0-45.0); Lymphocytes % 42.2 % (15.3-44.8); MCV 92.6 fL (80-100); MPV 9.3 fL (7.6-11.3); RBC Red Blood Cell Count 2.51 M/uL (3.86-4.86)
[2022-06-10 00:16] LABS: Protime INR 1.46
[2022-06-10 00:33] LABS: Urine Blood Negative (Negative); Urine Glucose Negative (Negative); Urine Protein 2+ (Negative); Urine Specific Gravity >=1.030 (1.005-1.030); Urine pH 5.5 (5.0-7.0)
[2022-06-10 00:33] LABS: Albumin 2.3 g/dL (3.4-5.0); Potassium 3.3 mmol/L (3.5-5.1); Protein, Total 6.8 g/dL (6.4-8.2)
[2022-06-10 00:35] LABS: Bilirubin Total 12.2 mg/dL (0.2-1.0)
[2022-06-10 00:55] LABS: Barbiturates NEGATIVE (NEGATIVE); Benzodiazepines NEGATIVE (NEGATIVE); Cocaine NEGATIVE (NEGATIVE); METHAMPHETAM NEGATIVE (NEGATIVE); Methadone NEGATIVE (NEGATIVE); Opiates NEGATIVE (NEGATIVE); Phencyclidine NEGATIVE (NEGATIVE); THC Cannibis NEGATIVE (NEGATIVE)
[2022-06-10 00:59] LABS: Transitional Epithelial <5 /HPF (None Seen); Urine Bacteria >50 /HPF (<20); Urine Mucus 1+ /HPF (None Seen); Urine RBC <5 /HPF (None Seen)
[2022-06-10] MEDS ORDERED: MIDAZOLAM HCL 2 MG/2 ML INJ ONE ×2 (01:02→03:49)
[2022-06-10 01:45] LABS: Arterial Blood Carboxyhemoglob 1.3 % (0-1.5); Blood Gas Oxyhemoglobin 90.1 % (94-97); Blood O2 Saturation 92.5 % (92-98.5)
[2022-06-10 01:49] LABS: Blood Morphology Comment NOTED (NOT SEEN); Platelet Estimate ADEQ; Polychromasia 1+; Target Cells 1+; Teardrop Cell 1+
[2022-06-10 02:16] LABS: SARS-COV-2 RT PCR NEGATIVE (NEGATIVE)
--- NOTE | 2022-06-10 08:35 | RAD REPORT ---
EXAM DESCRIPTION: RAD - Chest Single View - 06/09/2022 11:31 pmD CLINICAL HISTORY: 1 years Female, SOB COMPARISON: Chest radiograph dated 05/10/2022 FINDINGS: Bilateral interstitial opacities. No pleural effusion. No pneumothorax. Cardiomediastinal silhouette is within normal limits. No acute osseous abnormality. IMPRESSION: Positive for pulmonary opacities. Differential diagnosis includes viral infections. Electronically signed by: Connor Landers DO 06/09/2022 11:44 PM ROD PULLER Due to temporary technical issues with the PACS/Fluency reporting system, reports are being signed by the in house radiologists without review as a courtesy to insure prompt reporting. The interpreting radiologist is fully responsible for the content of the report
--- NOTE | 2022-06-10 09:02 | RAD REPORT ---
EXAM DESCRIPTION: CT - Head Brain Wo Cont - 06/10/2022 1:43 am CLINICAL HISTORY: 51 years Female MENTAL STATUS CHANGE COMPARISON: None TECHNIQUE: Contiguous axial images of the brain were obtained without the administration of intraven ous contrast.This exam was performed according to our departmental dose-optimization program which in cludes use of Automated Exposure Control, adjustment of the mA and/or kV according to patient size an d/or use of iterative reconstruction technique. DLP: 866 mGy*cm FINDINGS: Brain: No acute intracranial hemorrhage. No extra-axial collection. No mass effect or kimberly iation. Prominence of the sulci and cisterns. Confluent periventricular and subcortical white matte r hypodensity is noted. Ventricles: Allowing for underlying cerebral volume loss, ventricular size appears within normal limi ts. Globes and orbits: No acute abnormality. Bones: No acute osseous finding Paranasal sinuses: Paranasal sinuses are clear. Mastoid air cells: Left mastoid effusion. Soft tissues: Within normal limits IMPRESSION: 1. No acute hemorrhage, hydrocephalus or herniation. 2. Cerebral volume loss and chronic small vessel ischemic changes. Consider MRI brain for further laney luation. 3. Left mastoid effusion. Electronically signed by: Connor Landers DO 06/10/2022 1:32 AM SERVICE AND REPAIR SUPERVISOR Due to temporary technical issues with the PACS/Fluency reporting system, reports are being signed by the in house radiologists without review as a courtesy to insure prompt reporting. The interpreting radiologist is fully responsible for the content of the report
--- NOTE | 2022-06-10 09:10 | RAD REPORT ---
EXAM DESCRIPTION: CT - Abdomen Pelvis W Contrast - 06/10/2022 2:16 am CLINICAL HISTORY: The patient is 51 years old and is Female; DYSPNEA TECHNIQUE: Axial computed tomographic angiography images of the chest and axial computed tomography images of the abdomen and pelvis with intravenous contrast. This CT exam was performed using one or more of the following dose reduction techniques: automated exposure control, adjustment of the mA and/or kV according to patient size, and/or use of iterative reconstruction technique. MIP reconstructed images were created and reviewed. Oblique reformatted images were created and reviewed. DLP: 1687 mGy*cm COMPARISON: Chest radiograph of the same day and CT chest, abdomen and pelvis dated 05/10/2022. FINDINGS: CHEST: AORTA: No acute findings. No aortic aneurysm. No dissection. PULMONARY ARTERIES: Unremarkable as visualized. No pulmonary embolism is identified. GREAT VESSELS OF AORTIC ARCH: No acute findings. No dissection. No arterial occlusion or signi ficant stenosis. LUNGS: Bilateral groundglass opacities and interlobular septal thickening. Consolidation in the antoni ng bases without focal lungs, left greater than right. PLEURAL SPACE: Small bilateral pleural effusions. No pneumothorax. HEART: Unremarkable. No cardiomegaly. No significant pericardial effusion. ABDOMEN: LIVER: Advanced hepatic cirrhosis with heterogeneous parenchyma. GALLBLADDER AND BILE DUCTS: Unremarkable. No calcified stones. No ductal dilation. PANCREAS: Unremarkable. No ductal dilation. No mass. SPLEEN: Unremarkable. No splenomegaly. ADRENALS: Unremarkable. No mass. KIDNEYS AND URETERS: Unremarkable. No hydronephrosis. No solid mass. STOMACH AND BOWEL: Unremarkable. No obstruction. No mucosal thickening. PELVIS: APPENDIX: The appendix is seen and is within normal limits. BLADDER: Bladder is decompressed with Mendoza catheter. REPRODUCTIVE: Unremarkable as visualized. CHEST, ABDOMEN and PELVIS: INTRAPERITONEAL SPACE: Mild abdominal and pelvic ascites. No free air. BONES/JOINTS: Unchanged superior endplate irregularity of L2. Diffuse osteopenia and multilevel degenerative changes. No acute fracture. No dislocation. SOFT TISSUES: Mild soft tissue anasarca. LYMPH NODES: Mediastinal and bihilar lymphadenopathy IMPRESSION: 1. No pulmonary embolism. 2. Commonly reported imaging features of COVID pneumonia are present. Other processes such as influ jeffrey pneumonia and organizing pneumonia, as can be seen with drug toxicity and connective tissue dise ase, can cause similar imaging pattern. PneTyp. 3. Small bilateral pleural effusions. 4. Advanced hepatic cirrhosis with heterogeneous parenchyma. Underlying mass cannot be excluded. 5. Unchanged superior endplate irregularity of L2. 6. Mild abdominal and pelvic ascites. 7. Mediastinal and bihilar lymphadenopathy. Electronically signed by: Connor Landers DO 06/10/2022 1:39 AM ACCOUNTING GENERALIST Due to temporary technical issues with the PACS/Fluency reporting system, reports are being signed by the in house radiologists without review as a courtesy to insure prompt reporting. The interpreting radiologist is fully responsible for the content of the report
--- NOTE | 2022-06-10 09:34 | RAD REPORT ---
EXAM DESCRIPTION: CT - Chest For Pe Angio - 06/10/2022 2:17 am CLINICAL HISTORY: The patient is 51 years old and is Female; DYSPNEA TECHNIQUE: Axial computed tomographic angiography images of the chest and axial computed tomography images of the abdomen and pelvis with intravenous contrast. This CT exam was performed using one or more of the following dose reduction techniques: automated exposure control, adjustment of the mA and/or kV according to patient size, and/or use of iterative reconstruction technique. MIP reconstructed images were created and reviewed. Oblique reformatted images were created and reviewed. DLP: 1687 mGy*cm COMPARISON: Chest radiograph of the same day and CT chest, abdomen and pelvis dated 05/10/2022. FINDINGS: CHEST: AORTA: No acute findings. No aortic aneurysm. No dissection. PULMONARY ARTERIES: Unremarkable as visualized. No pulmonary embolism is identified. GREAT VESSELS OF AORTIC ARCH: No acute findings. No dissection. No arterial occlusion or signi ficant stenosis. LUNGS: Bilateral groundglass opacities and interlobular septal thickening. Consolidation in the antoni ng bases without focal lungs, left greater than right. PLEURAL SPACE: Small bilateral pleural effusions. No pneumothorax. HEART: Unremarkable. No cardiomegaly. No significant pericardial effusion. ABDOMEN: LIVER: Advanced hepatic cirrhosis with heterogeneous parenchyma. GALLBLADDER AND BILE DUCTS: Unremarkable. No calcified stones. No ductal dilation. PANCREAS: Unremarkable. No ductal dilation. No mass. SPLEEN: Unremarkable. No splenomegaly. ADRENALS: Unremarkable. No mass. KIDNEYS AND URETERS: Unremarkable. No hydronephrosis. No solid mass. STOMACH AND BOWEL: Unremarkable. No obstruction. No mucosal thickening. PELVIS: APPENDIX: The appendix is seen and is within normal limits. BLADDER: Bladder is decompressed with Mendoza catheter. REPRODUCTIVE: Unremarkable as visualized. CHEST, ABDOMEN and PELVIS: INTRAPERITONEAL SPACE: Mild abdominal and pelvic ascites. No free air. BONES/JOINTS: Unchanged superior endplate irregularity of L2. Diffuse osteopenia and multilevel degenerative changes. No acute fracture. No dislocation. SOFT TISSUES: Mild soft tissue anasarca. LYMPH NODES: Mediastinal and bihilar lymphadenopathy IMPRESSION: 1. No pulmonary embolism. 2. Commonly reported imaging features of COVID pneumonia are present. Other processes such as influ jeffrey pneumonia and organizing pneumonia, as can be seen with drug toxicity and connective tissue dise ase, can cause similar imaging pattern. PneTyp. 3. Small bilateral pleural effusions. 4. Advanced hepatic cirrhosis with heterogeneous parenchyma. Underlying mass cannot be excluded. 5. Unchanged superior endplate irregularity of L2. 6. Mild abdominal and pelvic ascites. 7. Mediastinal and bihilar lymphadenopathy. Electronically signed by: Connor Landers DO 06/10/2022 1:39 AM FARMER AND GRAZIER Due to temporary technical issues with the PACS/Fluency reporting system, reports are being signed by the in house radiologists without review as a courtesy to insure prompt reporting. The interpreting radiologist is fully responsible for the content of the report
--- NOTE | 2022-06-10 16:20 | EKG ---
Test Date: 2022-06-09 Test Time: 23:51:57 Wood Block Artist: JIMMIE MEASUREMENT RESULTS: Intervals: Rate: 111 VA: 142 QRSD: 80 QT: 374 QTc: 508 Streeter: P: 58 VA: 142 QRS: 65 T: 38 INTERPRETIVE STATEMENTS: Sinus tachycardia Low voltage QRS Nonspecific T wave abnormality Abnormal ECG Compared to ECG 05/10/2022 19:03:05 Low QRS voltage now present T-wave abnormality now present Electronically Signed On 06-10-22 16:19:23 BUTTON MAKER by Bayron Gonzalez
--- NOTE | 2022-06-25 15:27 | ER ---
Nurse's Notes [facility] Name: Maria Fernanda Walker Age: 51 yrs Sex: Female : 1970 Arrival Date: 06/09/2022 Time: 22:51 Bed 8 Private MD: Diagnosis: Severe sepsis with septic shock;Alcoholic cirrhosis of liver;UTI/ Urinary tract infection, site not specified;Other pneumonia, unspecified organism Presentation: 06/09 23:23 Chief complaint: EMS states: toned out for SOB, difficulty breathing and loss of lg3 consciousness. family stated that they were eating dinner and all of a sudden pt became very agitated and anxious stating she could not breathe. shortly after PT's eyes began rolling and she became unresponsive to all stimuli. oxygen levels in low 80's on ems arrival to pts residence. placed on CPAP. pt became combative prior to arrival. 2mg Ativan administered by EMS. Coronavirus screen: Client denies travel out of the [place] in the last 14 days. Ebola Screen: No symptoms or risks identified at this time. Initial Sepsis Screen: Does the patient meet any 2 criteria? RR > 20 per min. Altered Mental Status. Yes Does the patient have a suspected source of infection? No. Patient's initial sepsis screen is negative. Risk Assessment: Do you want to hurt yourself or someone else? Patient reports no desire to harm self or others. Onset of symptoms is unknown. 23:23 Method Of Arrival: EMS: [facility] lg3 23:23 Acuity: YONI 2 lg3 Triage Assessment: 23:30 General: Appears distressed, Behavior is flat. Pain: Unable to use pain scale. Patient lg3 is unresponsive. EENT: No deficits noted. Neuro: Clif[place] Agitation-Sedation Scale (RASS): Level of Consciousness is unresponsive. Cardiovascular: No deficits noted. Capillary refill < 3 seconds Clubbing of nail beds is absent Patient's skin is warm and dry. Rhythm is sinus tachycardia. Respiratory: Airway is patent Respiratory effort is labored, Respiratory pattern is tachypnea Patient placed CPAP:. GI: No deficits noted. : No deficits noted. Derm: Skin is intact, Skin is dry, Skin is jaundiced, Skin temperature is warm pitting edema noted to bilateral legs. Musculoskeletal: Swelling present in right leg and left leg. Historical: - Allergies: 23:30 Codeine; lg3 23:30 PENICILLINS; lg3 - PMHx: 23:30 Anxiety; Hypertensive disorder; liver failure; lg3 - PSHx: 23:30 knee repair; lg3 - Immunization history:: Adult Immunizations up to date. - Social history:: Smoking status: Reported history of juuling and/or vaping. Screenin/09 04:03 [facility] ED Fall Risk Assessment (Adult) History of falling in the last 3 months, lg3 including since admission No falls in past 3 months (0 pts). Abuse screen: Denies threats or abuse. Denies injuries from another. Nutritional screening: No deficits noted. Tuberculosis screening: No symptoms or risk factors identified. Assessment: 06/09 23:34 General: see triage assessment . lg3 06/10 00:20 Reassessment: Patient appears in no apparent distress at this time. No changes from lg3 previously documented assessment. Patient and/or family updated on plan of care and expected duration. Pain level reassessed. General:. 01:03 General: pt became combative in CT. provider notified . lg3 03:19 General: Appears in no apparent distress. comfortable. Neuro: Clifton lg3 Agitation-Sedation Scale (RASS): -2 Light sedation Level of Consciousness is unresponsive. Cardiovascular: No deficits noted. Respiratory: Airway is patent Respiratory effort is even, unlabored, Respiratory pattern is regular, symmetrical. 03:48 General: pt became combative when transferring to EMS stretcher. provider notified. . lg3 Vital Signs: 06/09 23:23 BP 132 / 83; Pulse 122; Resp 25; Temp 97.4(O); Pulse Ox 99% on 50 lpm CPAP; Weight lg3 99.79 kg (R); Height 5 ft. 6 in. (R); 06/10 01:34 BP 131 / 74; Pulse 113; Resp 22; Pulse Ox 100% on 50 lpm BiPAP; lg3 03:19 BP 104 / 65; Pulse 107; Resp 19; Pulse Ox 100% on 50 lpm BiPAP; lg3 06/09 23:23 Body Mass Index 35.51 (99.79 kg, 167.64 cm) lg3 ED Course: 06/09 22:51 Patient arrived in ED. vc1 22:53 Jaxon Lancaster PA is PHCP. cp 22:53 Foster High MD is Attending Physician. cp 23:23 Moni Kiser, RN is Primary Nurse. lg3 23:30 Triage completed. lg3 23:30 Arm band placed on right wrist. lg3 23:33 Chest Single View XRAY In Process Unspecified. EDMS 23:48 ETOH Level Sent. lg3 23:48 AMMONIA Sent. lg3 23:48 Blood Culture Adult (2) Sent. lg3 23:48 CBC with Diff Sent. lg3 23:48 CMP Sent. lg3 23:48 Lactate w/ 2H reflex if indic. Sent. lg3 23:48 Protime (+inr) Sent. lg3 23:48 Ptt, Activated Sent. lg3 23:51 Type And Screen Sent. lg3 23:51 BNP Sent. lg3 03/09 00:36 Inserted saline lock: 20 gauge in right forearm, using aseptic technique. Blood lg3 collected. Maintain EMS IV. Dressing intact. Good blood return noted. Site clean \T\ dry. Gauge \T\ site: 20 LAC. 00:37 Mendoza cath inserted, using sterile technique, 12 Fr., returned hadley urine. Patient lg3 tolerated well. 01:19 CT Head Brain wo Cont In Process Unspecified. EDMS 01:24 CT Abd/Pelvis - IV Contrast Only In Process Unspecified. EDMS 01:25 CT Chest For PE Angio In Process Unspecified. EDMS 01:43 LAB Add On Sent. lg3 01:53 Initiated transfer with Maira at [facility]. rv1 01:58 COVID-19/FLU A+B/RSV Sent. rv1 02:23 [facility] called for Doc to Doc with Jaxon BERMEO. rv1 04:03 Patient has correct armband on for positive identification. Placed in gown. Bed in low lg3 position. Call light in reach. Side rails up X2. Client placed on continuous cardiac and pulse oximetry monitoring. NIBP monitoring applied. site monitor on. Door closed. Noise minimized. Warm blanket given. Family accompanied patient. 04:03 No provider procedures requiring assistance completed. Patient transferred, IV remains lg3 in place. intact, No redness/swelling at site. Administered Medications: 00:35 Drug: NS 0.9% IV 250 ml Route: IV; Rate: bolus; Site: right forearm; lg3 03:18 Follow up: IV Status: Completed infusion; IV Intake: 250ml lg3 00:36 Drug: Meropenem IV 1 grams Route: IV; Rate: calculated rate; Site: left antecubital; lg3 01:43 Follow up: Response: No adverse reaction; IV Status: Completed infusion; IV Intake: lg3 100ml 00:36 Drug: vancoMYCIN IVPB 1 grams Route: IVPB; Infused Over: 2 hrs; Site: right forearm; lg3 03:18 Follow up: IV Status: Completed infusion lg3 01:03 Drug: Midazolam IVP or IV 2 mg Route: IVP; Site: left antecubital; lg3 01:44 Follow up: Response: No adverse reaction; Marked relief of symptoms; Anxiety decreased; lg3 RASS: Light sedation (-2) 03:18 Drug: NS 0.9% IV 1000 ml Route: IV; Rate: 1000 ml; Site: left antecubital; lg3 03:48 Drug: Midazolam IVP or IV 2 mg Route: IVP; Site: left antecubital; lg3 Medication: 04:06 VIS not applicable for this client. lg3 Intake: 01:43 IV: 100ml; Total: 100ml. lg3 03:18 IV: 250ml; Total: 350ml. lg3 Outcome: 01:56 ER care complete, transfer ordered by MD. cp 04:00 Patient left the ED. as6 04:03 Transferred by ground EMS to [facility], Transfer form completed. lg3 04:03 Condition: stable 04:03 Instructed on the need for transfer. Addendum: 06/17/2022 08:00 Addendum: Culture Results: Positive urine culture. Results faxed to [facility] ICU a a5 (spoke to carlos Aldana's nurse). Signatures: Dispatcher [employer] EDMS Catie Camargo RN RN aa5 Jaxon Lancaster PA PA cp Gibson, Lacie, RN RN lg3 Skyler Galloway RN RN as6 Ly Cordova RN RN vc1 Regla Belcher rv1 Corrections: (The following items were deleted from the chart) 06/09 23:50 23:23 Chief complaint: EMS states: toned out for SOB, difficulty breathing and loss of lg3 consciousness. family stated that they were eating dinner and all of a sudden pt became very agitated and anxious stating she could not breathe. shortly after PT's eyes began rolling and she became unresponsive to all stimuli. lg3 23:51 23:23 Chief complaint: EMS states: toned out for SOB, difficulty breathing and loss of lg3 consciousness. family stated that they were eating dinner and all of a sudden pt became very agitated and anxious stating she could not breathe. shortly after PT's eyes began rolling and she became unresponsive to all stimuli. pt became combative prior to arrival. mg ativan administeered by EMS lg3 03 03:24 01:34 BP 131 / 74; Pulse 113bpm; Resp 22bpm; Pulse Ox 100% 02 50lpm CPAP; lg3 lg3
--- NOTE | 2022-06-25 15:27 | EDPHYS ---
Physician Documentation [facility] Name: Maria Fernanda Walker Age: 51 yrs Sex: Female : 1970 Arrival Date: 06/09/2022 Time: 22:51 Bed 8 Private MD: ED Physician Foster High HPI: 06/09 23:10 This 51 yrs old Female presents to ER via EMS with complaints of Difficulty Breathing. cp 23:10 The patient has shortness of breath at rest. cp 23:10 Onset: The symptoms/episode began/occurred today. cp 23:10 Duration: The symptoms are continuous, and are steadily getting worse. Associated signs cp and symptoms: Pertinent negatives: fever. Severity of symptoms: in the emergency department the symptoms are unchanged despite home interventions. Unable to obtain HPI due to altered mental status, Patient given 2 mg Ativan by EMS prior to arrival. Historical: - Allergies: 23:30 Codeine; lg3 23:30 PENICILLINS; lg3 - PMHx: 23:30 Anxiety; Hypertensive disorder; liver failure; lg3 - PSHx: 23:30 knee repair; lg3 - Immunization history:: Adult Immunizations up to date. - Social history:: Smoking status: Reported history of juuling and/or vaping. ROS: 23:15 Constitutional: Negative for fever, poor PO intake. cp 23:15 Cardiovascular: Negative for chest pain. cp 23:15 Respiratory: Positive for shortness of breath, at rest. 23:15 Abdomen/GI: Negative for vomiting, diarrhea, constipation. 23:15 Neuro: Positive for altered mental status. Exam: 23:20 Head/Face: Normocephalic, atraumatic. cp 23:20 Constitutional: The patient appears non-diaphoretic, well developed, well nourished, obviously ill. 23:20 Eyes: Periorbital structures: appear normal, Pupils: equal, round, and reactive to light and accomodation, Sclera: icterus, is present, Lids and lashes: appear normal, bilaterally. 23:20 ENT: External ear(s): are unremarkable, Ear canal(s): are normal, clear, TM's: dullness, bilaterally, Nose: is normal, Mouth: Lips: moist, Oral mucosa: moist, Posterior pharynx: Airway: no evidence of obstruction, patent. 23:20 Chest/axilla: Inspection: normal. cp 23:20 Cardiovascular: Rate: tachycardic, Rhythm: regular, Edema: ankle edema, that is moderate, JVD: is not appreciated. 23:20 Respiratory: moderate respiratory distress is noted, Respirations: labored breathing, that is moderate, Breath sounds: bronchial sounds, that are moderate, are heard diffusely. 23:20 Abdomen/GI: Inspection: distension, that is moderate, Bowel sounds: active, all quadrants, Palpation: soft, in all quadrants. 23:20 Skin: Appearance: Color: jaundiced. 23:20 Neuro: Orientation: unable to test, the patient is medicated, Mentation: somnolent. 23:57 ECG was reviewed by the Attending Physician. cp Vital Signs: 23:23 BP 132 / 83; Pulse 122; Resp 25; Temp 97.4(O); Pulse Ox 99% on 50 lpm CPAP; Weight lg3 99.79 kg (R); Height 5 ft. 6 in. (R); 06/10 01:34 BP 131 / 74; Pulse 113; Resp 22; Pulse Ox 100% on 50 lpm BiPAP; lg3 03:19 BP 104 / 65; Pulse 107; Resp 19; Pulse Ox 100% on 50 lpm BiPAP; lg3 06/09 23:23 Body Mass Index 35.51 (99.79 kg, 167.64 cm) lg3 MDM: 06/09 22:58 Patient medically screened. cp 23:45 Differential diagnosis: Anemia CHF exacerbation, Myocardial Infarction pneumonia, cp Pneumothorax pulmonary edema, Pulmonary Embolism Sepsis. 06/10 00:37 ED course: due to concern for pulmonary edema, will not give 30 cc/kg bolus and only cp give 250 mL bolus. 02:30 Management of patient was discussed with the following: DR Odonnell, graduate assistant athletic trainer [facility], will accept patient as transfer after discussing results of labs, radiology studies and EKG. 02:30 Data reviewed: vital signs, nurses notes, lab test result(s), EKG, radiologic studies, cp CT scan, plain films. 02:30 Antibiotic administration: Cefepime and Vancomycin. Historians other than the Patient: cp Family Member: sister provides HPI. Care significantly affected by the following chronic conditions: Hypertension, Liver Disease. Response to treatment: the patient's symptoms have mildly improved after treatment. 03 23:06 Order name: ABG; Complete Time: 23:55 cp 06/09 23:06 Order name: Blood Culture Adult (2) cp 06/09 23:06 Order name: CBC with Diff; Complete Time: 02:18 cp 06/10 00:30 Interpretation: Normal except: WBC 32.00; RBC 2.51; HGB 7.4; HCT 23.3; MCHC 31.9; RDW cp 17.5; NEUT A 16.3; LYMA 13.5; MNA 1.7. 06/09 23:06 Order name: CMP; Complete Time: 00:41 cp 06/10 02:29 Interpretation: Normal except: K 3.3; CL 108; CO2 18; ANION GAP 15.3; GLUC 115; CRE cp 1.35; GFR 48; AST 125; ALT 87; ALK 268; BILIT 12.2; ALB 2.3; GLOB 4.5; A/G 0.5. 06/09 23:06 Order name: Lactate w/ 2H reflex if indic.; Complete Time: 00:41 cp 06/09 23:06 Order name: Protime (+inr); Complete Time: 00:29 cp 06/09 23:06 Order name: Ptt, Activated; Complete Time: 00:29 cp 06/09 23:06 Order name: Urine Culture cp 06/09 23:06 Order name: Urine Microscopic Only; Complete Time: 01:10 cp 06/10 02:26 Interpretation: Reviewed. cp 06/09 23:06 Order name: UDS; Complete Time: 01:03 cp 06/09 23:06 Order name: AMMONIA; Complete Time: 01:03 cp 06/09 23:11 Order name: ETOH Level; Complete Time: 01:03 cp 06/09 23:21 Order name: COVID-19/FLU A+B/RSV; Complete Time: 02:18 vc1 06/09 23:42 Order name: BNP; Complete Time: 00:41 cp 06/09 23:44 Order name: Type And Screen; Complete Time: 01:43 cp 06/09 23:59 Order name: Glucose, Ancillary Testing; Complete Time: 00:11 EDMS 06/10 00:30 Order name: Manual Differential; Complete Time: 02:18 EDMS 06/10 02:29 Interpretation: Normal except: SEGS 84; BANDS [F] 2; LYM 7. cp 06/10 00:33 Order name: Urine Dipstick-Ancillary; Complete Time: 00:41 EDMS 06/10 00:39 Order name: ABG; Complete Time: 02:18 lg3 06/10 01:05 Order name: Troponin High Sensitivity; Complete Time: 01:43 cp 06/10 01:43 Interpretation: Abnormal: Troponin HS 396.4. cp 06/10 01:05 Order name: LAB Add On cp 06/09 23:06 Order name: CT Head Brain wo Cont cp 06/09 23:06 Order name: Chest Single View XRAY cp 06/10 00:12 Order name: CT Chest For PE Angio bs3 06/10 00:21 Order name: CT Abd/Pelvis - IV Contrast Only cp 06/10 03:26 Order name: BIPAP: 10/5 40% rr16 bs3 06/09 23:06 Order name: EKG; Complete Time: 23:07 cp 06/09 23:06 Order name: Accucheck; Complete Time: 23:48 cp 06/09 23:06 Order name: Cardiac monitoring; Complete Time: 23:48 cp 06/09 23:06 Order name: Cath; Complete Time: 00:35 cp 06/09 23:06 Order name: EKG - Nurse/Tech; Complete Time: 23:48 cp 06/09 23:06 Order name: IV Saline Lock - Large Bore; Complete Time: 23:48 cp 06/09 23:06 Order name: Labs collected and sent; Complete Time: 23:48 cp 06/09 23:06 Order name: O2 Per Protocol; Complete Time: 23:48 cp 06/09 23:06 Order name: O2 Sat Monitoring; Complete Time: 23:48 cp 06/09 23:06 Order name: Urine Dipstick-Ancillary (obtain specimen); Complete Time: 00:35 cp 06/09 23:06 Order name: Urine Test (obtain specimen); Complete Time: 00:35 cp 06/09 23:06 Order name: Vital Signs; Complete Time: 23:48 cp EC/08 23:57 Rate is 111 beats/min. Rhythm is regular. ND interval is normal. QRS interval is cp normal. QT interval is normal. Interpreted by me. Reviewed by me. Administered Medications: 06/10 00:35 Drug: NS 0.9% IV 250 ml Route: IV; Rate: bolus; Site: right forearm; lg3 03:18 Follow up: IV Status: Completed infusion; IV Intake: 250ml lg3 00:36 Drug: Meropenem IV 1 grams Route: IV; Rate: calculated rate; Site: left antecubital; lg3 01:43 Follow up: Response: No adverse reaction; IV Status: Completed infusion; IV Intake: lg3 100ml 00:36 Drug: vancoMYCIN IVPB 1 grams Route: IVPB; Infused Over: 2 hrs; Site: right forearm; lg3 03:18 Follow up: IV Status: Completed infusion lg3 01:03 Drug: Midazolam IVP or IV 2 mg Route: IVP; Site: left antecubital; lg3 01:44 Follow up: Response: No adverse reaction; Marked relief of symptoms; Anxiety decreased; lg3 RASS: Light sedation (-2) 03:18 Drug: NS 0.9% IV 1000 ml Route: IV; Rate: 1000 ml; Site: left antecubital; lg3 03:48 Drug: Midazolam IVP or IV 2 mg Route: IVP; Site: left antecubital; lg3 Disposition: 02:34 Critical Care:. cp Disposition Summary: 06/10/22 01:56 Transfer Ordered Transfer Location: [facility] cp Reason: Higher level of care cp Condition: Critical cp Problem: new cp Symptoms: have improved cp Accepting Physician: DR Odonnell(06/10/22 04:00) as6 Diagnosis - Severe sepsis with septic shock cp - Alcoholic cirrhosis of liver cp - UTI/ Urinary tract infection, site not specified cp - Other pneumonia, unspecified organism cp Forms: - Medication Reconciliation Form cp - SBAR form cp Critical care time excluding procedures: 02:34 Critical care time: Bedside Care: 10 minutes, Consultation: 25 minutes, Family cp Intervention: 10 minutes. Total time: 45 minutes Signatures: Dispatcher [employer] EDMS Jaxon Lancaster PA PA cp Gibson, Lacie, RN RN lg3 Skyler Galloway RN RN as6 Foster High MD MD bs3 Monica Chin PA-C PA-C sb4 Corrections: (The following items were deleted from the chart) 00:24 00:23 This 51 yrs old Female presents to ER via EMS with complaints of Difficulty cp Breathing. cp 00:36 0308 23:44 Chest Abdomen Pelvis W Con+CT.RAD.BRZ ordered. EDMS EDMS 06/10 01:32 01:18 SARS-COV-2 Antigen Rapid+I.LAB.BRZ ordered. EDMS EDMS 02:33 01:56 Doctor cp cp 04:00 02:33 DR Odonnell cp as6
== END 2022-06-10 04:00 | disposition short-term general hospital (02) ==
LOC: ER 22:47
DX: A41.9 Sepsis, unspecified organism (principal); R65.21 Severe sepsis with septic shock; K70.30 Alcoholic cirrhosis of liver without ascites; N39.0 Urinary tract infection, site not specified; J18.8 Other pneumonia, unspecified organism; I10 Essential (primary) hypertension; Z20.822 Contact with and (suspected) exposure to COVID-19; Z88.0 Allergy status to penicillin; Z88.5 Allergy status to narcotic agent
CPT/HCPCS: 93005; 87040 ×2; 87088; 85025; 87086; 36415; 82140; 86900; 86850; 85610; 86901; 82947; 83605; 85730; 87077; 87186; 84484; 80053; 83880; 0241U; 80307; 70450; 71275; 74177; 71045; 82805 ×2; 94660; 51702; 99285; Q9967; J2250 ×2; J2185; J7050; G0480; 81003; 81015